=== PATIENT | female | born 1950 | race Caucasian/White ===

== ENCOUNTER 2016-08-14 10:18 | Inpatient (IN) | payer OTHER ==
[~2016-08-14] VITALS: Ht 160 cm; Wt 79.5 kg
[~2016-08-14 10:18] MED LIST: ALPR1TAB2 PO; LEVA0.31 IN; MEMA10TA PO; PRE1T PO; ZOLP10TA PO
[2016-08-14] MEDS ORDERED: ALBUTEROL SULF 2.5 MG/0.5ML(0.5%) NEB SOLN NEB ONE (10:30)
[2016-08-14] MEDS ORDERED: IPRATROPIUM BROM 0.5 MG/2.5ML INH SOL NEB ONE (10:30)
[2016-08-14] MEDS ORDERED: BUDE0.253 IN (10:41)
[2016-08-14] MEDS ORDERED: ALBU1TAB2 PO (10:41)
[2016-08-14] MEDS ORDERED: CITA-73 PO (10:44)
[2016-08-14] MEDS ORDERED: CARI-277 PO (10:44)
[2016-08-14] MEDS ORDERED: MONT10TA34 PO (10:44)
[2016-08-14] MEDS ORDERED: OMEP20CA5 PO (10:44)
[2016-08-14] MEDS ORDERED: ALBUAER3 IN (10:44)
[2016-08-14] MEDS ORDERED: FURO40TA PO (10:44)
[2016-08-14 10:52] LABS: Basophils # (auto) 0.1 uL; Basophils % (auto) 1.7 % (0.0-2.0); DEFINITIVE VIEW TRANSMISSION; Eosinophils # (auto) 0.6 uL; Hematocrit 43.3 % (36.0-46.0); Hemoglobin 13.8 g/dL (12.2-16.2); Lymphocytes # (auto) 1.6 uL; Lymphocytes % (auto) 28.1 % (10.0-50.0); Mean Corpuscular Hgb Conc. 31.9 g/dL (32.0-36.0); Mean Corpuscular Volume 90.9 fL (80.0-100.0); Mean Platelet Volume 7.9 fL (7.4-10.4); Monocytes # (auto) 0.5 uL; Monocytes % (auto) 8.7 % (0.0-12.0); Neutrophils # (auto) 2.9 uL; Neutrophils % (auto) 50.5 % (37.0-80.0); Platelet Count (auto) 345 10^3/uL (140-450); Red Cell Distribution Width 19.1 % (11.6-16.0); White Blood Cell 5.8 10^3/uL (4.4-10.8)
[2016-08-14 11:20] LABS: BUN/Creatinine Ratio 12.3; Bilirubin, Total 0.3 mg/dL (0.2-1.0); Calcium 8.8 mg/dL (8.5-10.1); Potassium 3.7 mmol/L (3.5-5.1); Total Protein 7.5 g/dL (6.4-8.2)
[2016-08-14] MEDS ORDERED: methylPREDNISolone SOD SUCC 125 MG/2 ML VL IV ONE (11:45)
[2016-08-14 13:36] LABS: Anisocytosis Slight; Platelet Estimate Adequate
[2016-08-14] MEDS ORDERED: cefTRIAXone 1GM/50ML D5W 50 ML IV ONE (15:45)
[2016-08-14] MEDS ORDERED: ONDANSETRON HCL 4 MG/2 ML VIAL IV PRN (15:45)
[2016-08-14] MEDS ORDERED: HCTZ 25 MG TAB PO PRN (15:45)
[2016-08-14] MEDS ORDERED: BUDESONIDE (INHALATION) 0.5 MG/2 ML NEB NEB ONE (15:45)
[2016-08-14] MEDS ORDERED: ZOLPIDEM TARTRATE 5 MG TAB PO PRN (15:45)
[2016-08-14] MEDS ORDERED: DOCUSATE SOD 100 MG CAP PO PRN (15:45)
[2016-08-14] MEDS ORDERED: MORPHINE SULF INJ 2 MG/ML SYRINGE 1ML IV PRN ×2 (15:45)
[2016-08-14] MEDS ORDERED: NITROGLYCERIN 0.4 MG SL TAB SL PRN (15:45)
[2016-08-14] MEDS ORDERED: HYDROcodone-ACET 5/325MG TAB PO PRN (15:45)
[2016-08-14] MEDS: BUDESONIDE (INHALATION) 0.5 MG/2 ML NEB NEB SCH (18:15)
[2016-08-14] MEDS: ALBUTEROL SULF 2.5 MG/0.5ML(0.5%) NEB SOLN NEB SCH (18:16)
[2016-08-14] MEDS: IPRATROPIUM BROM 0.5 MG/2.5ML INH SOL NEB SCH (18:16)
[2016-08-14 20:00] VITALS: BP 110/56
[2016-08-14] MEDS: ACETAMINOPHEN 325 MG TAB PO PRN (20:33)
[2016-08-14] MEDS: PANTOPRAZOLE 40 MG TAB PO SCH (21:28)
[2016-08-14] MEDS: SODIUM CHLOR 0.9% PF (SALINE LOCK) 10ML VIAL IV SCH (21:30)
[2016-08-14 22:00] VITALS: BP 110/56
[2016-08-14 22:53] LABS: Urine Bilirubin Negative (Negative); Urine Blood Negative /uL (Negative); Urine Color Yellow (Yellow); Urine Glucose Normal (Normal); Urine Ketone Negative (Negative); Urine Nitrite Negative (Negative); Urine RBC 1 /hpf (0 - 4); Urine Squamous Epithelial Cell FEW /hpf (<5); Urine Urobilinogen Normal (Negative); Urine pH 6.5 (5.0-8.0)
[2016-08-15] VITALS (7 sets, daily range): BP systolic 116–132; BP diastolic 67–75
[2016-08-15] MEDS: ALBUTEROL SULF 2.5 MG/0.5ML(0.5%) NEB SOLN NEB SCH ×3 (01:22→12:00)
[2016-08-15] MEDS: IPRATROPIUM BROM 0.5 MG/2.5ML INH SOL NEB SCH ×3 (01:22→12:00)
[2016-08-15] MEDS: ACETAMINOPHEN 325 MG TAB PO PRN (05:10)
[2016-08-15] MEDS: SODIUM CHLOR 0.9% PF (SALINE LOCK) 10ML VIAL IV SCH (06:13)
[2016-08-15 06:44] LABS: Basophils # (auto) 0 uL; Basophils % (auto) 0.1 % (0.0-2.0); DEFINITIVE VIEW TRANSMISSION; Eosinophils # (auto) 0 uL; Hematocrit 40.4 % (36.0-46.0); Hemoglobin 12.8 g/dL (12.2-16.2); Lymphocytes # (auto) 1.1 uL; Lymphocytes % (auto) 31.7 % (10.0-50.0); Mean Corpuscular Hemoglobin 28.8 pg (28.0-32.0); Mean Corpuscular Hgb Conc. 31.8 g/dL (32.0-36.0); Mean Corpuscular Volume 90.8 fL (80.0-100.0); Mean Platelet Volume 7.7 fL (7.4-10.4); Monocytes # (auto) 0.4 uL; Monocytes % (auto) 10.5 % (0.0-12.0); Neutrophils % (auto) 57.7 % (37.0-80.0); Platelet Count (auto) 333 10^3/uL (140-450); Red Cell Distribution Width 19.3 % (11.6-16.0); White Blood Cell 3.5 10^3/uL (4.4-10.8)
[2016-08-15 07:17] LABS: Albumin 3.5 g/dL (3.4-5.0); Bilirubin, Total 0.2 mg/dL (0.2-1.0); Calcium 8.7 mg/dL (8.5-10.1); Potassium 3.8 mmol/L (3.5-5.1); Total Protein 6.9 g/dL (6.4-8.2)
[2016-08-15] MEDS ORDERED: cefTRIAXone 1GM/50ML D5W 50 ML IV SCH (09:00)
[2016-08-15] MEDS: PANTOPRAZOLE 40 MG TAB PO SCH (09:48)
[2016-08-15] MEDS ORDERED: CITALOPRAM HYDROBR 20 MG TAB PO SCH (10:00)
[2016-08-15] MEDS: BUDESONIDE (INHALATION) 0.5 MG/2 ML NEB NEB SCH (10:00)
[2016-08-15] MEDS ORDERED: PROMETHAZINE W/CODEINE 5 ML ORAL SYRUP PO PRN (13:15)
[2016-08-15] MEDS ORDERED: ALBUTEROL SULF 2.5 MG/0.5ML(0.5%) NEB SOLN NEB SCH (14:00)
[2016-08-15] MEDS ORDERED: IPRATROPIUM BROM 0.5 MG/2.5ML INH SOL NEB SCH (14:00)
[2016-08-15] MEDS ORDERED: methylPREDNISolone SOD SUCC 125 MG/2 ML VL IV ONE (15:30)
[2016-08-15] MEDS ORDERED: BUDESONIDE (INHALATION) 0.5 MG/2 ML NEB NEB ONE (15:30)
[2016-08-15] MEDS ORDERED: ACETYLCYSTEINE 20%(200MG/ML) SOL 4ML NEB ONE ×2 (16:00→22:00)
== END 2016-08-15 19:35 | disposition home health service (06) | DRG 189 ==
LOC: ER 10:22 → TELE 10:23 → TELE-EAST 19:04
PROVIDERS: ADMIT Internal Medicine; ATTEND Internal Medicine
DX: J96.90 Respiratory failure, unspecified, unspecified whether with hypoxia or hypercapnia (principal); J44.1 Chronic obstructive pulmonary disease with (acute) exacerbation; J45.901 Unspecified asthma with (acute) exacerbation; J44.0 Chronic obstructive pulmonary disease with (acute) lower respiratory infection; I70.0 Atherosclerosis of aorta; K21.9 Gastro-esophageal reflux disease without esophagitis; J20.9 Acute bronchitis, unspecified; N18.2 Chronic kidney disease, stage 2 (mild); I12.9 Hypertensive chronic kidney disease with stage 1 through stage 4 chronic kidney disease, or unspecified chronic kidney disease; Z80.9 Family history of malignant neoplasm, unspecified
CPT/HCPCS: 36415; 36600; 71010; 80053; 81001; 82805; 84484; 85025; 87070; 87086; 87205; 93005; 93306; 94640; 96365; 96375; J0696

== ENCOUNTER 2017-03-17 09:28 | Emergency (ER) | payer OTHER ==
[~2017-03-17] VITALS: Ht 160 cm; Wt 79.4 kg
[~2017-03-17 09:28] MED LIST changes: +ALBU1TAB2 PO; +ALBUAER3 IN; -ALPR1TAB2 PO; +BUDE0.253 IN; +CITA-73 PO; +FURO40TA PO; -LEVA0.31 IN; -MEMA10TA PO; +MONT10TA34 PO; +OMEP20CA74 PO; -PRE1T PO; -ZOLP10TA PO
[2017-03-17] MEDS ORDERED: ALPR0.5T PO (10:32)
[2017-03-17] MEDS ORDERED: CARI-277 PO (10:32)
[2017-03-17] MEDS ORDERED: BECL0.07 INH (10:32)
[2017-03-17] MEDS ORDERED: IPRASOL39 NEB (10:32)
[2017-03-17] MEDS ORDERED: UMEC1AER IN (10:33)
[2017-03-17 10:51] LABS: Albumin 3.6 g/dL (3.4-5.0); Alkaline Phosphatase 67 U/L (45-117); Anion Gap 6 (5-15); Aspartate Aminotransferase 13 U/L (15-37); BUN/Creatinine Ratio 18.6; Bilirubin, Total 0.5 mg/dL (0.2-1.0); Blood Urea Nitrogen 13 mg/dL (7-18); Calcium 8.8 mg/dL (8.5-10.1); Carbon Dioxide 28 mmol/L (21-32); Chloride 107 mmol/L (98-107); GFR African American 108 mL/min; GFR Non-African American 89 mL/min; Glucose 96 mg/dL (74-106); Magnesium 2.3 mg/dL (1.6-2.6); Potassium 4.3 mmol/L (3.5-5.1); Sodium 141 mmol/L (136-145); Total Protein 6.7 g/dL (6.4-8.2)
[2017-03-17 11:16] LABS: Basophils # (auto) 0.1 uL; Basophils % (auto) 1.9 % (0.0-2.0); CONDITION Y; DEFINITIVE SEE PRINTOUT; Eosinophils # (auto) 0.8 uL; Eosinophils % (auto) 12.5 % (0.0-7.0); Hematocrit 41.7 % (36.0-46.0); Hemoglobin 14.1 g/dL (12.2-16.2); Lymphocytes # (auto) 2.2 uL; Lymphocytes % (auto) 32.6 % (10.0-50.0); Mean Corpuscular Hemoglobin 32.7 pg (28.0-32.0); Mean Corpuscular Hgb Conc. 33.8 g/dL (32.0-36.0); Mean Corpuscular Volume 96.7 fL (80.0-100.0); Mean Platelet Volume 8.4 fL (6.9-10.8); Monocytes # (auto) 0.5 uL; Monocytes % (auto) 7.8 % (0.0-12.0); Neutrophils % (auto) 45.2 % (37.0-80.0); Platelet Count (auto) 286 10^3/uL (140-450); White Blood Cell 6.6 10^3/uL (4.4-10.8)
[2017-03-17] MEDS ORDERED: SODIUM CHLORIDE 0.9% 1,000 ML IV ONE (12:12)
[2017-03-17] MEDS ORDERED: ALBUTEROL SULF 2.5 MG/0.5ML(0.5%) NEB SOLN NEB ONE (12:15)
[2017-03-17] MEDS ORDERED: IPRATROPIUM BROM 0.5 MG/2.5ML INH SOL NEB ONE (12:15)
[2017-03-17] MEDS ORDERED: methylPREDNISolone SOD SUCC 125 MG/2 ML VL IV ONE (12:15)
[2017-03-17 14:22] LABS: Urine Bilirubin Negative (Negative); Urine Blood Negative /uL (Negative); Urine Color Yellow (Yellow); Urine Glucose Normal (Normal); Urine Ketone Negative (Negative); Urine Nitrite Negative (Negative); Urine RBC <1 /hpf (0 - 4); Urine Urobilinogen Normal (Negative); Urine pH 5.5 (5.0-8.0)
[2017-03-17 14:36] VITALS: BP 121/55
== END 2017-03-17 15:38 | disposition home or self-care (01) ==
LOC: ER 09:28
DX: J44.1 Chronic obstructive pulmonary disease with (acute) exacerbation (principal); F41.9 Anxiety disorder, unspecified; I50.9 Heart failure, unspecified; K21.9 Gastro-esophageal reflux disease without esophagitis
CPT/HCPCS: 36415; 71020; 80053; 81001; 83735; 84443; 84484; 85025; 93005; 94640; 94761; 96361; 96374; 99285; J2930; J7030

== ENCOUNTER 2017-05-08 11:25 | Inpatient (IN) | payer OTHER ==
[~2017-05-08] VITALS: Ht 167.6 cm; Wt 86.5 kg
[~2017-05-08 11:25] MED LIST changes: -ALBU1TAB2 PO; +ALPR0.5T PO; +BECL0.07 INH; +CARI-277 PO; +IPRASOL39 NEB; -MONT10TA34 PO; -OMEP20CA74 PO; +UMEC1AER IN
[2017-05-08] MEDS ORDERED: SODIUM CHLORIDE 0.9% 500 ML IV ONE (11:36)
[2017-05-08 12:08] LABS: Basophils # (auto) 0 uL; Basophils % (auto) 0.9 % (0.0-2.0); Eosinophils # (auto) 0 uL; Eosinophils % (auto) 0.2 % (0.0-7.0); Hemoglobin 13.5 g/dL (12.2-16.2); Lymphocytes # (auto) 0.9 uL; Lymphocytes % (auto) 20.1 % (10.0-50.0); Mean Corpuscular Hemoglobin 33.4 pg (28.0-32.0); Mean Corpuscular Hgb Conc. 32.9 g/dL (32.0-36.0); Mean Corpuscular Volume 101.6 fL (80.0-100.0); Mean Platelet Volume 7.2 fL (6.9-10.8); Monocytes # (auto) 0.2 uL; Monocytes % (auto) 5.5 % (0.0-12.0); Neutrophils # (auto) 3.2 uL; Neutrophils % (auto) 73.3 % (37.0-80.0); Nucleated Red Blood Cells % 0.3 %; Platelet Count (auto) 118 10^3/uL (140-450); Red Cell Distribution Width 16.3 % (11.8-14.3); White Blood Cell 4.4 10^3/uL (4.4-10.8)
[2017-05-08 12:28] LABS: Albumin 2.8 g/dL (3.4-5.0); Anion Gap 8 (5-15); Aspartate Aminotransferase 34 U/L (15-37); BUN/Creatinine Ratio 8.5; Blood Urea Nitrogen 7 mg/dL (7-18); Calcium 7.8 mg/dL (8.5-10.1); Carbon Dioxide 26 mmol/L (21-32); Chloride 101 mmol/L (98-107); GFR African American 90 mL/min; GFR Non-African American 74 mL/min; Glucose 93 mg/dL (74-106); Magnesium 2.4 mg/dL (1.6-2.6); Potassium 4.3 mmol/L (3.5-5.1); Sodium 135 mmol/L (136-145)
[2017-05-08 12:33] LABS: Alkaline Phosphatase 61 U/L (45-117); Bilirubin, Total 0.6 mg/dL (0.2-1.0); Total Protein 5.9 g/dL (6.4-8.2)
[2017-05-08] MEDS ORDERED: NITROGLYCERIN 0.4 MG SL TAB SL PRN (14:30)
[2017-05-08] MEDS ORDERED: ALBUTEROL SULF 2.5 MG/0.5ML(0.5%) NEB SOLN NEB PRN (14:30)
[2017-05-08] MEDS ORDERED: ALPRAZolam 0.25 MG TAB PO PRN (14:30)
[2017-05-08] MEDS ORDERED: MORPHINE SULFATE 10 MG/ML INJ 1ML SDV IV PRN (14:30)
[2017-05-08] MEDS ORDERED: PANTOPRAZOLE 40 MG TAB PO ONE (14:45)
[2017-05-08] MEDS ORDERED: CITALOPRAM HYDROBR 20 MG TAB PO ONE (14:45)
[2017-05-08] MEDS ORDERED: AMIODARONE HCL 200 MG TAB PO ONE (14:45)
[2017-05-08 18:44] LABS: B-Type Natriuretic Peptide 14.2 pg/mL (0-100); Temperature: 21.6 C (20.0-25.0)
[2017-05-08] MEDS: IPRATROPIUM BROM 0.5 MG/2.5ML INH SOL NEB SCH (20:04)
[2017-05-08] MEDS: APIXABAN 5 MG TAB PO SCH (21:09)
[2017-05-08] MEDS: ATORVASTATIN 20 MG TAB PO SCH (21:09)
[2017-05-08 21:25] VITALS: BP 131/67
[2017-05-08] MEDS ORDERED: DOCUSATE CALCIUM 240 MG CAP PO ONE (22:30)
[2017-05-08] MEDS ORDERED: LACTULOSE 20Gm/30ML SOLN PO ONE (22:45)
[2017-05-09] VITALS (7 sets, daily range): BP systolic 112–135; BP diastolic 51–68
[2017-05-09] MEDS ORDERED: INFLUENZA QUAD 2017-2018 0.5 ML SYRG IM ONE (02:00)
[2017-05-09] MEDS: IPRATROPIUM BROM 0.5 MG/2.5ML INH SOL NEB SCH ×3 (06:35→21:53)
[2017-05-09 06:36] LABS: Basophils # (auto) 0 uL; Basophils % (auto) 1.1 % (0.0-2.0); Eosinophils # (auto) 0 uL; Eosinophils % (auto) 0.3 % (0.0-7.0); Hematocrit 34.9 % (36.0-46.0); Hemoglobin 12.1 g/dL (12.2-16.2); Lymphocytes # (auto) 0.7 uL; Lymphocytes % (auto) 25.9 % (10.0-50.0); Mean Corpuscular Hemoglobin 33.6 pg (28.0-32.0); Mean Corpuscular Hgb Conc. 34.6 g/dL (32.0-36.0); Mean Corpuscular Volume 97.2 fL (80.0-100.0); Mean Platelet Volume 7.3 fL (6.9-10.8); Monocytes # (auto) 0.2 uL; Monocytes % (auto) 6.1 % (0.0-12.0); Neutrophils # (auto) 1.8 uL; Neutrophils % (auto) 66.6 % (37.0-80.0); Nucleated Red Blood Cells % 0.2 %; Platelet Count (auto) 99 10^3/uL (140-450); Red Cell Distribution Width 15.9 % (11.8-14.3); White Blood Cell 2.7 10^3/uL (4.4-10.8)
[2017-05-09 06:50] LABS: INR 1.02 (0.9-1.15); Partial Thromboplastin Time 29.7 sec (22.64-33.71); Prothrombin Time 11.1 sec (9.37-12.3)
[2017-05-09 06:53] LABS: Urine Bilirubin Negative (Negative); Urine Blood 1+ /uL (Negative); Urine Color Yellow (Yellow); Urine Glucose Normal (Normal); Urine Ketone 1+ (Negative); Urine Mucus FEW (None Seen); Urine Nitrite Negative (Negative); Urine RBC 13 /hpf (0 - 4); Urine Squamous Epithelial Cell FEW /hpf (<5)
[2017-05-09] MEDS: PANTOPRAZOLE 40 MG TAB PO SCH (10:39)
[2017-05-09] MEDS: CITALOPRAM HYDROBR 20 MG TAB PO SCH (10:39)
[2017-05-09] MEDS: APIXABAN 5 MG TAB PO SCH ×2 (10:40→21:48)
[2017-05-09] MEDS: AMIODARONE HCL 200 MG TAB PO SCH (10:40)
[2017-05-09] MEDS ORDERED: DOCUSATE SOD 100 MG CAP PO PRN (11:00)
[2017-05-09] MEDS ORDERED: ZOLPIDEM TARTRATE 5 MG TAB PO PRN (17:45)
[2017-05-09] MEDS: ATORVASTATIN 20 MG TAB PO SCH (21:48)
[2017-05-09] MEDS: BUDESONIDE (INHALATION) 0.5 MG/2 ML NEB NEB SCH (21:53)
[2017-05-10 05:00] VITALS: BP 113/61
[2017-05-10] MEDS: BUDESONIDE (INHALATION) 0.5 MG/2 ML NEB NEB SCH (06:47)
[2017-05-10] MEDS: IPRATROPIUM BROM 0.5 MG/2.5ML INH SOL NEB SCH ×2 (06:47→14:17)
[2017-05-10 08:25] VITALS: BP 112/57
[2017-05-10] MEDS ORDERED: DOBUTamine 1000MCG/ML 100 ML IV ONE (08:41)
[2017-05-10] MEDS ORDERED: ATROPINE SULF 0.5 MG/5ML SYR ONE (10:08)
[2017-05-10] MEDS ORDERED: DOBUTamine 1000MCG/ML 250 ML IV ONE (10:08)
[2017-05-10] MEDS ORDERED: IPRATROPIUM BROM 0.5 MG/2.5ML INH SOL ONE (11:27)
[2017-05-10] MEDS ORDERED: ALBUTEROL SULF 2.5 MG/0.5ML(0.5%) NEB SOLN ONE (11:27)
[2017-05-10] MEDS ORDERED: SODIUM CHLORIDE 0.9% 250 ML IV ONE (12:00)
[2017-05-10] MEDS: APIXABAN 5 MG TAB PO SCH (14:09)
[2017-05-10] MEDS: PANTOPRAZOLE 40 MG TAB PO SCH (14:09)
[2017-05-10] MEDS: AMIODARONE HCL 200 MG TAB PO SCH (14:09)
[2017-05-10] MEDS: CITALOPRAM HYDROBR 20 MG TAB PO SCH (14:10)
== END 2017-05-10 16:43 | disposition home or self-care (01) | DRG 202 ==
LOC: EDBD 11:25 → ER 11:25 → TELE 11:26 → TELE-EAST 23:47
PROVIDERS: ADMIT Internal Medicine; ATTEND Internal Medicine
DX: J45.901 Unspecified asthma with (acute) exacerbation (principal); D61.818 Other pancytopenia; E44.0 Moderate protein-calorie malnutrition; D68.69 Other thrombophilia; I48.0 Paroxysmal atrial fibrillation; J44.9 Chronic obstructive pulmonary disease, unspecified; F32.9 Major depressive disorder, single episode, unspecified; K21.9 Gastro-esophageal reflux disease without esophagitis; M19.90 Unspecified osteoarthritis, unspecified site; R07.89 Other chest pain; Z23 Encounter for immunization; Z68.30 Body mass index [BMI] 30.0-30.9, adult; Z88.2 Allergy status to sulfonamides; Z79.01 Long term (current) use of anticoagulants
CPT/HCPCS: 36415; 70450; 71010; 78452; 80053; 81001; 83735; 83880; 84443; 84484; 85025; 85379; 85610; 85730; 87081; 93005; 93017; 93306; 94640; 94761; 96360; 96361; J0461

== ENCOUNTER 2017-09-03 10:42 | Inpatient (IN) | payer MEDICARE, OTHER ==
[~2017-09-03] VITALS: Ht 160 cm; Wt 58.6 kg
[~2017-09-03 10:42] MED LIST changes: +ALB5IS NEB; +CEPH-37 PO; +IPR002IS NEB; +PRE5T PO
[2017-09-03] MEDS ORDERED: methylPREDNISolone SOD SUCC 125 MG/2 ML VL IV ONE (12:15)
[2017-09-03] MEDS ORDERED: IPRATROPIUM BROM 0.5 MG/2.5ML INH SOL HHN ONE (12:15)
[2017-09-03] MEDS ORDERED: ALBUTEROL SULF 2.5 MG/0.5ML(0.5%) NEB SOLN HHN ONE (12:15)
[2017-09-03 12:28] LABS: Basophils # (auto) 0.1 uL; Basophils % (auto) 1.4 % (0.0-2.0); Eosinophils # (auto) 0.6 uL; Eosinophils % (auto) 7.9 % (0.0-7.0); Hematocrit 44.3 % (36.0-46.0); Lymphocytes # (auto) 0.8 uL; Lymphocytes % (auto) 10.4 % (10.0-50.0); Mean Corpuscular Hgb Conc. 33.9 g/dL (32.0-36.0); Mean Corpuscular Volume 97.4 fL (80.0-100.0); Monocytes # (auto) 0.2 uL; Monocytes % (auto) 2.8 % (0.0-12.0); Neutrophils # (auto) 5.6 uL; Neutrophils % (auto) 77.5 % (37.0-80.0); Platelet Count (auto) 241 10^3/uL (140-450); Red Blood Cells 4.55 10^6/uL (4.0-5.20); Red Cell Distribution Width 15.8 % (11.8-14.3); White Blood Cell 7.2 10^3/uL (4.4-10.8)
[2017-09-03 12:41] LABS: Albumin 4.1 g/dL (3.4-5.0); Bilirubin, Total 0.5 mg/dL (0.2-1.0); Potassium 3.7 mmol/L (3.5-5.1); Total Protein 7.3 g/dL (6.4-8.2)
[2017-09-03 13:09] LABS: Magnesium 2.5 mg/dL (1.6-2.6)
[2017-09-03] MEDS ORDERED: ACETAMINOPHEN 325 MG TAB PO PRN (15:45)
[2017-09-03] MEDS ORDERED: NITROGLYCERIN 0.4 MG SL TAB SL PRN (15:45)
[2017-09-03] MEDS ORDERED: ONDANSETRON HCL 4 MG/2 ML VIAL IV PRN (15:45)
[2017-09-03] MEDS ORDERED: MORPHINE SULFATE 4 MG/ML SYR/VIAL IV PRN ×2 (15:45)
[2017-09-03] MEDS ORDERED: cefTRIAXone 1GM/10ml IVPUSH 10 ML IV ONE (16:00)
[2017-09-03 17:14] LABS: Urine Bacteria FEW /hpf (None Seen); Urine Blood Negative /uL (Negative); Urine Mucus FEW (None Seen); Urine Specific Gravity 1.019 (1.001-1.035); Urine WBC 6 /hpf (0 - 5)
[2017-09-03] MEDS: methylPREDNISolone SOD SUCC 40 MG/ML VL IV SCH (17:48)
[2017-09-03] MEDS: ALBUTEROL SULF 2.5 MG/0.5ML(0.5%) NEB SOLN NEB SCH ×2 (19:22→21:59)
[2017-09-03] MEDS: IPRATROPIUM BROM 0.5 MG/2.5ML INH SOL NEB SCH ×2 (19:22→21:59)
[2017-09-03 19:59] VITALS: BP 148/100
[2017-09-03] MEDS: SODIUM CHLOR 0.9% PF (SALINE LOCK) 10ML VIAL IV SCH (22:12)
[2017-09-03] MEDS: FAMOTIDINE 20 MG TAB PO SCH (22:22)
[2017-09-03] MEDS: TEMAZEPAM 15 MG CAP PO PRN (23:23)
[2017-09-04] MEDS: methylPREDNISolone SOD SUCC 40 MG/ML VL IV SCH ×5 (00:08→23:12)
[2017-09-04 00:38] LABS: Alanine Aminotransferase 22 U/L (13-56); Albumin 3.7 g/dL (3.4-5.0); Anion Gap 11 (5-15); Aspartate Aminotransferase 11 U/L (15-37); BUN/Creatinine Ratio 19.6; Blood Urea Nitrogen 20 mg/dL (7-18); Calcium 8.7 mg/dL (8.5-10.1); Carbon Dioxide 24 mmol/L (21-32); Chloride 106 mmol/L (98-107); GFR African American 70 mL/min; GFR Non-African American 58 mL/min; Glucose 160 mg/dL (74-106); Potassium 3.5 mmol/L (3.5-5.1); Sodium 141 mmol/L (136-145)
[2017-09-04 00:43] LABS: Alkaline Phosphatase 59 U/L (45-117); Bilirubin, Total 0.3 mg/dL (0.2-1.0); Total Protein 6.6 g/dL (6.4-8.2)
[2017-09-04] MEDS: HYDROcodone-ACET 5/325MG TAB PO PRN ×4 (01:21→23:09)
[2017-09-04 01:24] VITALS: BP 135/58
[2017-09-04] MEDS: ALBUTEROL SULF 2.5 MG/0.5ML(0.5%) NEB SOLN NEB SCH ×6 (03:11→22:01)
[2017-09-04] MEDS: IPRATROPIUM BROM 0.5 MG/2.5ML INH SOL NEB SCH ×6 (03:11→22:00)
[2017-09-04 05:15] LABS: Basophils # (auto) 0 uL; Basophils % (auto) 0.2 % (0.0-2.0); Eosinophils # (auto) 0 uL; Hematocrit 41.1 % (36.0-46.0); Hemoglobin 13.9 g/dL (12.2-16.2); Lymphocytes # (auto) 0.5 uL; Lymphocytes % (auto) 12.2 % (10.0-50.0); Mean Corpuscular Hemoglobin 33.1 pg (28.0-32.0); Mean Corpuscular Hgb Conc. 33.7 g/dL (32.0-36.0); Mean Corpuscular Volume 98.1 fL (80.0-100.0); Monocytes # (auto) 0 uL; Neutrophils # (auto) 3.8 uL; Neutrophils % (auto) 86.6 % (37.0-80.0); Platelet Count (auto) 214 10^3/uL (140-450); Red Blood Cells 4.19 10^6/uL (4.0-5.20); Red Cell Distribution Width 15.9 % (11.8-14.3); White Blood Cell 4.4 10^3/uL (4.4-10.8)
[2017-09-04] MEDS: SODIUM CHLOR 0.9% PF (SALINE LOCK) 10ML VIAL IV SCH ×3 (05:29→21:37)
[2017-09-04 08:00] VITALS: BP 126/65
[2017-09-04] MEDS: cefTRIAXone 1GM/10ml IVPUSH 10 ML IV SCH (09:48)
[2017-09-04] MEDS: MULTIPLE VITAMIN TAB PO SCH (09:48)
[2017-09-04] MEDS: POTASSIUM CHL 10 Meq TABLET PO SCH (09:51)
[2017-09-04] MEDS: FUROSEMIDE 40 MG TAB PO SCH (09:51)
[2017-09-04] MEDS: FAMOTIDINE 20 MG TAB PO SCH ×2 (09:52→21:37)
[2017-09-04 12:00] VITALS: BP 122/66
[2017-09-04] MEDS ORDERED: ASCO500T11 PO (15:43)
[2017-09-04] MEDS ORDERED: CODCAP28 PO (15:43)
[2017-09-04] MEDS ORDERED: AMIO200T33 PO (15:43)
[2017-09-04] MEDS ORDERED: FERR1TAB36 PO (15:43)
[2017-09-04] MEDS ORDERED: CYA100I PO (15:43)
[2017-09-04] MEDS ORDERED: APIX5TAB PO (15:43)
[2017-09-04] MEDS ORDERED: CHOL20007 PO (15:43)
[2017-09-04 16:00] VITALS: BP 140/68
[2017-09-04] MEDS ORDERED: CHOLECALCIFEROL (VITD3) 1,000 UNIT TAB PO ONE (17:00)
[2017-09-04 20:00] VITALS: BP 131/73
[2017-09-04] MEDS: TEMAZEPAM 15 MG CAP PO PRN (21:37)
[2017-09-04] MEDS ORDERED: BUDESONIDE (INHALATION) 0.5 MG/2 ML NEB NEB SCH (22:00)
[2017-09-05] MEDS: IPRATROPIUM BROM 0.5 MG/2.5ML INH SOL NEB SCH ×6 (01:59→23:18)
[2017-09-05] MEDS: ALBUTEROL SULF 2.5 MG/0.5ML(0.5%) NEB SOLN NEB SCH ×6 (02:00→23:18)
[2017-09-05] MEDS: HYDROcodone-ACET 5/325MG TAB PO PRN (02:46)
[2017-09-05 05:26] VITALS: BP 122/45
[2017-09-05] MEDS: methylPREDNISolone SOD SUCC 40 MG/ML VL IV SCH ×4 (06:26→23:32)
[2017-09-05] MEDS: SODIUM CHLOR 0.9% PF (SALINE LOCK) 10ML VIAL IV SCH ×3 (06:27→21:17)
[2017-09-05 08:47] VITALS: BP 144/67
[2017-09-05] MEDS: cefTRIAXone 1GM/10ml IVPUSH 10 ML IV SCH (09:10)
[2017-09-05] MEDS: DOCUSATE SOD 100 MG CAP PO PRN (09:10)
[2017-09-05] MEDS: CHOLECALCIFEROL (VITD3) 1,000 UNIT TAB PO SCH (11:00)
[2017-09-05] MEDS: FAMOTIDINE 20 MG TAB PO SCH ×2 (11:00→21:16)
[2017-09-05] MEDS: FUROSEMIDE 40 MG TAB PO SCH (11:01)
[2017-09-05] MEDS: POTASSIUM CHL 10 Meq TABLET PO SCH (11:01)
[2017-09-05] MEDS: MULTIPLE VITAMIN TAB PO SCH (11:01)
[2017-09-05 12:07] VITALS: BP 130/67
[2017-09-05] MEDS ORDERED: PANTOPRAZOLE 40 MG/10 ML VIAL IV ONE (15:15)
[2017-09-05] MEDS ORDERED: ONDANSETRON HCL 4 MG/2 ML VIAL IV PRN (15:15)
[2017-09-05] MEDS ORDERED: POLYETHYLENE GLYCOL 17 GM PWDR PO PRN (15:30)
[2017-09-05] MEDS ORDERED: POLYETHYLENE GLYCOL 17 GM PWDR PO ONE (15:30)
[2017-09-05 17:07] VITALS: BP 128/56
[2017-09-05] MEDS: METOCLOPRAMIDE HCL 5MG/ml INJ 2ml VIAL IV SCH ×2 (17:36→23:32)
[2017-09-05] MEDS: TEMAZEPAM 15 MG CAP PO PRN (21:16)
[2017-09-05] MEDS: LACTULOSE 20Gm/30ML SOLN PO PRN (21:17)
[2017-09-06] MEDS: IPRATROPIUM BROM 0.5 MG/2.5ML INH SOL NEB SCH ×6 (02:00→22:18)
[2017-09-06] MEDS: ALBUTEROL SULF 2.5 MG/0.5ML(0.5%) NEB SOLN NEB SCH ×6 (02:00→22:18)
[2017-09-06] MEDS: METOCLOPRAMIDE HCL 5MG/ml INJ 2ml VIAL IV SCH ×3 (05:49→17:43)
[2017-09-06] MEDS: methylPREDNISolone SOD SUCC 40 MG/ML VL IV SCH ×3 (05:49→17:44)
[2017-09-06] MEDS: SODIUM CHLOR 0.9% PF (SALINE LOCK) 10ML VIAL IV SCH ×3 (05:50→22:00)
[2017-09-06 06:00] VITALS: BP 136/61
[2017-09-06 07:04] LABS: Basophils # (auto) 0 uL; Basophils % (auto) 0.1 % (0.0-2.0); Eosinophils # (auto) 0 uL; Hematocrit 40.2 % (36.0-46.0); Hemoglobin 13.6 g/dL (12.2-16.2); Lymphocytes # (auto) 0.4 uL; Lymphocytes % (auto) 4.1 % (10.0-50.0); Mean Corpuscular Hemoglobin 33.3 pg (28.0-32.0); Mean Corpuscular Hgb Conc. 33.9 g/dL (32.0-36.0); Mean Corpuscular Volume 98.4 fL (80.0-100.0); Monocytes # (auto) 0.3 uL; Monocytes % (auto) 2.6 % (0.0-12.0); Neutrophils # (auto) 9.6 uL; Neutrophils % (auto) 93.2 % (37.0-80.0); Platelet Count (auto) 215 10^3/uL (140-450); Red Blood Cells 4.08 10^6/uL (4.0-5.20); Red Cell Distribution Width 16.3 % (11.8-14.3); White Blood Cell 10.3 10^3/uL (4.4-10.8)
[2017-09-06 07:24] LABS: Albumin 3.6 g/dL (3.4-5.0); Calcium 8.9 mg/dL (8.5-10.1); Potassium 3.5 mmol/L (3.5-5.1)
[2017-09-06 07:28] LABS: BUN/Creatinine Ratio 29.7
[2017-09-06 07:29] LABS: Bilirubin, Total 0.3 mg/dL (0.2-1.0)
[2017-09-06 09:00] VITALS: BP 122/66
[2017-09-06] MEDS: PANTOPRAZOLE 40 MG/10 ML VIAL IV SCH (09:47)
[2017-09-06] MEDS: POTASSIUM CHL 10 Meq TABLET PO SCH (09:48)
[2017-09-06] MEDS: FAMOTIDINE 20 MG TAB PO SCH ×2 (09:48→22:00)
[2017-09-06] MEDS: MULTIPLE VITAMIN TAB PO SCH (09:48)
[2017-09-06] MEDS: CHOLECALCIFEROL (VITD3) 1,000 UNIT TAB PO SCH (09:48)
[2017-09-06] MEDS: FUROSEMIDE 40 MG TAB PO SCH (09:49)
[2017-09-06] MEDS: cefTRIAXone 1GM/10ml IVPUSH 10 ML IV SCH (09:56)
[2017-09-06] MEDS: DOCUSATE SOD 100 MG CAP PO PRN (09:57)
[2017-09-06 13:00] VITALS: BP 119/54
[2017-09-06 20:18] VITALS: BP 119/54
[2017-09-06 22:00] VITALS: BP 138/59
[2017-09-07] MEDS: METOCLOPRAMIDE HCL 5MG/ml INJ 2ml VIAL IV SCH ×3 (00:09→12:24)
[2017-09-07] MEDS: methylPREDNISolone SOD SUCC 40 MG/ML VL IV SCH ×3 (00:09→12:25)
[2017-09-07] MEDS: TEMAZEPAM 15 MG CAP PO PRN (00:10)
[2017-09-07] MEDS: ALBUTEROL SULF 2.5 MG/0.5ML(0.5%) NEB SOLN NEB SCH ×4 (02:31→14:25)
[2017-09-07] MEDS: IPRATROPIUM BROM 0.5 MG/2.5ML INH SOL NEB SCH ×4 (02:31→14:25)
[2017-09-07 05:00] VITALS: BP 117/57
[2017-09-07] MEDS: SODIUM CHLOR 0.9% PF (SALINE LOCK) 10ML VIAL IV SCH ×2 (05:40→13:56)
[2017-09-07 08:00] VITALS: BP 134/73
[2017-09-07] MEDS: cefTRIAXone 1GM/10ml IVPUSH 10 ML IV SCH (09:00)
[2017-09-07] MEDS: POTASSIUM CHL 10 Meq TABLET PO SCH (10:00)
[2017-09-07] MEDS: FUROSEMIDE 40 MG TAB PO SCH (10:00)
[2017-09-07] MEDS: CHOLECALCIFEROL (VITD3) 1,000 UNIT TAB PO SCH (10:00)
[2017-09-07] MEDS: FAMOTIDINE 20 MG TAB PO SCH (10:00)
[2017-09-07] MEDS: MULTIPLE VITAMIN TAB PO SCH (10:00)
[2017-09-07] MEDS: PANTOPRAZOLE 40 MG/10 ML VIAL IV SCH (10:00)
[2017-09-07] MEDS ORDERED: DOBUTamine 1000MCG/ML 250 ML IV ONE (10:19)
[2017-09-07 12:00] VITALS: BP 138/72
[2017-09-07] MEDS: LACTULOSE 20Gm/30ML SOLN PO PRN (12:30)
[2017-09-07] MEDS ORDERED: MAGNESIUM OXIDE 400 MG TAB PO SCH (22:00)
== END 2017-09-07 17:20 | disposition home or self-care (01) | DRG 191 ==
LOC: ER 10:42 → OVERFLOW 10:43 → DOU IN ICU 23:52 → TELE-CENTR 09-04 20:30
PROVIDERS: ADMIT Internal Medicine; ATTEND Internal Medicine
DX: J44.0 Chronic obstructive pulmonary disease with (acute) lower respiratory infection (principal); I47.2 Ventricular tachycardia; I27.20 Pulmonary hypertension, unspecified; I13.0 Hypertensive heart and chronic kidney disease with heart failure and stage 1 through stage 4 chronic kidney disease, or unspecified chronic kidney disease; I48.0 Paroxysmal atrial fibrillation; J45.901 Unspecified asthma with (acute) exacerbation; J44.1 Chronic obstructive pulmonary disease with (acute) exacerbation; N18.2 Chronic kidney disease, stage 2 (mild); R06.03 Acute respiratory distress; J20.9 Acute bronchitis, unspecified; K21.9 Gastro-esophageal reflux disease without esophagitis; K31.84 Gastroparesis; K59.00 Constipation, unspecified; F32.9 Major depressive disorder, single episode, unspecified; Z88.2 Allergy status to sulfonamides; Z80.8 Family history of malignant neoplasm of other organs or systems
CPT/HCPCS: 36415; 36600; 71046; 80053; 81001; 82805; 83605; 83735; 83880; 84484; 85025; 87040; 87070; 87081; 87205; 87804; 93005; 93306; 94640; 94644; 94761; 96374; C9113; J2405

== ENCOUNTER 2018-04-24 09:19 | Emergency (ER) | payer OTHER ==
[~2018-04-24] VITALS: Ht 160 cm; Wt 68.0 kg
[~2018-04-24 09:19] MED LIST changes: +ASCO500T11 PO; -BECL0.07 INH; -CEPH-37 PO; +CHOL20007 PO; -CITA-73 PO; +CODCAP28 PO; +CYA100I PO; +FERR1TAB36 PO; -FURO40TA PO; -IPRASOL39 NEB; -PRE5T PO; -UMEC1AER IN
[2018-04-24 09:46] VITALS: BP 111/55
[2018-04-24] MEDS ORDERED: methylPREDNISolone SOD SUCC 125 MG/2 ML VL IM ONE (10:00)
[2018-04-24] MEDS ORDERED: cefTRIAXone SOD 1,000 MG VL IM ONE (10:00)
[2018-04-24] MEDS ORDERED: diphenhdrAMINE HCL 25 MG CAP PO ONE (10:00)
[2018-04-24] MEDS ORDERED: LIDOCAINE 1%HCL (LOCAL ANESTH) 10 ML MDV ONE (10:06)
[2018-04-24] MEDS ORDERED: HYDROCORTISONE 2.5% TOPICAL CREAM 30GM TUBE TOP ONE (10:30)
== END 2018-04-24 11:13 | disposition home or self-care (01) ==
LOC: ER 09:19
DX: R21 Rash and other nonspecific skin eruption (principal); J44.9 Chronic obstructive pulmonary disease, unspecified; K21.9 Gastro-esophageal reflux disease without esophagitis; Z88.2 Allergy status to sulfonamides
CPT/HCPCS: 93005; 96372; 99284; J0696; J2001; J2930

== ENCOUNTER 2018-05-25 11:41 | Emergency (ER) | payer OTHER ==
[~2018-05-25] VITALS: Ht 160 cm; Wt 77.1 kg
[2018-05-25 13:15] LABS: Hematocrit 39.6 % (36.0-46.0); Mean Corpuscular Hemoglobin 32.5 pg (28.0-32.0); Mean Corpuscular Hgb Conc. 32.7 g/dL (32.0-36.0); Mean Corpuscular Volume 99.2 fL (80.0-100.0); Platelet Count (auto) 192 10^3/uL (140-450); Red Cell Distribution Width 13.7 % (11.8-14.3); White Blood Cell 4.7 10^3/uL (4.4-10.8)
[2018-05-25 13:48] LABS: Band Neutrophils % (manual) 0; Basophils % (manual) 0 (0.0-2.0); Blast Cells 0; Metamyelocytes % 0; Myelocytes % 0; Promyelocytes % 0; Reactive Lymphocytes 0
[2018-05-25 13:50] LABS: INR 0.95 (0.9-1.15); Partial Thromboplastin Time 27.5 sec (23.78-33.04); Prothrombin Time 10.2 sec (9.27-12.13)
[2018-05-25 13:52] LABS: Albumin 3.4 g/dL (3.4-5.0); Anion Gap 5 (5-15); Blood Urea Nitrogen 12 mg/dL (7-18); Calcium 8.8 mg/dL (8.5-10.1); Carbon Dioxide 30 mmol/L (21-32); Chloride 104 mmol/L (98-107); Glucose 82 mg/dL (74-106); Magnesium 2.4 mg/dL (1.6-2.6); Potassium 4.2 mmol/L (3.5-5.1); Sodium 139 mmol/L (136-145)
[2018-05-25 13:58] LABS: Alanine Aminotransferase 20 U/L (13-56); Alkaline Phosphatase 65 U/L (45-117); Aspartate Aminotransferase 20 U/L (15-37); Bilirubin, Total 0.9 mg/dL (0.2-1.0); GFR African American 92 mL/min; GFR Non-African American 76 mL/min; Total Protein 6.2 g/dL (6.4-8.2)
[2018-05-25 14:30] VITALS: BP 114/72
[2018-05-25 14:59] LABS: Eosinophils % (manual) 18 (0-7); Lymphocytes % (manual) 23 (10.0-50.0); Monocytes % (manual) 7 (0-12)
== END 2018-05-25 15:09 | disposition home or self-care (01) ==
LOC: ER 11:41
DX: J44.9 Chronic obstructive pulmonary disease, unspecified (principal)
CPT/HCPCS: 36415; 71045; 80053; 83735; 83880; 84484; 85007; 85027; 85610; 85730; 93005

== ENCOUNTER 2018-08-14 11:31 | Inpatient (IN) | payer BC, OTHER ==
[~2018-08-14] VITALS: Ht 160 cm; Wt 66.0 kg
[~2018-08-14 11:31] MED LIST changes: +LEVO500T21 PO; +PRE5T GT
[2018-08-14] MEDS ORDERED: SODIUM CHLORIDE 0.9% 1,000 ML IV ONE (12:07)
[2018-08-14] MEDS ORDERED: ALBUTEROL SULF 2.5 MG/0.5ML(0.5%) NEB SOLN NEB ONE ×2 (12:15→17:15)
[2018-08-14] MEDS ORDERED: methylPREDNISolone SOD SUCC 125 MG/2 ML VL IV ONE (12:15)
[2018-08-14] MEDS ORDERED: IPRATROPIUM BROM 0.5 MG/2.5ML INH SOL NEB ONE ×2 (12:15→17:15)
[2018-08-14 12:56] LABS: Hemoglobin 14.1 g/dL (12.2-16.2); Mean Corpuscular Hgb Conc. 34.3 g/dL (32.0-36.0); Mean Corpuscular Volume 98.9 fL (80.0-100.0); Platelet Count (auto) 226 10^3/uL (140-450); Red Blood Cells 4.15 10^6/uL (4.0-5.20); Red Cell Distribution Width 12.9 % (11.8-14.3); White Blood Cell 6.1 10^3/uL (4.4-10.8)
[2018-08-14 13:01] LABS: Band Neutrophils % (manual) 0; Basophils % (manual) 0 (0.0-2.0); Blast Cells 0; Metamyelocytes % 0; Myelocytes % 0; Promyelocytes % 0; Reactive Lymphocytes 0
[2018-08-14 13:21] LABS: Albumin 3.7 g/dL (3.4-5.0); Anion Gap 8 (5-15); Blood Urea Nitrogen 7 mg/dL (7-18); Calcium 8.8 mg/dL (8.5-10.1); Carbon Dioxide 27 mmol/L (21-32); Chloride 98 mmol/L (98-107); Glucose 76 mg/dL (74-106); Magnesium 1.9 mg/dL (1.6-2.6); Potassium 3.7 mmol/L (3.5-5.1); Sodium 133 mmol/L (136-145)
[2018-08-14 13:27] LABS: Alanine Aminotransferase 18 U/L (13-56); Alkaline Phosphatase 64 U/L (45-117); Aspartate Aminotransferase 17 U/L (15-37); BUN/Creatinine Ratio 12.1; Bilirubin, Total 0.6 mg/dL (0.2-1.0); GFR African American 133 mL/min; GFR Non-African American 110 mL/min; Total Protein 6.5 g/dL (6.4-8.2)
[2018-08-14 13:47] LABS: Eosinophils % (manual) 27 (0-7); Lymphocytes % (manual) 24 (10.0-50.0); Monocytes % (manual) 2 (0-12)
[2018-08-14 16:51] LABS: Urine Bacteria NONE SEEN /hpf (None Seen); Urine Blood Negative /uL (Negative); Urine Hyaline Cast FEW /lpf (0 - 2); Urine Mucus FEW (None Seen); Urine Specific Gravity 1.011 (1.001-1.035); Urine WBC 1 /hpf (0 - 5)
[2018-08-14] MEDS ORDERED: AZITHROMYCIN 500MG/ 250ML 250 ML IV ONE (17:15)
[2018-08-14] MEDS ORDERED: MORPHINE SULFATE 4 MG/ML SYR/VIAL IV PRN (19:45)
[2018-08-14] MEDS ORDERED: MORPHINE SULF INJ 2 MG/ML SYRINGE 1ML IV PRN (19:45)
[2018-08-14] MEDS ORDERED: ACETAMINOPHEN 500 MG TAB PO PRN (19:45)
[2018-08-14] MEDS ORDERED: NITROGLYCERIN 0.4 MG SL TAB SL PRN (19:45)
[2018-08-14] MEDS ORDERED: ONDANSETRON HCL 4 MG/2 ML VIAL IV PRN (19:45)
[2018-08-14 19:51] VITALS: BP 110/76
--- NOTE | 2018-08-14 20:35 | NUR ---
Telemetry admit from ER DIMITRIOS WILLIAMSON admitted to Telemetry unit after hand off tool received. Patient oriented to primary RN, unit, room, bed, and unit policies regarding patient care and visiting hours. Patient now on continuous telemetry monitoring, tele box #[id number] and telemetry reading on arrival to unit is Sinus rhythm at 92. Patient placed on bedside oxygen, weighed by bedscale and encouraged to call if they need something. All questions and concerns addressed, patient verbalized understanding.
[2018-08-14] MEDS: cefTRIAXone 1GM/50ML D5W 50 ML IV SCH (21:07)
[2018-08-14] MEDS ORDERED: TRAZ100T2 PO (21:15)
[2018-08-14] MEDS ORDERED: FAM20T PO (21:15)
[2018-08-14] MEDS ORDERED: DONE5TAB31 PO (21:15)
[2018-08-14] MEDS ORDERED: PANT40TA2 PO (21:15)
[2018-08-14] MEDS ORDERED: FLUT1INH4 IN (21:15)
[2018-08-14] MEDS ORDERED: ALBUAER3 IN (21:15)
[2018-08-14 21:21] VITALS: BP 115/61
[2018-08-14] MEDS: IPRATROPIUM BROM 0.5 MG/2.5ML INH SOL NEB SCH (21:23)
[2018-08-14] MEDS: ALBUTEROL SULF 2.5 MG/0.5ML(0.5%) NEB SOLN NEB SCH (21:23)
[2018-08-14] MEDS: BUDESONIDE (INHALATION) 0.5 MG/2 ML NEB NEB SCH (21:23)
[2018-08-14 21:38] VITALS: BP 115/61
[2018-08-14] MEDS ORDERED: traZODone HCL 50 MG TAB PO SCH (22:00)
[2018-08-14] MEDS: methylPREDNISolone SOD SUCC 40 MG/ML VL IV SCH (22:09)
[2018-08-14] MEDS: MONTELUKAST SODIUM 10 MG TAB PO SCH (22:10)
[2018-08-15] MEDS: HYDROcodone-ACET 5/325MG TAB PO PRN (03:02)
[2018-08-15 04:32] VITALS: BP 126/74
[2018-08-15 05:40] LABS: Basophils # (auto) 0 uL; Basophils % (auto) 0.2 % (0.0-2.0); Eosinophils # (auto) 0 uL; Hematocrit 43.3 % (36.0-46.0); Hemoglobin 14.6 g/dL (12.2-16.2); Lymphocytes # (auto) 0.3 uL; Lymphocytes % (auto) 12.9 % (10.0-50.0); Mean Corpuscular Hemoglobin 33.6 pg (28.0-32.0); Mean Corpuscular Hgb Conc. 33.8 g/dL (32.0-36.0); Mean Corpuscular Volume 99.6 fL (80.0-100.0); Monocytes # (auto) 0 uL; Monocytes % (auto) 0.9 % (0.0-12.0); Neutrophils # (auto) 2.3 uL; Nucleated Red Blood Cells % 0.1 %; Platelet Count (auto) 234 10^3/uL (140-450); Red Blood Cells 4.35 10^6/uL (4.0-5.20); Red Cell Distribution Width 13.1 % (11.8-14.3); White Blood Cell 2.7 10^3/uL (4.4-10.8)
[2018-08-15 06:07] LABS: BUN/Creatinine Ratio 10.3; Calcium 9.1 mg/dL (8.5-10.1); Potassium 3.5 mmol/L (3.5-5.1)
[2018-08-15] MEDS: ALBUTEROL SULF 2.5 MG/0.5ML(0.5%) NEB SOLN NEB SCH ×4 (07:11→19:43)
[2018-08-15] MEDS: IPRATROPIUM BROM 0.5 MG/2.5ML INH SOL NEB SCH ×4 (07:11→19:43)
[2018-08-15 09:00] VITALS: BP 119/73
[2018-08-15] MEDS ORDERED: PANTOPRAZOLE 40 MG/10 ML VIAL IV SCH (10:00)
[2018-08-15] MEDS: BUDESONIDE (INHALATION) 0.5 MG/2 ML NEB NEB SCH ×2 (10:00→19:43)
[2018-08-15] MEDS: cefTRIAXone 1GM/50ML D5W 50 ML IV SCH (10:24)
[2018-08-15] MEDS: methylPREDNISolone SOD SUCC 40 MG/ML VL IV SCH ×2 (10:27→22:05)
[2018-08-15] MEDS: AZITHROMYCIN 500MG/ 250ML 250 ML IV SCH (11:21)
--- NOTE | 2018-08-15 11:44 | NUR ---
PT EKG SHOW HR OF 124. PT RESTING IN BED AND REPORTS SHE HAS BEEN COUGHING, BUT NO OTHER DISTRESS REPORTED. STAT EKG DONE. PT RUNNING SINUS TACH AT 108. RESPIRATORY CULTURE NEEDED, SAMPLE CUP AT BEDSIDE AND PT INSTRUCTED TO GIVE SAMPLE. CALLED DR. GUY TO REPORT HR 124. LEFT MESSAGE REPORTING PT HR 124 AND EKG DONE. AWAITING CALL BACK, WILL CONTINUE TO MONITOR.
[2018-08-15 13:00] VITALS: BP 120/65
--- NOTE | 2018-08-15 13:02 | NUR ---
CALLED JESSIE TO SPEAK WITH DR. LEONG. DR LEONG SEEING PATIENT TODAY. PBX REPORTS SHE WILL PAGE HIM, AWAITING CALL BACK TO REPORT PT HIGH HR 124 AND PT NEEDS VTE PROPHYLAXIS. Addendum: 08/15/18 at 1324 by JEN LAND RN WRONG PATIENT Addendum: 08/15/18 at 1327 by JEN LAND RN WRONG PATIENT.
--- NOTE | 2018-08-15 14:14 | NUR ---
DR GUY SAW PATIENT AND DISCUSSED POC. PT QUESTIONS AND CONCERNS ADDRESSED. MD AWARE PT HR WENT UP TO THE 130'S REPORTED BY DARRON. AWARE, NO NEW ORDERS, POSSIBLE DISCHARGE TOMORROW.
[2018-08-15 18:13] VITALS: BP 138/80
[2018-08-15] MEDS: ACETYLCYSTEINE 10 %(100MG/ML) SOL 4ML NEB SCH (19:43)
[2018-08-15 21:53] VITALS: BP 135/64
[2018-08-15] MEDS: MONTELUKAST SODIUM 10 MG TAB PO SCH (22:06)
[2018-08-15] MEDS: TEMAZEPAM 15 MG CAP PO PRN (22:06)
[2018-08-15] MEDS: FAMOTIDINE 20 MG TAB PO SCH (22:08)
[2018-08-16] MEDS: ALBUTEROL SULF 2.5 MG/0.5ML(0.5%) NEB SOLN NEB SCH ×4 (00:54→19:23)
[2018-08-16] MEDS: ACETYLCYSTEINE 10 %(100MG/ML) SOL 4ML NEB SCH ×4 (00:54→19:24)
[2018-08-16] MEDS: IPRATROPIUM BROM 0.5 MG/2.5ML INH SOL NEB SCH ×4 (00:54→19:23)
[2018-08-16 04:51] VITALS: BP 132/73
[2018-08-16] MEDS: methylPREDNISolone SOD SUCC 40 MG/ML VL IV SCH ×5 (05:00→23:38)
[2018-08-16] MEDS: BUDESONIDE (INHALATION) 0.5 MG/2 ML NEB NEB SCH ×2 (06:35→19:25)
[2018-08-16 09:00] VITALS: BP 126/69
[2018-08-16] MEDS: cefTRIAXone 1GM/50ML D5W 50 ML IV SCH (09:22)
[2018-08-16] MEDS: PANTOPRAZOLE 40 MG TAB PO SCH (09:22)
[2018-08-16] MEDS: AZITHROMYCIN 500MG/ 250ML 250 ML IV SCH (10:22)
--- NOTE | 2018-08-16 11:32 | NUR ---
rt paged for patient, requesting breathing treatment
[2018-08-16 13:00] VITALS: BP 115/72
[2018-08-16] MEDS: FAMOTIDINE 20 MG TAB PO SCH (17:52)
[2018-08-16 18:09] VITALS: BP 115/71
--- NOTE | 2018-08-16 19:23 | NUR ---
Respiratory note: PT HAD ALBUTEROL INHALER AT BEDSIDE. PT STATED SHE USED IT 30 MINS BEFORE ARRIVAL FOR MED NEB TX. ALBUTEROL HELD AT THIS TIME. WILL CONTINUE TO MONITOR.
--- NOTE | 2018-08-16 19:30 | NUR ---
Opening shift note Patient in bed alert and oriented x 3 with periods of forgetfulness. Patient's respiration even and unlabored, denies pain and discomfort at this time. Plan of care discussed, patient verbalized understanding. Spouse at bedside, all questions answered. All needs attended, will continue to monitor.
[2018-08-16] MEDS: MONTELUKAST SODIUM 10 MG TAB PO SCH (21:32)
[2018-08-16] MEDS: TEMAZEPAM 15 MG CAP PO PRN (21:32)
[2018-08-17] MEDS: ALBUTEROL SULF 2.5 MG/0.5ML(0.5%) NEB SOLN NEB SCH ×3 (00:21→13:18)
[2018-08-17] MEDS: IPRATROPIUM BROM 0.5 MG/2.5ML INH SOL NEB SCH ×3 (00:21→13:18)
[2018-08-17] MEDS: ACETYLCYSTEINE 10 %(100MG/ML) SOL 4ML NEB SCH ×3 (00:22→13:18)
[2018-08-17] MEDS: methylPREDNISolone SOD SUCC 40 MG/ML VL IV SCH ×2 (05:17→12:07)
[2018-08-17 05:55] LABS: Basophils # (auto) 0 uL; Eosinophils # (auto) 0 uL; Hematocrit 41.6 % (36.0-46.0); Hemoglobin 14.2 g/dL (12.2-16.2); Lymphocytes # (auto) 0.5 uL; Lymphocytes % (auto) 6.4 % (10.0-50.0); Mean Corpuscular Hgb Conc. 34.2 g/dL (32.0-36.0); Mean Corpuscular Volume 99.6 fL (80.0-100.0); Monocytes # (auto) 0.1 uL; Monocytes % (auto) 1.8 % (0.0-12.0); Neutrophils % (auto) 91.8 % (37.0-80.0); Platelet Count (auto) 242 10^3/uL (140-450); Red Blood Cells 4.17 10^6/uL (4.0-5.20); Red Cell Distribution Width 13.2 % (11.8-14.3); White Blood Cell 7.6 10^3/uL (4.4-10.8)
[2018-08-17 09:00] VITALS: BP 138/90
[2018-08-17] MEDS: cefTRIAXone 1GM/50ML D5W 50 ML IV SCH (10:10)
[2018-08-17] MEDS: PANTOPRAZOLE 40 MG TAB PO SCH (10:10)
[2018-08-17] MEDS: AZITHROMYCIN 500MG/ 250ML 250 ML IV SCH (10:10)
[2018-08-17] MEDS: BUDESONIDE (INHALATION) 0.5 MG/2 ML NEB NEB SCH (10:39)
[2018-08-17] MEDS: HYDROcodone-ACET 5/325MG TAB PO PRN ×2 (11:05→17:01)
[2018-08-17 13:00] VITALS: BP 134/79
[2018-08-17 16:21] VITALS: BP 137/79
--- NOTE | 2018-08-17 18:00 | NUR ---
Pt showing no change from initial assessment. Pt denies rectal bleeding since admission to room. No c/o pain or discomfort. V.S.S., resp even, unlabored. IV patent, site clear to right AC.
== END 2018-08-17 17:30 | disposition home or self-care (01) | DRG 190 ==
LOC: ER 11:31 → MERGE 19:49 → TELE 19:49 → TELE-WESTW 20:35
PROVIDERS: ADMIT Nurse Practitioner Acute Care; ATTEND Hospitalist
DX: J44.0 Chronic obstructive pulmonary disease with (acute) lower respiratory infection (principal); J80 Acute respiratory distress syndrome; J45.901 Unspecified asthma with (acute) exacerbation; E87.1 Hypo-osmolality and hyponatremia; J20.9 Acute bronchitis, unspecified; J44.1 Chronic obstructive pulmonary disease with (acute) exacerbation; K21.9 Gastro-esophageal reflux disease without esophagitis; Z80.0 Family history of malignant neoplasm of digestive organs; Z83.3 Family history of diabetes mellitus; Z81.1 Family history of alcohol abuse and dependence
CPT/HCPCS: 36415; 71045; 71046; 80048; 80053; 81001; 83735; 84443; 84484; 85007; 85025; 85027; 87070; 87205; 93005; 94640; 94644; 94761; 96361; 96365; 96375; C9113; G0378; J0696; J2405

== ENCOUNTER 2018-10-04 14:21 | Emergency (ER) | payer BC ==
[~2018-10-04] VITALS: Ht 160 cm; Wt 63.5 kg
[~2018-10-04 14:21] MED LIST changes: +DONE5TAB31 PO; +FAM20T PO; +FLUT1INH4 IN; -LEVO500T21 PO; +PANT40TA2 PO; -PRE5T GT; +TRAZ100T2 PO
[2018-10-04 14:30] VITALS: BP 136/67
[2018-10-04] MEDS ORDERED: ALBUTEROL SULF 2.5 MG/0.5ML(0.5%) NEB SOLN NEB ONE (15:15)
[2018-10-04] MEDS ORDERED: IPRATROPIUM BROM 0.5 MG/2.5ML INH SOL NEB ONE (15:15)
[2018-10-04] MEDS ORDERED: methylPREDNISolone SOD SUCC 125 MG/2 ML VL IM ONE (15:15)
[2018-10-04 15:20] LABS: Albumin 4.4 g/dL (3.4-5.0); Anion Gap 7 (5-15); Basophils # (auto) 0.1 uL; Basophils % (auto) 1.2 % (0.0-2.0); Blood Urea Nitrogen 11 mg/dL (7-18); Calcium 9.9 mg/dL (8.5-10.1); Carbon Dioxide 27 mmol/L (21-32); Chloride 103 mmol/L (98-107); Eosinophils # (auto) 0.2 uL; Eosinophils % (auto) 2.6 % (0.0-7.0); Glucose 106 mg/dL (74-106); Hematocrit 45.6 % (36.0-46.0); Hemoglobin 15.4 g/dL (12.2-16.2); Lymphocytes # (auto) 0.7 uL; Lymphocytes % (auto) 11.4 % (10.0-50.0); Magnesium 2.5 mg/dL (1.6-2.6); Mean Corpuscular Hemoglobin 33.9 pg (28.0-32.0); Mean Corpuscular Hgb Conc. 33.8 g/dL (32.0-36.0); Mean Corpuscular Volume 100.3 fL (80.0-100.0); Monocytes # (auto) 0.1 uL; Monocytes % (auto) 2.2 % (0.0-12.0); Neutrophils % (auto) 82.6 % (37.0-80.0); Nucleated Red Blood Cells % 0.1 %; Platelet Count (auto) 259 10^3/uL (140-450); Red Blood Cells 4.54 10^6/uL (4.0-5.20); Red Cell Distribution Width 14.1 % (11.8-14.3); Sodium 137 mmol/L (136-145)
[2018-10-04 15:26] LABS: Alanine Aminotransferase 19 U/L (13-56); Alkaline Phosphatase 72 U/L (45-117); Aspartate Aminotransferase 15 U/L (15-37); BUN/Creatinine Ratio 14.7; Bilirubin, Total 0.8 mg/dL (0.2-1.0); GFR African American 99 mL/min; GFR Non-African American 82 mL/min; Total Protein 7.5 g/dL (6.4-8.2)
[2018-10-04] MEDS ORDERED: cefTRIAXone SOD 1,000 MG VL IM ONE (15:30)
== END 2018-10-04 16:42 | disposition home or self-care (01) ==
LOC: ER 14:32
DX: J20.9 Acute bronchitis, unspecified (principal); J44.0 Chronic obstructive pulmonary disease with (acute) lower respiratory infection
CPT/HCPCS: 36415; 71046; 80053; 83735; 83880; 84484; 85025; 93005; 94644; 96372; 99285; J0696; J2930

== ENCOUNTER 2019-01-14 03:52 | Emergency (ER) | payer BC ==
[~2019-01-14] VITALS: Ht 160 cm; Wt 63.5 kg
[2019-01-14] MEDS ORDERED: ALBUTEROL SULF 2.5 MG/0.5ML(0.5%) NEB SOLN NEB ONE (04:00)
[2019-01-14] MEDS ORDERED: IPRATROPIUM BROM 0.5 MG/2.5ML INH SOL NEB ONE (04:00)
[2019-01-14 04:24] LABS: Basophils # (auto) 0.1 uL; Basophils % (auto) 0.9 % (0.0-2.0); Eosinophils # (auto) 0.1 uL; Eosinophils % (auto) 1.8 % (0.0-7.0); Hemoglobin 14.8 g/dL (12.2-16.2); Lymphocytes # (auto) 1.8 uL; Lymphocytes % (auto) 28.4 % (10.0-50.0); Mean Corpuscular Hemoglobin 35.1 pg (28.0-32.0); Mean Corpuscular Hgb Conc. 34.5 g/dL (32.0-36.0); Mean Corpuscular Volume 101.9 fL (80.0-100.0); Monocytes # (auto) 0.5 uL; Monocytes % (auto) 8.1 % (0.0-12.0); Neutrophils # (auto) 3.8 uL; Neutrophils % (auto) 60.8 % (37.0-80.0); Platelet Count (auto) 246 10^3/uL (140-450); Red Blood Cells 4.22 10^6/uL (4.0-5.20); Red Cell Distribution Width 12.7 % (11.8-14.3); White Blood Cell 6.2 10^3/uL (4.4-10.8)
[2019-01-14 04:42] LABS: Albumin 3.8 g/dL (3.4-5.0); Anion Gap 6 (5-15); Blood Urea Nitrogen 17 mg/dL (7-18); Calcium 10.3 mg/dL (8.5-10.1); Carbon Dioxide 30 mmol/L (21-32); Chloride 104 mmol/L (98-107); Glucose 115 mg/dL (74-106); Magnesium 2.4 mg/dL (1.6-2.6); Potassium 4.2 mmol/L (3.5-5.1); Sodium 140 mmol/L (136-145)
[2019-01-14 04:47] LABS: INR < 0.93 (0.9-1.15); Partial Thromboplastin Time 24.3 sec (23.64-32.05)
[2019-01-14 04:48] LABS: Alanine Aminotransferase 19 U/L (13-56); Alkaline Phosphatase 57 U/L (45-117); Aspartate Aminotransferase 13 U/L (15-37); Bilirubin, Total 0.5 mg/dL (0.2-1.0); GFR African American 91 mL/min; GFR Non-African American 75 mL/min; Total Protein 6.9 g/dL (6.4-8.2)
[2019-01-14] MEDS ORDERED: FAMOTIDINE (10MG/ML) 2ML VL IV ONE (05:45)
[2019-01-14 06:29] VITALS: BP 127/57
== END 2019-01-14 07:36 | disposition home or self-care (01) ==
LOC: ER 03:56
DX: K21.0 Gastro-esophageal reflux disease with esophagitis (principal); F41.9 Anxiety disorder, unspecified; J44.9 Chronic obstructive pulmonary disease, unspecified; Z79.899 Other long term (current) drug therapy; Z88.2 Allergy status to sulfonamides
CPT/HCPCS: 36415; 71045; 80053; 83735; 83880; 84484; 85025; 85379; 85610; 85730; 93005; 94640; 96374; 99284; J3490; J7611; J7644

== ENCOUNTER 2019-04-06 10:06 | Emergency (ER) | payer BC ==
[~2019-04-06] VITALS: Ht 160 cm; Wt 63.5 kg
[2019-04-06 10:28] VITALS: BP 139/73
[2019-04-06] MEDS ORDERED: ALBUTEROL SULF 2.5 MG/0.5ML(0.5%) NEB SOLN ONE (12:20)
[2019-04-06] MEDS ORDERED: IPRATROPIUM BROM 0.5 MG/2.5ML INH SOL ONE (12:21)
[2019-04-06] MEDS ORDERED: diphenhdrAMINE HCL 50 MG/1 ML VL IM ONE (12:30)
[2019-04-06] MEDS ORDERED: DexAMETHasone SOD PHOS 10MG/1ML VIAL INJ IM ONE (12:30)
[2019-04-06] MEDS ORDERED: ALBUTEROL SULF 2.5 MG/0.5ML(0.5%) NEB SOLN NEB ONE (12:30)
[2019-04-06] MEDS ORDERED: IPRATROPIUM BROM 0.5 MG/2.5ML INH SOL NEB ONE (12:30)
== END 2019-04-06 13:10 | disposition home or self-care (01) ==
LOC: ER 10:06
DX: R20.2 Paresthesia of skin (principal); T63.461A Toxic effect of venom of wasps, accidental (unintentional), initial encounter; J44.9 Chronic obstructive pulmonary disease, unspecified; Z88.8 Allergy status to other drugs, medicaments and biological substances; Z79.899 Other long term (current) drug therapy; Y92.89 Other specified places as the place of occurrence of the external cause
CPT/HCPCS: 94640; 96372; 99283; J1100; J1200; J7611; J7644

== ENCOUNTER 2019-04-27 10:07 | Inpatient (IN) | payer BC ==
[~2019-04-27] VITALS: Ht 160 cm; Wt 67.8 kg
[2019-04-27 10:29] LABS: Basophils # (auto) 0.1 uL; Eosinophils # (auto) 0.3 uL; Lymphocytes # (auto) 0.5 uL; Mean Corpuscular Hemoglobin 34.9 pg (28.0-32.0); Mean Corpuscular Hgb Conc. 34.2 g/dL (32.0-36.0); Monocytes # (auto) 0.1 uL; Neutrophils # (auto) 3.9 uL; Red Cell Distribution Width 12.8 % (11.8-14.3)
[2019-04-27 10:30] LABS: Basophils % (auto) 1.3 % (0.0-2.0); Eosinophils % (auto) 6.5 % (0.0-7.0); Hematocrit 41.6 % (36.0-46.0); Hemoglobin 14.2 g/dL (12.2-16.2); Lymphocytes % (auto) 10.7 % (10.0-50.0); Monocytes % (auto) 2.4 % (0.0-12.0); Neutrophils % (auto) 79.1 % (37.0-80.0); Nucleated Red Blood Cells % 0.1 %; Platelet Count (auto) 205 10^3/uL (140-450); Red Blood Cells 4.08 10^6/uL (4.0-5.20); White Blood Cell 4.9 10^3/uL (4.4-10.8)
[2019-04-27] MEDS ORDERED: IPRATROPIUM BROM 0.5 MG/2.5ML INH SOL NEB ONE (10:45)
[2019-04-27] MEDS ORDERED: ALBUTEROL SULF 2.5 MG/0.5ML(0.5%) NEB SOLN NEB ONE (10:45)
[2019-04-27] MEDS ORDERED: methylPREDNISolone SOD SUCC 125 MG/2 ML VL IV ONE (10:45)
[2019-04-27 10:48] LABS: Alanine Aminotransferase 15 U/L (13-56); Albumin 3.7 g/dL (3.4-5.0); Anion Gap 7 (5-15); Aspartate Aminotransferase 13 U/L (15-37); BUN/Creatinine Ratio 11.4; Blood Urea Nitrogen 10 mg/dL (7-18); Calcium 8.9 mg/dL (8.5-10.1); Carbon Dioxide 28 mmol/L (21-32); Chloride 102 mmol/L (98-107); GFR African American 82 mL/min; GFR Non-African American 68 mL/min; Glucose 101 mg/dL (74-106); Potassium 3.6 mmol/L (3.5-5.1); Sodium 137 mmol/L (136-145)
[2019-04-27 10:55] LABS: Alkaline Phosphatase 61 U/L (45-117); Bilirubin, Total 0.6 mg/dL (0.2-1.0); Total Protein 6.8 g/dL (6.4-8.2)
[2019-04-27 12:32] LABS: Urine WBC None Seen /hpf (0 - 5)
[2019-04-27 12:37] LABS: Urine Bacteria FEW /hpf (None Seen); Urine Blood Negative /uL (Negative)
[2019-04-27] MEDS ORDERED: ACETAMINOPHEN 500 MG TAB PO PRN (13:15)
[2019-04-27] MEDS ORDERED: ONDANSETRON HCL 4 MG/2 ML VIAL IV PRN (13:15)
[2019-04-27] MEDS ORDERED: SODIUM CHLORIDE 0.9% 1,000 ML IV ONE (13:15)
[2019-04-27] MEDS ORDERED: NITROGLYCERIN 0.4 MG SL TAB SL PRN (13:15)
[2019-04-27] MEDS ORDERED: HYDROcodone-ACET 5/325MG TAB PO PRN (13:15)
[2019-04-27] MEDS ORDERED: MORPHINE SULF INJ 2 MG/ML SYRINGE 1ML IV PRN ×2 (13:15)
[2019-04-27] MEDS: IPRATROPIUM BROM 0.5 MG/2.5ML INH SOL NEB SCH ×2 (13:40→22:35)
[2019-04-27] MEDS: ALBUTEROL SULF 2.5 MG/0.5ML(0.5%) NEB SOLN NEB SCH ×2 (13:40→22:35)
[2019-04-27 14:00] VITALS: BP 126/74
--- NOTE | 2019-04-27 14:40 | NUR ---
MS admit from ER DIMITRIOS WILLIAMSON admitted to tele/MS after SBAR received. Patient oriented to Cirilo Green, primary RN, unit, room, bed, and unit policies regarding patient care and visiting hours. Patient weighed by bedscale and encouraged to call if they need something. All questions and concerns addressed, patient verbalized understanding. Note: currently on room air. no signs of SOB or distress.
[2019-04-27 14:59] VITALS: BP 126/74
[2019-04-27] MEDS ORDERED: MELA3TAB27 PO (15:11)
[2019-04-27] MEDS ORDERED: EPIN0.1I11 IJ (15:11)
[2019-04-27 15:46] VITALS: BP 129/72
[2019-04-27 17:00] VITALS: BP 129/64
--- NOTE | 2019-04-27 19:30 | NUR ---
Opening Shift Note Assumed care of patient, awake and alert x4. Visitors noted at the bedside. Patient denies pain at this time. No signs/symptoms of distress or shortness of breath noted at this time. Instructed on plan of care and to call for assistance as needed. Bed is locked in lowest position, side rails x 2 are up, call light is within reach, and bed alarm is on.
--- NOTE | 2019-04-27 19:54 | NUR ---
HOSPITALIST PAGED RE: SLEEPING AIDE AND HEART BURN MEDICATION Hospitalist paged regarding sleeping medication and heart burn medication. Patient states she takes trazodone 100mg at bedtime to help her sleep and famotidine 40mg at bedtime for heart burn. Patient also reports she takes omeprazole daily. Patient is requesting to resume home medications. Awaiting call back.
--- NOTE | 2019-04-27 19:58 | NUR ---
HOSPITALIST RETURNED CALL RE: HOME MEDICATIONS LETI Son returned call regarding home medications. Notified LETI Son, that patient states she takes trazodone 100mg PO at bedtime and famotidine 40 mg PO at bedtime to help her sleep and for heart burn and that patient is requesting to resume these medications. Received order from LETI Son to resume home medication Trazaone 100mg PO and Famotidine 40mg PO tonight. Order from LETI Son to discontinue scheduled 10:00 famotidine and start Protonix 40mg PO daily received. Orders read back and verified. Will carry out orders as received.
[2019-04-27] MEDS: methylPREDNISolone SOD SUCC 125 MG/2 ML VL IV SCH (20:53)
[2019-04-27] MEDS: traZODone HCL 50 MG TAB PO SCH (20:53)
[2019-04-27] MEDS ORDERED: FAMOTIDINE 20 MG TAB PO ONE (21:00)
[2019-04-27 21:59] VITALS: BP 140/76
[2019-04-28] MEDS: IPRATROPIUM BROM 0.5 MG/2.5ML INH SOL NEB SCH ×5 (04:40→22:36)
[2019-04-28] MEDS: ALBUTEROL SULF 2.5 MG/0.5ML(0.5%) NEB SOLN NEB SCH ×5 (04:40→22:36)
[2019-04-28 05:03] VITALS: BP 136/65
--- NOTE | 2019-04-28 05:04 | NUR ---
HOSPITALIST PAGED RE: PRN BREATHING TREATMENTS Hospitalist paged regarding as needed breathing treatments. Patient is here for COPD exacerbation and has no PRN breathing treatments ordered. Patient is wheezing upon expiration and SPO2: is 92% on 1L NC. Awaiting call back.
[2019-04-28] MEDS ORDERED: ALBUTEROL SULF 2.5 MG/0.5ML(0.5%) NEB SOLN NEB ONE (06:15)
--- NOTE | 2019-04-28 06:18 | NUR ---
HOSPITALIST RETURNED CALL RE: BREATHING TREATMENT Hospitalist returned call regarding breathing treatment. Orders received for albuterol 2.5mg x1. Order read back and verified. Will carry out order as received.
[2019-04-28 08:57] VITALS: BP 131/60
[2019-04-28] MEDS: methylPREDNISolone SOD SUCC 125 MG/2 ML VL IV SCH ×2 (09:15→21:38)
[2019-04-28] MEDS ORDERED: FAMOTIDINE 20 MG TAB PO SCH (10:00)
[2019-04-28] MEDS ORDERED: PANTOPRAZOLE 40 MG TAB PO SCH (10:00)
[2019-04-28 14:07] VITALS: BP 122/71
[2019-04-28 17:01] VITALS: BP 126/75
[2019-04-28] MEDS: traZODone HCL 50 MG TAB PO SCH (21:38)
[2019-04-28] MEDS: FAMOTIDINE 20 MG TAB PO SCH (21:38)
[2019-04-28 21:58] VITALS: BP 131/60
[2019-04-29 04:58] VITALS: BP 125/55
[2019-04-29 06:05] LABS: Basophils # (auto) 0 uL; Eosinophils # (auto) 0 uL; Hematocrit 41.7 % (36.0-46.0); Mean Corpuscular Hemoglobin 35.1 pg (28.0-32.0); Monocytes # (auto) 0.2 uL
[2019-04-29 06:09] LABS: Hemoglobin 14.3 g/dL (12.2-16.2); Lymphocytes # (auto) 0.6 uL; Lymphocytes % (auto) 6.2 % (10.0-50.0); Mean Corpuscular Hgb Conc. 34.3 g/dL (32.0-36.0); Mean Corpuscular Volume 102.4 fL (80.0-100.0); Monocytes % (auto) 1.9 % (0.0-12.0); Neutrophils # (auto) 8.5 uL; Neutrophils % (auto) 91.9 % (37.0-80.0); Platelet Count (auto) 210 10^3/uL (140-450); Red Blood Cells 4.08 10^6/uL (4.0-5.20); Red Cell Distribution Width 13.1 % (11.8-14.3); White Blood Cell 9.3 10^3/uL (4.4-10.8)
[2019-04-29] MEDS: ALBUTEROL SULF 2.5 MG/0.5ML(0.5%) NEB SOLN NEB SCH ×2 (06:24→10:53)
[2019-04-29] MEDS: IPRATROPIUM BROM 0.5 MG/2.5ML INH SOL NEB SCH ×2 (06:24→10:53)
[2019-04-29 06:42] LABS: BUN/Creatinine Ratio 18.9; Calcium 9.2 mg/dL (8.5-10.1); Magnesium 2.5 mg/dL (1.6-2.6); Potassium 4.1 mmol/L (3.5-5.1)
[2019-04-29 09:00] VITALS: BP 100/57
[2019-04-29] MEDS: methylPREDNISolone SOD SUCC 125 MG/2 ML VL IV SCH (09:11)
[2019-04-29] MEDS: FAMOTIDINE 20 MG TAB PO SCH (09:12)
--- NOTE | 2019-04-29 10:40 | NUR ---
AMBULATED PATIENT OUTSIDE ROOM , O2 SAT BETWEEN 92-96% ON ROOM AIR, NO SOB NOTED DURING AMBULATION.
--- NOTE | 2019-04-29 11:22 | NUR ---
discharge instructions given to patient with patient next to her. verbalized understanding, questions answered. IV access removed.
--- NOTE | 2019-04-29 11:27 | NUR ---
patient left accompanied by monogram and letter paster via wheelchair. with all belonging accounted for.
== END 2019-04-29 11:25 | disposition home or self-care (01) | DRG 189 ==
LOC: ER 10:07 → OVERFLOW 10:08 → WEST WING 14:44
PROVIDERS: ADMIT Nurse Practitioner Acute Care; ATTEND Internal Medicine
DX: J96.00 Acute respiratory failure, unspecified whether with hypoxia or hypercapnia (principal); J44.1 Chronic obstructive pulmonary disease with (acute) exacerbation; D64.9 Anemia, unspecified; F41.9 Anxiety disorder, unspecified; J84.10 Pulmonary fibrosis, unspecified; F32.9 Major depressive disorder, single episode, unspecified; K21.9 Gastro-esophageal reflux disease without esophagitis; Z79.51 Long term (current) use of inhaled steroids; Z80.0 Family history of malignant neoplasm of digestive organs; Z83.3 Family history of diabetes mellitus; Z88.2 Allergy status to sulfonamides
CPT/HCPCS: 36415; 71045; 80048; 80053; 81001; 83735; 83880; 84484; 85025; 94640; 96361; 96374; G0378; J2405

== ENCOUNTER 2019-09-01 16:28 | Emergency (ER) | payer BC ==
[~2019-09-01] VITALS: Ht 160 cm; Wt 63.5 kg
[~2019-09-01 16:28] MED LIST changes: -DONE5TAB31 PO; +EPIN0.1I11 IJ; -FAM20T PO; +FOLI1TAB6 PO; +LEVO500T21 PO; +MELA3TAB27 PO; +OMEP20TA PO; -PANT40TA2 PO; +PRED20TA2 PO; +SUCR1TAB PO; -TRAZ100T2 PO; +TRAZ100T3 PO
[2019-09-01 19:00] VITALS: BP 127/73
[2019-09-01] MEDS ORDERED: IPRATROPIUM BROM 0.5 MG/2.5ML INH SOL NEB ONE (19:45)
[2019-09-01] MEDS ORDERED: methylPREDNISolone SOD SUCC 125 MG/2 ML VL IM ONE (19:45)
[2019-09-01] MEDS ORDERED: ALBUTEROL SULF 2.5 MG/0.5ML(0.5%) NEB SOLN NEB ONE (19:45)
== END 2019-09-01 20:35 | disposition home or self-care (01) ==
LOC: ER 16:28
DX: J45.901 Unspecified asthma with (acute) exacerbation (principal); J44.9 Chronic obstructive pulmonary disease, unspecified
CPT/HCPCS: 71046; 94640; 96372; 99283; J2930; J7644

== ENCOUNTER 2019-10-14 11:21 | Emergency (ER) | payer BC ==
[~2019-10-14] VITALS: Ht 160 cm; Wt 56.7 kg
[2019-10-14 13:28] VITALS: BP 92/50
[2019-10-14] MEDS ORDERED: ACETAMINOPHEN/CODEINE#3 (300/30mg) TAB PO ONE (13:30)
== END 2019-10-14 14:30 | disposition home or self-care (01) ==
LOC: ER 11:21
DX: M54.41 Lumbago with sciatica, right side (principal); M79.604 Pain in right leg; J44.9 Chronic obstructive pulmonary disease, unspecified; Z88.2 Allergy status to sulfonamides; Z79.2 Long term (current) use of antibiotics; Z79.899 Other long term (current) drug therapy

== ENCOUNTER 2019-11-10 06:15 | Emergency (ER) | payer BC ==
[~2019-11-10] VITALS: Ht 160 cm; Wt 72.1 kg
[2019-11-10] MEDS ORDERED: ALBUTEROL SULF 2.5 MG/0.5ML(0.5%) NEB SOLN NEB STA (06:35)
[2019-11-10] MEDS ORDERED: IPRATROPIUM BROM 0.5 MG/2.5ML INH SOL NEB ONE (06:45)
[2019-11-10 07:27] LABS: Basophils # (auto) 0.1 10 ^3/uL (0-0.2); Basophils % (auto) 1.9 % (0.0-2.0); Eosinophils # (auto) 0.7 10 ^3/uL (0-0.8); Eosinophils % (auto) 12.2 % (0.0-7.0); Hematocrit 38.5 % (36.0-46.0); Hemoglobin 12.8 g/dL (12.2-16.2); Lymphocytes # (auto) 1.3 10 ^3/uL (0.4-5.4); Lymphocytes % (auto) 22.5 % (10.0-50.0); Mean Corpuscular Hemoglobin 33.4 pg (28.0-32.0); Mean Corpuscular Hgb Conc. 33.3 g/dL (32.0-36.0); Mean Corpuscular Volume 100.1 fL (80.0-100.0); Monocytes # (auto) 0.4 10 ^3/uL (0-1.3); Monocytes % (auto) 7.8 % (0.0-12.0); Neutrophils # (auto) 3.1 10 ^3/uL (1.6-8.6); Neutrophils % (auto) 55.6 % (37.0-80.0); Nucleated Red Blood Cells % 0.1 %; Platelet Count (auto) 294 10^3/uL (140-450); Red Blood Cells 3.84 10^6/uL (4.0-5.20); Red Cell Distribution Width 13.2 % (11.8-14.3); White Blood Cell 5.6 10^3/uL (4.4-10.8)
[2019-11-10] MEDS ORDERED: methylPREDNISolone SOD SUCC 125 MG/2 ML VL ONE (07:36)
[2019-11-10 07:43] LABS: Albumin 3.4 g/dL (3.4-5.0); Anion Gap 5 (5-15); Blood Urea Nitrogen 14 mg/dL (7-18); Carbon Dioxide 30 mmol/L (21-32); Chloride 102 mmol/L (98-107); Glucose 100 mg/dL (74-106); Potassium 3.5 mmol/L (3.5-5.1); Sodium 137 mmol/L (136-145)
[2019-11-10] MEDS ORDERED: methylPREDNISolone SOD SUCC 125 MG/2 ML VL IV ONE (07:45)
[2019-11-10 07:59] LABS: Alanine Aminotransferase 36 U/L (13-56); Alkaline Phosphatase 43 U/L (45-117); Aspartate Aminotransferase 23 U/L (15-37); BUN/Creatinine Ratio 19.2; Bilirubin, Total 0.5 mg/dL (0.2-1.0); GFR African American 102 mL/min; GFR Non-African American 84 mL/min; Total Protein 6.2 g/dL (6.4-8.2)
[2019-11-10] MEDS ORDERED: ALBUTEROL SULF 2.5 MG/0.5ML(0.5%) NEB SOLN NEB ONE (08:00)
[2019-11-10] MEDS ORDERED: LORazepam 2MG/ML-1ML VIAL ONE (10:16)
[2019-11-10] MEDS ORDERED: LORazepam 2MG/ML-1ML VIAL IV ONE (10:30)
[2019-11-10 11:10] VITALS: BP 126/60
== END 2019-11-10 11:46 | disposition home or self-care (01) ==
LOC: ER 06:15
DX: J45.901 Unspecified asthma with (acute) exacerbation (principal)
CPT/HCPCS: 36415; 71045; 80053; 83735; 83880; 84484; 85025; 93005; 94640; 96374; 96375; 99285; J2060; J2930; J7644

== ENCOUNTER 2019-12-01 11:07 | Inpatient (IN) | payer BC ==
[~2019-12-01] VITALS: Ht 167.6 cm; Wt 80.0 kg
[2019-12-01] MEDS ORDERED: methylPREDNISolone SOD SUCC 125 MG/2 ML VL IV ONE ×2 (11:30→13:45)
[2019-12-01] MEDS ORDERED: ALBUTEROL SULF 2.5 MG/0.5ML(0.5%) NEB SOLN HHN ONE (11:30)
[2019-12-01 12:12] LABS: Basophils # (auto) 0.1 10 ^3/uL (0-0.2); Basophils % (auto) 1.6 % (0.0-2.0); Eosinophils # (auto) 0.7 10 ^3/uL (0-0.8); Eosinophils % (auto) 9.5 % (0.0-7.0); Hematocrit 41.4 % (36.0-46.0); Hemoglobin 13.8 g/dL (12.2-16.2); Lymphocytes # (auto) 2.6 10 ^3/uL (0.4-5.4); Lymphocytes % (auto) 34.9 % (10.0-50.0); Mean Corpuscular Hemoglobin 33.5 pg (28.0-32.0); Mean Corpuscular Hgb Conc. 33.2 g/dL (32.0-36.0); Mean Corpuscular Volume 100.9 fL (80.0-100.0); Monocytes # (auto) 0.6 10 ^3/uL (0-1.3); Monocytes % (auto) 7.4 % (0.0-12.0); Neutrophils # (auto) 3.5 10 ^3/uL (1.6-8.6); Neutrophils % (auto) 46.6 % (37.0-80.0); Nucleated Red Blood Cells % 0.1 %; Platelet Count (auto) 240 10^3/uL (140-450); Red Blood Cells 4.11 10^6/uL (4.0-5.20); Red Cell Distribution Width 13.5 % (11.8-14.3); White Blood Cell 7.5 10^3/uL (4.4-10.8)
[2019-12-01 12:31] LABS: Albumin 3.9 g/dL (3.4-5.0); BUN/Creatinine Ratio 20.7; Calcium 8.8 mg/dL (8.5-10.1); Potassium 3.8 mmol/L (3.5-5.1)
[2019-12-01 12:34] LABS: Bilirubin, Total 0.5 mg/dL (0.2-1.0); Total Protein 6.9 g/dL (6.4-8.2)
[2019-12-01] MEDS ORDERED: HYDROcodone-ACET 5/325MG TAB PO PRN (13:15)
[2019-12-01] MEDS ORDERED: NITROGLYCERIN 0.4 MG SL TAB SL PRN (13:15)
[2019-12-01] MEDS ORDERED: ACETAMINOPHEN 500 MG TAB PO PRN (13:15)
[2019-12-01] MEDS ORDERED: ONDANSETRON HCL 4 MG/2 ML VIAL IV PRN (13:15)
[2019-12-01] MEDS ORDERED: MORPHINE SULF INJ 2 MG/ML SYRINGE 1ML IV PRN ×2 (13:15)
[2019-12-01] MEDS ORDERED: FAMOTIDINE 20 MG TAB PO ONE (13:45)
[2019-12-01] MEDS: SODIUM CHLORIDE 0.9% 1,000 ML IV SCH (13:56)
[2019-12-01] MEDS: ALBUTEROL SULF 2.5 MG/0.5ML(0.5%) NEB SOLN NEB SCH ×3 (14:17→23:30)
[2019-12-01] MEDS: IPRATROPIUM BROM 0.5 MG/2.5ML INH SOL NEB SCH ×3 (14:17→23:30)
[2019-12-01 15:07] VITALS: BP 125/69
[2019-12-01] MEDS: BUDESONIDE (INHALATION) 0.5 MG/2 ML NEB NEB SCH (18:57)
[2019-12-01] MEDS: MONTELUKAST SODIUM 10 MG TAB PO SCH (22:37)
[2019-12-01] MEDS: methylPREDNISolone SOD SUCC 125 MG/2 ML VL IV SCH (22:37)
[2019-12-02] MEDS: SODIUM CHLORIDE 0.9% 1,000 ML IV SCH ×2 (02:36→16:55)
[2019-12-02] MEDS ORDERED: IPRATROPIUM BROM 0.5 MG/2.5ML INH SOL NEB PRN (02:45)
[2019-12-02] MEDS ORDERED: ALBUTEROL SULF 2.5 MG/0.5ML(0.5%) NEB SOLN NEB PRN (02:45)
[2019-12-02] MEDS: IPRATROPIUM BROM 0.5 MG/2.5ML INH SOL NEB SCH ×5 (05:33→21:10)
[2019-12-02] MEDS: ALBUTEROL SULF 2.5 MG/0.5ML(0.5%) NEB SOLN NEB SCH ×5 (05:33→21:10)
[2019-12-02 06:01] LABS: Calcium 8.7 mg/dL (8.5-10.1); Potassium 3.3 mmol/L (3.5-5.1)
[2019-12-02 06:03] LABS: BUN/Creatinine Ratio 26.4
[2019-12-02] MEDS: BUDESONIDE (INHALATION) 0.5 MG/2 ML NEB NEB SCH ×2 (10:07→21:10)
[2019-12-02] MEDS: methylPREDNISolone SOD SUCC 125 MG/2 ML VL IV SCH ×2 (11:06→21:24)
[2019-12-02] MEDS: FAMOTIDINE 20 MG TAB PO SCH (11:06)
[2019-12-02] MEDS ORDERED: TIZA2TAB3 PO (15:14)
[2019-12-02] MEDS ORDERED: BUSP5TAB78 PO (15:14)
[2019-12-02] MEDS ORDERED: GABA300C10 PO (15:14)
[2019-12-02 17:30] VITALS: BP 147/66
[2019-12-02] MEDS: MONTELUKAST SODIUM 10 MG TAB PO SCH (21:24)
[2019-12-02 21:48] VITALS: BP 130/81
[2019-12-03] MEDS: SODIUM CHLORIDE 0.9% 1,000 ML IV SCH (03:27)
[2019-12-03 05:01] VITALS: BP 154/89
[2019-12-03 05:35] LABS: Basophils # (auto) 0 10 ^3/uL (0-0.2); Basophils % (auto) 0.1 % (0.0-2.0); Eosinophils # (auto) 0 10 ^3/uL (0-0.8); Hematocrit 37.9 % (36.0-46.0); Hemoglobin 12.8 g/dL (12.2-16.2); Lymphocytes # (auto) 0.4 10 ^3/uL (0.4-5.4); Mean Corpuscular Hemoglobin 33.9 pg (28.0-32.0); Mean Corpuscular Hgb Conc. 33.9 g/dL (32.0-36.0); Mean Corpuscular Volume 100.1 fL (80.0-100.0); Monocytes # (auto) 0.3 10 ^3/uL (0-1.3); Monocytes % (auto) 3.2 % (0.0-12.0); Neutrophils # (auto) 7.7 10 ^3/uL (1.6-8.6); Neutrophils % (auto) 91.7 % (37.0-80.0); Platelet Count (auto) 243 10^3/uL (140-450); Red Blood Cells 3.79 10^6/uL (4.0-5.20); Red Cell Distribution Width 13.5 % (11.8-14.3); White Blood Cell 8.4 10^3/uL (4.4-10.8)
[2019-12-03 05:56] LABS: Potassium 3.7 mmol/L (3.5-5.1)
[2019-12-03 06:10] LABS: BUN/Creatinine Ratio 28.9; Magnesium 2.8 mg/dL (1.6-2.6)
[2019-12-03] MEDS: IPRATROPIUM BROM 0.5 MG/2.5ML INH SOL NEB SCH ×3 (06:54→14:08)
[2019-12-03] MEDS: ALBUTEROL SULF 2.5 MG/0.5ML(0.5%) NEB SOLN NEB SCH ×3 (06:54→14:08)
[2019-12-03] MEDS: BUDESONIDE (INHALATION) 0.5 MG/2 ML NEB NEB SCH (06:56)
[2019-12-03 08:00] VITALS: BP 142/78
[2019-12-03 09:23] VITALS: BP 142/78
[2019-12-03] MEDS: FAMOTIDINE 20 MG TAB PO SCH (11:36)
[2019-12-03] MEDS: methylPREDNISolone SOD SUCC 125 MG/2 ML VL IV SCH (11:36)
[2019-12-03 12:53] VITALS: BP 144/65
[2019-12-03 17:19] VITALS: BP 132/80
[2019-12-03] MEDS ORDERED: methylPREDNISolone SOD SUCC 40 MG/ML VL IV SCH (22:00)
== END 2019-12-03 16:25 | disposition home or self-care (01) | DRG 202 ==
LOC: ER 11:07 → TELE 11:08 → TELE-WESTW 12-02 17:06
PROVIDERS: ADMIT Nurse Practitioner Acute Care; ATTEND Internal Medicine
DX: J45.42 Moderate persistent asthma with status asthmaticus (principal); J96.21 Acute and chronic respiratory failure with hypoxia; J44.1 Chronic obstructive pulmonary disease with (acute) exacerbation; F41.9 Anxiety disorder, unspecified; K21.9 Gastro-esophageal reflux disease without esophagitis; F32.9 Major depressive disorder, single episode, unspecified; Z79.899 Other long term (current) drug therapy; Z81.1 Family history of alcohol abuse and dependence; Z80.8 Family history of malignant neoplasm of other organs or systems; Z83.3 Family history of diabetes mellitus; Z88.2 Allergy status to sulfonamides; Z79.51 Long term (current) use of inhaled steroids; Z20.828 Contact with and (suspected) exposure to other viral communicable diseases
CPT/HCPCS: 36415; 71045; 71046; 80048; 80053; 83735; 85025; 93005; 94640; 96374; G0378

== ENCOUNTER 2020-06-20 08:50 | Emergency (ER) | payer BC ==
[~2020-06-20] VITALS: Ht 160 cm; Wt 54.4 kg
[~2020-06-20 08:50] MED LIST changes: +BUSP5TAB78 PO; +GABA300C10 PO; -LEVO500T21 PO; -PRED20TA2 PO; +TIZA2TAB3 PO
[2020-06-20 09:04] VITALS: BP 106/48
[2020-06-20] MEDS ORDERED: IPRATROPIUM BROM 0.5 MG/2.5ML INH SOL NEB ONE (09:15)
[2020-06-20] MEDS ORDERED: ALBUTEROL SULF 2.5 MG/0.5ML(0.5%) NEB SOLN NEB ONE (09:15)
[2020-06-20] MEDS ORDERED: methylPREDNISolone SOD SUCC 125 MG/2 ML VL IM ONE (09:30)
== END 2020-06-20 12:28 | disposition home or self-care (01) ==
LOC: ER 08:50
DX: J45.901 Unspecified asthma with (acute) exacerbation (principal); F32.9 Major depressive disorder, single episode, unspecified
CPT/HCPCS: 71046; 94640; 96372; 99283; J2930; J7644

== ENCOUNTER 2020-07-12 14:41 | Emergency (ER) | payer BC, OTHER ==
[~2020-07-12] VITALS: Ht 160 cm; Wt 54.4 kg
[2020-07-12] MEDS ORDERED: methylPREDNISolone SOD SUCC 125 MG/2 ML VL IV ONE (15:15)
[2020-07-12] MEDS ORDERED: methylPREDNISolone SOD SUCC 125 MG/2 ML VL IM ONE (15:30)
[2020-07-12 15:46] LABS: Eosinophils # (auto) 0.4 10 ^3/uL (0-0.8); Lymphocytes # (auto) 0.9 10 ^3/uL (0.4-5.4); Monocytes # (auto) 0.3 10 ^3/uL (0-1.3); Nucleated Red Blood Cells % 0.1 %; Platelet Count (auto) 193 10^3/uL (140-450); White Blood Cell 3.1 10^3/uL (4.4-10.8)
[2020-07-12 15:51] LABS: Basophils # (auto) 0.1 10 ^3/uL (0-0.2); Basophils % (auto) 2.2 % (0.0-2.0); Eosinophils % (auto) 13.4 % (0.0-7.0); Hematocrit 36.6 % (36.0-46.0); Hemoglobin 13.2 g/dL (12.2-16.2); Lymphocytes % (auto) 28.7 % (10.0-50.0); Mean Corpuscular Hemoglobin 34.9 pg (28.0-32.0); Mean Corpuscular Hgb Conc. 36.1 g/dL (32.0-36.0); Mean Corpuscular Volume 96.7 fL (80.0-100.0); Monocytes % (auto) 10.1 % (0.0-12.0); Neutrophils # (auto) 1.4 10 ^3/uL (1.6-8.6); Neutrophils % (auto) 45.6 % (37.0-80.0); Red Blood Cells 3.79 10^6/uL (4.0-5.20); Red Cell Distribution Width 13.8 % (11.8-14.3)
[2020-07-12 16:00] LABS: Albumin 3.5 g/dL (3.4-5.0); Anion Gap 7 (5-15); Blood Urea Nitrogen 5 mg/dL (7-18); Calcium 8.1 mg/dL (8.5-10.1); Carbon Dioxide 27 mmol/L (21-32); Chloride 91 mmol/L (98-107); Glucose 76 mg/dL (74-106); Potassium 3.3 mmol/L (3.5-5.1); Sodium 125 mmol/L (136-145)
[2020-07-12 16:07] LABS: Alanine Aminotransferase 24 U/L (13-56); Alkaline Phosphatase 57 U/L (45-117); Aspartate Aminotransferase 25 U/L (15-37); BUN/Creatinine Ratio 7.7; Bilirubin, Total 0.6 mg/dL (0.2-1.0); GFR African American 116 mL/min; GFR Non-African American 96 mL/min; Total Protein 6.5 g/dL (6.4-8.2)
[2020-07-12] MEDS ORDERED: POTASSIUM EFFERVESENT TAB 25 MEQ PO ONE (17:00)
[2020-07-12 20:15] VITALS: BP 143/74
== END 2020-07-12 20:20 | disposition home or self-care (01) ==
LOC: ER 14:42
DX: K80.20 Calculus of gallbladder without cholecystitis without obstruction (principal); E87.6 Hypokalemia; J45.909 Unspecified asthma, uncomplicated; Z88.6 Allergy status to analgesic agent
CPT/HCPCS: 36415; 71045; 74176; 80053; 84484; 85025; 96372; 99285; J2930

== ENCOUNTER 2020-07-18 19:25 | Inpatient (IN) | payer OTHER ==
[~2020-07-18] VITALS: Ht 160 cm; Wt 54.4 kg
[2020-07-18] MEDS ORDERED: methylPREDNISolone SOD SUCC 125 MG/2 ML VL IV ONE (20:00)
[2020-07-18] MEDS ORDERED: IPRATROPIUM BROM 0.5 MG/2.5ML INH SOL NEB ONE (20:00)
[2020-07-18] MEDS ORDERED: ALBUTEROL SULF 2.5 MG/0.5ML(0.5%) NEB SOLN NEB ONE (20:00)
[2020-07-18 20:10] LABS: Hemoglobin 13.7 g/dL (12.2-16.2)
[2020-07-18 20:12] LABS: Hematocrit 39.1 % (36.0-46.0); Mean Corpuscular Hemoglobin 34.5 pg (28.0-32.0); Mean Corpuscular Hgb Conc. 34.9 g/dL (32.0-36.0); Mean Corpuscular Volume 98.8 fL (80.0-100.0); Red Blood Cells 3.96 10^6/uL (4.0-5.20); Red Cell Distribution Width 13.8 % (11.8-14.3); White Blood Cell 5.6 10^3/uL (4.4-10.8)
[2020-07-18 20:29] LABS: Alanine Aminotransferase 26 U/L (13-56); Albumin 3.7 g/dL (3.4-5.0); Anion Gap 7 (5-15); Aspartate Aminotransferase 18 U/L (15-37); BUN/Creatinine Ratio 17.7; Blood Urea Nitrogen 11 mg/dL (7-18); Calcium 9.1 mg/dL (8.5-10.1); Carbon Dioxide 28 mmol/L (21-32); Chloride 95 mmol/L (98-107); GFR African American 123 mL/min; GFR Non-African American 101 mL/min; Glucose 105 mg/dL (74-106); Potassium 3.3 mmol/L (3.5-5.1); Sodium 130 mmol/L (136-145)
[2020-07-18] MEDS ORDERED: SODIUM CHLORIDE 0.9% 500 ML IV ONE (20:30)
[2020-07-18] MEDS ORDERED: cefTRIAXone 1GM/50ML D5W 50 ML IV ONE (20:30)
[2020-07-18 20:33] LABS: Band Neutrophils % (manual) 0; Basophils % (manual) 0 (0.0-2.0); Blast Cells 0; Metamyelocytes % 0; Myelocytes % 0; Promyelocytes % 0; Reactive Lymphocytes 0
[2020-07-18 20:40] LABS: Alkaline Phosphatase 53 U/L (45-117); Bilirubin, Total 0.5 mg/dL (0.2-1.0); Total Protein 6.3 g/dL (6.4-8.2)
[2020-07-18 20:53] LABS: INR 0.93 (0.9-1.15); Partial Thromboplastin Time 25.7 sec (23.0-31.2)
[2020-07-18 21:55] LABS: Eosinophils % (manual) 14 (0-7); Lymphocytes % (manual) 32 (10.0-50.0); Monocytes % (manual) 9 (0-12)
[2020-07-19] MEDS ORDERED: ONDANSETRON HCL 4 MG/2 ML VIAL IV PRN (01:00)
[2020-07-19] MEDS ORDERED: ACETAMINOPHEN 325 MG TAB PO PRN (01:00)
[2020-07-19] MEDS ORDERED: TEMAZEPAM 15 MG CAP PO PRN ×2 (01:00→14:30)
[2020-07-19] MEDS ORDERED: MORPHINE SULFATE INJECTION 2 MG/ML SYRG IV PRN (01:00)
[2020-07-19] MEDS ORDERED: NITROGLYCERIN 0.4 MG SL TAB SL PRN (01:00)
[2020-07-19] MEDS ORDERED: POTASSIUM EFFERVESENT TAB 25 MEQ PO ONE (03:45)
[2020-07-19] MEDS: IPRATROPIUM BROM 0.5 MG/2.5ML INH SOL NEB SCH ×2 (06:00→12:00)
[2020-07-19] MEDS: ALBUTEROL SULF 2.5 MG/0.5ML(0.5%) NEB SOLN NEB SCH ×3 (06:00→18:00)
[2020-07-19] MEDS ORDERED: cefTRIAXone 1GM/50ML D5W 50 ML IV SCH (09:00)
[2020-07-19] MEDS ORDERED: ENOXAPARIN SOD 40 MG/0.4 ML SYRINGE SC SCH (10:00)
[2020-07-19] MEDS ORDERED: FAMOTIDINE 20 MG TAB PO SCH (10:00)
[2020-07-19] MEDS ORDERED: methylPREDNISolone SOD SUCC 125 MG/2 ML VL IV SCH ×2 (10:00→14:00)
[2020-07-19] MEDS: BUDESONIDE (INHALATION) 0.5 MG/2 ML NEB NEB SCH ×2 (10:00→22:00)
[2020-07-19] MEDS ORDERED: DOXYCYCLINE 100 MG TAB/CAP PO SCH (11:45)
[2020-07-19] MEDS ORDERED: BUDE1AER4 PO (12:10)
[2020-07-19] MEDS ORDERED: IPRATROPIUM BROM 0.5 MG/2.5ML INH SOL NEB PRN (13:30)
[2020-07-19] MEDS ORDERED: DOX100T PO (13:34)
[2020-07-19 13:38] VITALS: BP 136/73
[2020-07-19 14:14] LABS: Basophils # (auto) 0 10 ^3/uL (0-0.2); Basophils % (auto) 0.2 % (0.0-2.0); Eosinophils # (auto) 0 10 ^3/uL (0-0.8); Hematocrit 37.6 % (36.0-46.0); Hemoglobin 12.9 g/dL (12.2-16.2); Lymphocytes # (auto) 0.3 10 ^3/uL (0.4-5.4); Lymphocytes % (auto) 11.4 % (10.0-50.0); Mean Corpuscular Hemoglobin 33.9 pg (28.0-32.0); Mean Corpuscular Hgb Conc. 34.3 g/dL (32.0-36.0); Mean Corpuscular Volume 98.8 fL (80.0-100.0); Monocytes # (auto) 0 10 ^3/uL (0-1.3); Monocytes % (auto) 1.9 % (0.0-12.0); Neutrophils # (auto) 2.1 10 ^3/uL (1.6-8.6); Neutrophils % (auto) 86.5 % (37.0-80.0); Nucleated Red Blood Cells % 0.1 %; Red Cell Distribution Width 13.8 % (11.8-14.3); White Blood Cell 2.4 10^3/uL (4.4-10.8)
[2020-07-19 14:41] LABS: BUN/Creatinine Ratio 14.3; Calcium 8.8 mg/dL (8.5-10.1); Potassium 3.7 mmol/L (3.5-5.1)
[2020-07-19] MEDS ORDERED: SUCRALFATE 1 GM TAB PO SCH (17:00)
[2020-07-19] MEDS ORDERED: TIZANIDINE 2 MG PO SCH (22:00)
[2020-07-19] MEDS ORDERED: GABAPENTIN 300 MG CAP PO SCH (22:00)
[2020-07-19] MEDS ORDERED: traZODone HCL 50 MG TAB PO SCH (22:00)
[2020-07-19] MEDS ORDERED: BUDESONIDE FORMOTEROL PO SCH (22:00)
[2020-07-20] MEDS ORDERED: ASCORBIC ACID 500 MG TAB PO SCH (10:00)
[2020-07-20] MEDS ORDERED: predniSONE 20 MG TAB PO SCH (10:00)
[2020-07-20] MEDS ORDERED: busPIRone HCL 10 MG TAB PO SCH (10:00)
[2020-07-20] MEDS ORDERED: FERROUS SULFATE 325mg EC TAB PO SCH (10:00)
[2020-07-20] MEDS ORDERED: FOLIC ACID 1 MG TAB PO SCH (10:00)
[2020-07-20] MEDS ORDERED: CHOLECALCIFEROL (VITD3) 2,000 UNIT CAP/TAB PO SCH (10:00)
[2020-07-20] MEDS ORDERED: PANTOPRAZOLE 40 MG TAB PO SCH (10:00)
[2020-07-20] MEDS ORDERED: CYANOCOBALAMIN (B-12) 1000 MCG/1 ML VIAL SUBCUT SCH (10:00)
== END 2020-07-19 16:00 | disposition home or self-care (01) | DRG 189 ==
LOC: ER 19:25 → TELE 19:26
PROVIDERS: ADMIT Nurse Practitioner; ATTEND Internal Medicine
DX: J96.01 Acute respiratory failure with hypoxia (principal); J45.902 Unspecified asthma with status asthmaticus; J01.00 Acute maxillary sinusitis, unspecified; Z20.822 Contact with and (suspected) exposure to COVID-19; F41.8 Other specified anxiety disorders; K21.9 Gastro-esophageal reflux disease without esophagitis; J98.4 Other disorders of lung; E78.5 Hyperlipidemia, unspecified; R53.81 Other malaise; Z83.3 Family history of diabetes mellitus; Z81.1 Family history of alcohol abuse and dependence; Z79.899 Other long term (current) drug therapy; Z80.0 Family history of malignant neoplasm of digestive organs
CPT/HCPCS: 36415; 36600; 71045; 71250; 80048; 80053; 82805; 83605; 83880; 84484; 85007; 85025; 85027; 85379; 85610; 85730; 87426; 87804; 93005; 94640; 94644; 96365; 96375; G0378; J0696

== ENCOUNTER 2020-10-05 10:23 | Emergency (ER) | payer OTHER ==
[~2020-10-05] VITALS: Ht 160 cm; Wt 63.5 kg
[~2020-10-05 10:23] MED LIST changes: -ALPR0.5T PO; -BUDE0.253 IN; +BUDE1AER4 PO; -CARI-277 PO; +DOX100T PO; -EPIN0.1I11 IJ; -FLUT1INH4 IN; -MELA3TAB27 PO
[2020-10-05 10:24] VITALS: BP 113/61
== END 2020-10-05 11:48 | disposition home or self-care (01) ==
LOC: ER 10:23
DX: H11.31 Conjunctival hemorrhage, right eye (principal); Z79.899 Other long term (current) drug therapy

== ENCOUNTER 2020-10-10 09:21 | Inpatient (IN) | payer OTHER ==
[~2020-10-10] VITALS: Ht 160 cm; Wt 70.6 kg
[~2020-10-10 09:21] MED LIST changes: -TIZA2TAB3 PO; +TIZA2TAB4 PO
[2020-10-10] MEDS ORDERED: IPRATROPIUM BROM 0.5 MG/2.5ML INH SOL NEB ONE ×2 (11:00→15:45)
[2020-10-10] MEDS ORDERED: ALBUTEROL SULF 2.5 MG/0.5ML(0.5%) NEB SOLN NEB ONE ×2 (11:00→15:45)
[2020-10-10] MEDS ORDERED: methylPREDNISolone SOD SUCC 125 MG/2 ML VL IV ONE (11:00)
[2020-10-10 11:22] LABS: Basophils # (auto) 0.1 10 ^3/uL (0-0.2); Basophils % (auto) 1.8 % (0.0-2.0); Eosinophils # (auto) 0.5 10 ^3/uL (0-0.8); Eosinophils % (auto) 11.7 % (0.0-7.0); Hematocrit 38.7 % (36.0-46.0); Lymphocytes # (auto) 1.2 10 ^3/uL (0.4-5.4); Lymphocytes % (auto) 27.2 % (10.0-50.0); Mean Corpuscular Hemoglobin 32.5 pg (28.0-32.0); Mean Corpuscular Hgb Conc. 33.6 g/dL (32.0-36.0); Mean Corpuscular Volume 96.9 fL (80.0-100.0); Monocytes # (auto) 0.4 10 ^3/uL (0-1.3); Monocytes % (auto) 8.7 % (0.0-12.0); Neutrophils # (auto) 2.2 10 ^3/uL (1.6-8.6); Neutrophils % (auto) 50.6 % (37.0-80.0); Nucleated Red Blood Cells % 0.1 %; Red Cell Distribution Width 13.3 % (11.8-14.3); White Blood Cell 4.4 10^3/uL (4.4-10.8)
[2020-10-10 11:31] LABS: INR 1.02 (0.9-1.15); Partial Thromboplastin Time 25.9 sec (23.0-31.2)
[2020-10-10 11:48] LABS: Albumin 3.6 g/dL (3.4-5.0); Anion Gap 7 (5-15); Blood Urea Nitrogen 13 mg/dL (7-18); Calcium 9.9 mg/dL (8.5-10.1); Carbon Dioxide 26 mmol/L (21-32); Chloride 101 mmol/L (98-107); Glucose 91 mg/dL (74-106); Potassium 3.9 mmol/L (3.5-5.1); Sodium 134 mmol/L (136-145)
[2020-10-10 11:53] LABS: Alanine Aminotransferase 21 U/L (13-56); Alkaline Phosphatase 40 U/L (45-117); Aspartate Aminotransferase 20 U/L (15-37); BUN/Creatinine Ratio 23.2; Bilirubin, Total 0.8 mg/dL (0.2-1.0); GFR African American 138 mL/min; GFR Non-African American 114 mL/min; Total Protein 5.9 g/dL (6.4-8.2)
[2020-10-10] MEDS ORDERED: PROMETHAZINE HCL 25 MG/ML 1ML ONE (15:04)
[2020-10-10] MEDS ORDERED: PROMETHAZINE HCL 25 MG/ML 1ML IV ONE (15:15)
[2020-10-10] MEDS ORDERED: FAMOTIDINE (10MG/ML) 2ML VL IV ONE (15:45)
[2020-10-10] MEDS ORDERED: traMADol HCL 50 MG TAB PO PRN (16:15)
[2020-10-10] MEDS: SODIUM CHLORIDE 0.9% 1,000 ML IV SCH (16:15)
[2020-10-10] MEDS ORDERED: MORPHINE SULFATE INJECTION 2 MG/ML SYRG IV PRN (16:15)
[2020-10-10] MEDS ORDERED: LACTULOSE 20Gm/30ML SOLN PO PRN (16:15)
[2020-10-10] MEDS: methylPREDNISolone SOD SUCC 40 MG/ML VL IV SCH (16:15)
[2020-10-10] MEDS ORDERED: NITROGLYCERIN 0.4 MG SL TAB SL PRN (16:15)
[2020-10-10] MEDS ORDERED: ACETAMINOPHEN 500 MG TAB PO PRN (16:15)
[2020-10-10] MEDS: DOXYCYCLINE 100MG/250ML 250 ML IV SCH (16:15)
[2020-10-10] MEDS ORDERED: ALBUTEROL SULF 2.5 MG/0.5ML(0.5%) NEB SOLN NEB PRN (16:15)
[2020-10-10] MEDS: ALBUTEROL SULF 2.5 MG/0.5ML(0.5%) NEB SOLN NEB SCH (17:38)
[2020-10-10] MEDS: IPRATROPIUM BROM 0.5 MG/2.5ML INH SOL NEB SCH (17:39)
[2020-10-10 17:46] VITALS: BP 138/72
[2020-10-11] MEDS: ALBUTEROL SULF 2.5 MG/0.5ML(0.5%) NEB SOLN NEB SCH ×4 (00:30→18:56)
[2020-10-11] MEDS: IPRATROPIUM BROM 0.5 MG/2.5ML INH SOL NEB SCH ×4 (00:30→18:56)
[2020-10-11] MEDS: methylPREDNISolone SOD SUCC 40 MG/ML VL IV SCH ×3 (04:50→22:00)
[2020-10-11] MEDS: DOXYCYCLINE 100MG/250ML 250 ML IV SCH ×2 (04:50→16:45)
[2020-10-11] MEDS: SODIUM CHLORIDE 0.9% 1,000 ML IV SCH ×2 (05:35→19:14)
[2020-10-11] MEDS: ENOXAPARIN SOD 40 MG/0.4 ML SYRINGE SC SCH (10:22)
[2020-10-11 17:30] VITALS: BP 116/80
[2020-10-11] MEDS: BUDESONIDE (INHALATION) 0.5 MG/2 ML NEB NEB SCH (18:56)
[2020-10-11 20:00] VITALS: BP 134/69
[2020-10-11 22:00] VITALS: BP 134/69
[2020-10-11] MEDS: TEMAZEPAM 15 MG CAP PO PRN (22:00)
[2020-10-12] VITALS (7 sets, daily range): BP systolic 122–145; BP diastolic 65–83
[2020-10-12] MEDS: DOXYCYCLINE 100MG/250ML 250 ML IV SCH (04:15)
[2020-10-12] MEDS: methylPREDNISolone SOD SUCC 40 MG/ML VL IV SCH ×3 (06:00→22:00)
[2020-10-12 06:45] LABS: Basophils # (auto) 0 10 ^3/uL (0-0.2); Basophils % (auto) 0.1 % (0.0-2.0); Eosinophils # (auto) 0 10 ^3/uL (0-0.8); Hematocrit 40.5 % (36.0-46.0); Hemoglobin 13.6 g/dL (12.2-16.2); Lymphocytes # (auto) 0.7 10 ^3/uL (0.4-5.4); Lymphocytes % (auto) 9.5 % (10.0-50.0); Mean Corpuscular Hgb Conc. 33.6 g/dL (32.0-36.0); Mean Corpuscular Volume 98.2 fL (80.0-100.0); Monocytes # (auto) 0.2 10 ^3/uL (0-1.3); Monocytes % (auto) 2.5 % (0.0-12.0); Neutrophils # (auto) 6.6 10 ^3/uL (1.6-8.6); Neutrophils % (auto) 87.9 % (37.0-80.0); Nucleated Red Blood Cells % 0.1 %; Red Blood Cells 4.13 10^6/uL (4.0-5.20); Red Cell Distribution Width 13.3 % (11.8-14.3); White Blood Cell 7.5 10^3/uL (4.4-10.8)
[2020-10-12 06:56] LABS: Calcium 9.1 mg/dL (8.5-10.1); Magnesium 2.8 mg/dL (1.6-2.6); Potassium 3.6 mmol/L (3.5-5.1)
[2020-10-12 06:59] LABS: BUN/Creatinine Ratio 31.3
[2020-10-12] MEDS: SODIUM CHLORIDE 0.9% 1,000 ML IV SCH ×2 (08:15→21:35)
[2020-10-12] MEDS: BUDESONIDE (INHALATION) 0.5 MG/2 ML NEB NEB SCH ×2 (08:53→22:18)
[2020-10-12] MEDS: IPRATROPIUM BROM 0.5 MG/2.5ML INH SOL NEB SCH ×6 (08:53→22:18)
[2020-10-12] MEDS: ALBUTEROL SULF 2.5 MG/0.5ML(0.5%) NEB SOLN NEB SCH ×6 (08:53→22:18)
[2020-10-12] MEDS: ENOXAPARIN SOD 40 MG/0.4 ML SYRINGE SC SCH (09:33)
[2020-10-12] MEDS: ONDANSETRON HCL 4 MG/2 ML VIAL IV PRN (09:33)
[2020-10-12] MEDS: TEMAZEPAM 15 MG CAP PO PRN (22:00)
[2020-10-12] MEDS ORDERED: FAMOTIDINE 20 MG TAB PO SCH (22:00)
[2020-10-12] MEDS: DOXYCYCLINE 100 MG TAB/CAP PO SCH (22:00)
[2020-10-13 05:00] VITALS: BP 131/77
[2020-10-13] MEDS: methylPREDNISolone SOD SUCC 40 MG/ML VL IV SCH ×2 (06:00→14:34)
[2020-10-13] MEDS: BUDESONIDE (INHALATION) 0.5 MG/2 ML NEB NEB SCH (07:14)
[2020-10-13] MEDS: IPRATROPIUM BROM 0.5 MG/2.5ML INH SOL NEB SCH ×3 (07:15→14:09)
[2020-10-13] MEDS: ALBUTEROL SULF 2.5 MG/0.5ML(0.5%) NEB SOLN NEB SCH ×3 (07:15→14:09)
[2020-10-13 09:00] VITALS: BP 125/63
[2020-10-13] MEDS: ENOXAPARIN SOD 40 MG/0.4 ML SYRINGE SC SCH (10:20)
[2020-10-13] MEDS: DOXYCYCLINE 100 MG TAB/CAP PO SCH (10:20)
[2020-10-13] MEDS: SODIUM CHLORIDE 0.9% 1,000 ML IV SCH (10:55)
[2020-10-13 13:00] VITALS: BP 113/61
[2020-10-13] MEDS: ONDANSETRON HCL 4 MG/2 ML VIAL IV PRN (14:34)
== END 2020-10-13 17:15 | disposition home or self-care (01) | DRG 189 ==
LOC: ER 09:21 → TELE 16:14 → TELE-WESTW 10-11 17:30
PROVIDERS: ADMIT Internal Medicine; ATTEND Internal Medicine
DX: J96.21 Acute and chronic respiratory failure with hypoxia (principal); J45.902 Unspecified asthma with status asthmaticus; E87.1 Hypo-osmolality and hyponatremia; J44.1 Chronic obstructive pulmonary disease with (acute) exacerbation; J44.0 Chronic obstructive pulmonary disease with (acute) lower respiratory infection; Z20.822 Contact with and (suspected) exposure to COVID-19; M19.90 Unspecified osteoarthritis, unspecified site; K80.20 Calculus of gallbladder without cholecystitis without obstruction; I10 Essential (primary) hypertension; E11.9 Type 2 diabetes mellitus without complications; F02.80 Dementia in other diseases classified elsewhere, unspecified severity, without behavioral disturbance, psychotic disturbance, mood disturbance, and anxiety; F51.04 Psychophysiologic insomnia; G30.9 Alzheimer's disease, unspecified; J20.9 Acute bronchitis, unspecified; Z88.8 Allergy status to other drugs, medicaments and biological substances; Z80.0 Family history of malignant neoplasm of digestive organs; Z83.3 Family history of diabetes mellitus
CPT/HCPCS: 36415; 71045; 80048; 80053; 83605; 83735; 84484; 85025; 85379; 85610; 85730; 87040; 87426; 93005; 93970; 94640; 96365; 96375; G0378; J2405; J3490

== ENCOUNTER 2020-12-29 08:05 | Inpatient (IN) | payer OTHER ==
[~2020-12-29] VITALS: Ht 160 cm; Wt 63.1 kg
[~2020-12-29 08:05] MED LIST changes: +TIZA2TAB3 PO; -TIZA2TAB4 PO
[2020-12-29] MEDS ORDERED: methylPREDNISolone SOD SUCC 125 MG/2 ML VL IV ONE (08:30)
[2020-12-29] MEDS ORDERED: IPRATROPIUM BROM 0.5 MG/2.5ML INH SOL NEB ONE ×2 (08:30→08:45)
[2020-12-29] MEDS ORDERED: ALBUTEROL SULF 2.5 MG/0.5ML(0.5%) NEB SOLN NEB ONE ×2 (08:30→08:45)
[2020-12-29] MEDS ORDERED: IPRATROPIUM BROM 0.5 MG/2.5ML INH SOL ONE (08:39)
[2020-12-29] MEDS ORDERED: ALBUTEROL SULF 2.5 MG/0.5ML(0.5%) NEB SOLN ONE (08:39)
[2020-12-29 08:59] LABS: Basophils # (auto) 0.1 10 ^3/uL (0-0.2); Eosinophils # (auto) 0.7 10 ^3/uL (0-0.8); Hematocrit 39.1 % (36.0-46.0); Neutrophils # (auto) 3.5 10 ^3/uL (1.6-8.6); Red Cell Distribution Width 14.2 % (11.8-14.3)
[2020-12-29] MEDS ORDERED: SODIUM CHLORIDE 0.9% 1,000 ML IV ONE ×2 (09:00→12:15)
[2020-12-29 09:01] LABS: Basophils % (auto) 1.9 % (0.0-2.0); Hemoglobin 13.8 g/dL (12.2-16.2); Lymphocytes # (auto) 1.5 10 ^3/uL (0.4-5.4); Lymphocytes % (auto) 24.2 % (10.0-50.0); Mean Corpuscular Hemoglobin 34.6 pg (28.0-32.0); Mean Corpuscular Hgb Conc. 35.3 g/dL (32.0-36.0); Mean Corpuscular Volume 98.1 fL (80.0-100.0); Monocytes # (auto) 0.5 10 ^3/uL (0-1.3); Monocytes % (auto) 7.5 % (0.0-12.0); Neutrophils % (auto) 55.4 % (37.0-80.0); Platelet Count (auto) 243 10^3/uL (140-450); Red Blood Cells 3.99 10^6/uL (4.0-5.20); White Blood Cell 6.2 10^3/uL (4.4-10.8)
[2020-12-29 09:15] LABS: Albumin 3.8 g/dL (3.4-5.0); Anion Gap 7 (5-15); Blood Urea Nitrogen 11 mg/dL (7-18); Calcium 8.3 mg/dL (8.5-10.1); Carbon Dioxide 25 mmol/L (21-32); Chloride 102 mmol/L (98-107); Glucose 93 mg/dL (74-106); Potassium 3.4 mmol/L (3.5-5.1); Sodium 134 mmol/L (136-145)
[2020-12-29 09:21] LABS: Alanine Aminotransferase 23 U/L (13-56); Alkaline Phosphatase 51 U/L (45-117); Aspartate Aminotransferase 17 U/L (15-37); BUN/Creatinine Ratio 19.6; Bilirubin, Total 0.7 mg/dL (0.2-1.0); GFR African American 138 mL/min; GFR Non-African American 114 mL/min; Total Protein 6.4 g/dL (6.4-8.2)
[2020-12-29] MEDS ORDERED: HYDROcodone-ACET 5/325MG TAB PO PRN (12:15)
[2020-12-29] MEDS ORDERED: CALCIUM CARB 500 MG CHEW TAB PO PRN (12:15)
[2020-12-29] MEDS ORDERED: MORPHINE SULF INJ 2 MG/ML SYRINGE 1ML IV PRN ×2 (12:15)
[2020-12-29] MEDS ORDERED: ONDANSETRON HCL 4 MG/2 ML VIAL IV PRN (12:15)
[2020-12-29] MEDS ORDERED: NITROGLYCERIN 0.4 MG SL TAB SL PRN (12:15)
[2020-12-29] MEDS ORDERED: ACETAMINOPHEN 500 MG TAB PO PRN (12:15)
[2020-12-29 12:22] VITALS: BP 131/65
[2020-12-29] MEDS: PANTOPRAZOLE 40 MG TAB PO SCH (13:45)
[2020-12-29] MEDS: ALBUTEROL SULF 2.5 MG/0.5ML(0.5%) NEB SOLN NEB SCH ×3 (14:30→22:38)
[2020-12-29] MEDS: IPRATROPIUM BROM 0.5 MG/2.5ML INH SOL NEB SCH ×3 (14:30→22:38)
[2020-12-29 16:49] VITALS: BP 129/61
[2020-12-29 17:00] VITALS: BP 129/61
[2020-12-29] MEDS ORDERED: PRED10TA PO (17:39)
[2020-12-29] MEDS: BUDESONIDE (INHALATION) 0.5 MG/2 ML NEB NEB SCH (18:54)
[2020-12-29] MEDS: guaiFENesin 200 MG/10 ML UD PO PRN (21:25)
[2020-12-29] MEDS: methylPREDNISolone SOD SUCC 40 MG/ML VL IV SCH (21:25)
[2020-12-29 22:00] VITALS: BP 135/76
[2020-12-29] MEDS ORDERED: traZODone HCL 50 MG TAB PO SCH (22:00)
[2020-12-29 23:19] LABS: Urine Amorphous Crystal FEW /hpf (None Seen); Urine Bacteria FEW /hpf (None Seen); Urine Blood Negative /uL (Negative); Urine Specific Gravity 1.005 (1.001-1.035); Urine WBC 44 /hpf (0 - 5)
[2020-12-30] MEDS: guaiFENesin 200 MG/10 ML UD PO PRN ×3 (03:33→14:55)
[2020-12-30 05:00] VITALS: BP 123/67
[2020-12-30] MEDS: IPRATROPIUM BROM 0.5 MG/2.5ML INH SOL NEB SCH ×4 (06:11→18:55)
[2020-12-30] MEDS: ALBUTEROL SULF 2.5 MG/0.5ML(0.5%) NEB SOLN NEB SCH ×4 (06:11→18:55)
[2020-12-30 09:00] VITALS: BP 133/59
[2020-12-30] MEDS: PANTOPRAZOLE 40 MG TAB PO SCH (09:41)
[2020-12-30] MEDS: methylPREDNISolone SOD SUCC 40 MG/ML VL IV SCH (09:41)
[2020-12-30] MEDS ORDERED: ASCORBIC ACID 500 MG TAB PO SCH (10:00)
[2020-12-30] MEDS ORDERED: AZITHROMYCIN 250 MG TAB PO SCH (10:00)
[2020-12-30] MEDS ORDERED: busPIRone HCL 10 MG TAB PO SCH (10:00)
[2020-12-30] MEDS: BUDESONIDE (INHALATION) 0.5 MG/2 ML NEB NEB SCH ×2 (11:00→18:55)
[2020-12-30 13:00] VITALS: BP 109/71
[2020-12-30] MEDS ORDERED: POTASSIUM CHL 20 Meq TABLET PO ONE (16:15)
[2020-12-30] MEDS ORDERED: AZIT500T66 PO (16:36)
[2020-12-30] MEDS ORDERED: PRED20TA2 PO (16:36)
[2020-12-30 17:17] VITALS: BP 113/65
[2020-12-30 18:45] VITALS: BP 109/71
== END 2020-12-30 19:59 | disposition home or self-care (01) | DRG 189 ==
LOC: ER 08:05 → TELE 12:03 → TELE-CENTR 15:47
PROVIDERS: ADMIT Nurse Practitioner Acute Care; ATTEND Internal Medicine
DX: J96.21 Acute and chronic respiratory failure with hypoxia (principal); J45.901 Unspecified asthma with (acute) exacerbation; J44.1 Chronic obstructive pulmonary disease with (acute) exacerbation; E87.6 Hypokalemia; F41.9 Anxiety disorder, unspecified; F03.90 Unspecified dementia, unspecified severity, without behavioral disturbance, psychotic disturbance, mood disturbance, and anxiety; K21.9 Gastro-esophageal reflux disease without esophagitis; F32.9 Major depressive disorder, single episode, unspecified; Z20.822 Contact with and (suspected) exposure to COVID-19; Z79.899 Other long term (current) drug therapy; Z80.0 Family history of malignant neoplasm of digestive organs; Z83.3 Family history of diabetes mellitus; Z88.8 Allergy status to other drugs, medicaments and biological substances
CPT/HCPCS: 36415; 71045; 80053; 81001; 83735; 83880; 84443; 84484; 85025; 85049; 85379; 87426; 93005; 94640; 94644; 96361; 96374; G0378

== ENCOUNTER 2021-01-26 16:54 | Inpatient (IN) | payer OTHER ==
[~2021-01-26] VITALS: Ht 160 cm; Wt 66.1 kg
[~2021-01-26 16:54] MED LIST changes: +AZIT500T66 PO; -DOX100T PO; +PRED10TA PO; +PRED20TA2 PO; -TIZA2TAB3 PO; +TIZA2TAB4 PO
[2021-01-26] MEDS ORDERED: ALBUTEROL SULF 2.5 MG/0.5ML(0.5%) NEB SOLN NEB ONE ×2 (17:15→17:45)
[2021-01-26] MEDS ORDERED: methylPREDNISolone SOD SUCC 125 MG/2 ML VL IV ONE (17:15)
[2021-01-26] MEDS ORDERED: IPRATROPIUM BROM 0.5 MG/2.5ML INH SOL NEB ONE (17:15)
[2021-01-26] MEDS ORDERED: cefTRIAXone 1GM/50ML D5W 50 ML IV ONE (17:15)
[2021-01-26] MEDS ORDERED: MAGNESIUM SULFATE 1GM/100ML 100 ML IV ONE (17:15)
[2021-01-26 17:22] LABS: Basophils # (auto) 0.1 10 ^3/uL (0-0.2); Eosinophils # (auto) 0.7 10 ^3/uL (0-0.8); Hemoglobin 14.3 g/dL (12.2-16.2); Lymphocytes # (auto) 2.4 10 ^3/uL (0.4-5.4); Monocytes # (auto) 0.7 10 ^3/uL (0-1.3); Neutrophils # (auto) 3.4 10 ^3/uL (1.6-8.6); White Blood Cell 7.3 10^3/uL (4.4-10.8)
[2021-01-26 17:25] LABS: Basophils % (auto) 1.2 % (0.0-2.0); Eosinophils % (auto) 10.2 % (0.0-7.0); Hematocrit 40.8 % (36.0-46.0); Lymphocytes % (auto) 32.9 % (10.0-50.0); Mean Corpuscular Hemoglobin 34.5 pg (28.0-32.0); Mean Corpuscular Hgb Conc. 35.2 g/dL (32.0-36.0); Mean Corpuscular Volume 98.1 fL (80.0-100.0); Monocytes % (auto) 9.2 % (0.0-12.0); Neutrophils % (auto) 46.5 % (37.0-80.0); Red Blood Cells 4.16 10^6/uL (4.0-5.20); Red Cell Distribution Width 13.2 % (11.8-14.3)
[2021-01-26 17:42] LABS: Calcium 9.4 mg/dL (8.5-10.1); Chloride 105 mmol/L (98-107); Potassium 3.3 mmol/L (3.5-5.1); Sodium 139 mmol/L (136-145)
[2021-01-26 17:45] LABS: Alanine Aminotransferase 24 U/L (13-56); Anion Gap 5 (5-15); Aspartate Aminotransferase 17 U/L (15-37); BUN/Creatinine Ratio 14.7; Blood Urea Nitrogen 11 mg/dL (7-18); Carbon Dioxide 29 mmol/L (21-32); GFR African American 99 mL/min; GFR Non-African American 81 mL/min; Glucose 89 mg/dL (74-106); Magnesium 2.2 mg/dL (1.6-2.6)
[2021-01-26 17:50] LABS: Alkaline Phosphatase 49 U/L (45-117); Bilirubin, Total 0.4 mg/dL (0.2-1.0); Total Protein 6.8 g/dL (6.4-8.2)
[2021-01-26 18:13] VITALS: BP 144/73
[2021-01-26] MEDS ORDERED: ONDANSETRON HCL 4 MG/2 ML VIAL IV PRN (18:45)
[2021-01-26] MEDS ORDERED: NITROGLYCERIN 0.4 MG SL TAB SL PRN (18:45)
[2021-01-26] MEDS ORDERED: MORPHINE SULFATE INJECTION 2 MG/ML SYRG IV PRN ×2 (18:45)
[2021-01-26] MEDS ORDERED: HYDROcodone-ACET 5/325MG TAB PO PRN (18:45)
[2021-01-26] MEDS ORDERED: ACETAMINOPHEN 500 MG TAB PO PRN (18:45)
[2021-01-26] MEDS ORDERED: POTASSIUM EFFERVESENT TAB 25 MEQ PO ONE (19:30)
[2021-01-26] MEDS: GABAPENTIN 300 MG CAP PO SCH (22:00)
[2021-01-26] MEDS: IPRATROPIUM BROM 0.5 MG/2.5ML INH SOL NEB SCH (22:09)
[2021-01-26] MEDS: BUDESONIDE (INHALATION) 0.5 MG/2 ML NEB NEB SCH (22:09)
[2021-01-26] MEDS: ALBUTEROL SULF 2.5 MG/0.5ML(0.5%) NEB SOLN NEB SCH (22:09)
[2021-01-26] MEDS ORDERED: TEMAZEPAM 15 MG CAP PO ONE (22:45)
[2021-01-27] MEDS ORDERED: PANTOPRAZOLE 40 MG/10 ML VIAL INJ IV ONE (00:45)
[2021-01-27 02:17] VITALS: BP 126/57
[2021-01-27 04:46] VITALS: BP 106/55
[2021-01-27 07:07] LABS: Calcium 8.6 mg/dL (8.5-10.1)
[2021-01-27 07:14] LABS: BUN/Creatinine Ratio 20.7
[2021-01-27 07:21] LABS: Basophils # (auto) 0 10 ^3/uL (0-0.2); Eosinophils # (auto) 0 10 ^3/uL (0-0.8); Hemoglobin 13.3 g/dL (12.2-16.2); Lymphocytes # (auto) 0.6 10 ^3/uL (0.4-5.4); Mean Corpuscular Hemoglobin 34.5 pg (28.0-32.0); Monocytes # (auto) 0.1 10 ^3/uL (0-1.3)
[2021-01-27 07:22] LABS: Basophils % (auto) 1.1 % (0.0-2.0); Lymphocytes % (auto) 17.5 % (10.0-50.0); Mean Corpuscular Hgb Conc. 34.9 g/dL (32.0-36.0); Mean Corpuscular Volume 98.9 fL (80.0-100.0); Neutrophils # (auto) 2.6 10 ^3/uL (1.6-8.6); Neutrophils % (auto) 78.4 % (37.0-80.0); Red Blood Cells 3.85 10^6/uL (4.0-5.20); Red Cell Distribution Width 13.5 % (11.8-14.3); White Blood Cell 3.3 10^3/uL (4.4-10.8)
[2021-01-27] MEDS: IPRATROPIUM BROM 0.5 MG/2.5ML INH SOL NEB SCH ×4 (07:29→22:09)
[2021-01-27] MEDS: BUDESONIDE (INHALATION) 0.5 MG/2 ML NEB NEB SCH ×2 (07:30→18:41)
[2021-01-27] MEDS: ALBUTEROL SULF 2.5 MG/0.5ML(0.5%) NEB SOLN NEB SCH ×4 (07:30→22:07)
[2021-01-27 09:00] VITALS: BP 105/83
[2021-01-27] MEDS: methylPREDNISolone SOD SUCC 125 MG/2 ML VL IV SCH ×2 (09:30→21:18)
[2021-01-27] MEDS: FOLIC ACID 1 MG TAB PO SCH (09:30)
[2021-01-27] MEDS: busPIRone HCL 10 MG TAB PO SCH (09:30)
[2021-01-27] MEDS: GABAPENTIN 300 MG CAP PO SCH ×2 (09:30→21:19)
[2021-01-27] MEDS: AZITHROMYCIN 500MG/ 250ML 250 ML IV SCH (09:30)
[2021-01-27] MEDS ORDERED: MAGNESIUM SULFATE 40MG/ML 0 ML IV ONE (11:47)
[2021-01-27] MEDS ORDERED: MAGNESIUM SULFATE 0 ML IV ONE (11:47)
[2021-01-27] MEDS ORDERED: PRED20TA2 PO (11:56)
[2021-01-27] MEDS ORDERED: LEVO500T31 PO (11:56)
[2021-01-27 13:00] VITALS: BP 131/72
[2021-01-27 15:52] LABS: Urine Bacteria NONE SEEN /hpf (None Seen); Urine Blood Negative /uL (Negative); Urine Specific Gravity 1.011 (1.001-1.035); Urine WBC <1 /hpf (0 - 5)
[2021-01-27] MEDS: guaiFENesin 200 MG/10 ML UD PO PRN (20:49)
[2021-01-27] MEDS: cefTRIAXone 1GM/50ML D5W 50 ML IV SCH (21:18)
[2021-01-27 22:00] VITALS: BP 117/72
[2021-01-27] MEDS ORDERED: TEMAZEPAM 15 MG CAP PO ONE (22:30)
[2021-01-28 05:00] VITALS: BP 119/64
[2021-01-28] MEDS: guaiFENesin 200 MG/10 ML UD PO PRN ×4 (06:19→20:55)
[2021-01-28] MEDS: ALBUTEROL SULF 2.5 MG/0.5ML(0.5%) NEB SOLN NEB SCH ×5 (06:27→22:15)
[2021-01-28] MEDS: IPRATROPIUM BROM 0.5 MG/2.5ML INH SOL NEB SCH ×5 (06:27→22:15)
[2021-01-28] MEDS: BUDESONIDE (INHALATION) 0.5 MG/2 ML NEB NEB SCH ×3 (06:27→18:29)
[2021-01-28 08:15] VITALS: BP 124/68
[2021-01-28 09:02] VITALS: BP 124/68
[2021-01-28] MEDS: AZITHROMYCIN 500MG/ 250ML 250 ML IV SCH (10:28)
[2021-01-28] MEDS: methylPREDNISolone SOD SUCC 125 MG/2 ML VL IV SCH ×2 (10:28→21:14)
[2021-01-28] MEDS: FOLIC ACID 1 MG TAB PO SCH (10:29)
[2021-01-28] MEDS: busPIRone HCL 10 MG TAB PO SCH (10:29)
[2021-01-28] MEDS: GABAPENTIN 300 MG CAP PO SCH ×2 (10:29→21:14)
[2021-01-28 12:52] VITALS: BP 112/57
[2021-01-28 16:54] VITALS: BP 110/57
[2021-01-28] MEDS: cefTRIAXone 1GM/50ML D5W 50 ML IV SCH (21:13)
[2021-01-28 22:00] VITALS: BP 123/74
[2021-01-28] MEDS ORDERED: PANTOPRAZOLE 40 MG TAB PO ONE (22:00)
[2021-01-28] MEDS ORDERED: CALCIUM CARB 500 MG CHEW TAB PO PRN (22:00)
[2021-01-28] MEDS ORDERED: TEMAZEPAM 15 MG CAP PO ONE (22:00)
[2021-01-29] MEDS: guaiFENesin 200 MG/10 ML UD PO SCH ×3 (00:33→12:39)
[2021-01-29 05:00] VITALS: BP 116/65
[2021-01-29] MEDS: BUDESONIDE (INHALATION) 0.5 MG/2 ML NEB NEB SCH (06:18)
[2021-01-29] MEDS: ALBUTEROL SULF 2.5 MG/0.5ML(0.5%) NEB SOLN NEB SCH ×3 (06:18→14:15)
[2021-01-29] MEDS: IPRATROPIUM BROM 0.5 MG/2.5ML INH SOL NEB SCH ×3 (06:18→14:15)
[2021-01-29 08:15] VITALS: BP 106/59
[2021-01-29 09:00] VITALS: BP 106/59
[2021-01-29] MEDS ORDERED: PANTOPRAZOLE 40 MG TAB PO SCH (10:00)
[2021-01-29] MEDS: FOLIC ACID 1 MG TAB PO SCH (11:15)
[2021-01-29] MEDS: GABAPENTIN 300 MG CAP PO SCH (11:15)
[2021-01-29] MEDS: busPIRone HCL 10 MG TAB PO SCH (11:15)
[2021-01-29] MEDS: methylPREDNISolone SOD SUCC 125 MG/2 ML VL IV SCH (11:15)
[2021-01-29] MEDS: AZITHROMYCIN 500MG/ 250ML 250 ML IV SCH (11:15)
[2021-01-29 13:00] VITALS: BP 124/62
== END 2021-01-29 15:40 | disposition home or self-care (01) | DRG 189 ==
LOC: ER 16:54 → TELE 18:31 → TELE-CENTR 23:03
PROVIDERS: ADMIT Nurse Practitioner Acute Care; ATTEND Internal Medicine
DX: J96.21 Acute and chronic respiratory failure with hypoxia (principal); J44.1 Chronic obstructive pulmonary disease with (acute) exacerbation; J45.901 Unspecified asthma with (acute) exacerbation; F03.90 Unspecified dementia, unspecified severity, without behavioral disturbance, psychotic disturbance, mood disturbance, and anxiety; F41.9 Anxiety disorder, unspecified; K21.9 Gastro-esophageal reflux disease without esophagitis; F32.9 Major depressive disorder, single episode, unspecified; Z20.822 Contact with and (suspected) exposure to COVID-19; Z79.899 Other long term (current) drug therapy; Z80.0 Family history of malignant neoplasm of digestive organs; Z83.3 Family history of diabetes mellitus; Z88.2 Allergy status to sulfonamides
CPT/HCPCS: 36415; 71045; 80048; 80053; 81001; 83605; 83735; 84484; 85025; 87040; 87426; 93005; 94640; 94644; 96365; 96368; 96375; C9113; G0378; J0696; J2405

== ENCOUNTER 2021-10-20 04:38 | Inpatient (IN) | payer MEDICARE, OTHER ==
[~2021-10-20] VITALS: Ht 160 cm; Wt 71.5 kg
[~2021-10-20 04:38] MED LIST changes: -AZIT500T66 PO; +LEVO500T31 PO
[2021-10-20] MEDS ORDERED: ALBUTEROL SULF 2.5 MG/0.5ML(0.5%) NEB SOLN NEB STA (04:43)
[2021-10-20] MEDS ORDERED: IPRATROPIUM BROM 0.5 MG/2.5ML INH SOL NEB ONE ×2 (04:45→06:45)
[2021-10-20 05:14] LABS: Hematocrit 37.3 % (36.0-46.0); Hemoglobin 12.6 g/dL (12.2-16.2); Mean Corpuscular Hemoglobin 30.6 pg (28.0-32.0); Mean Corpuscular Hgb Conc. 33.7 g/dL (32.0-36.0); Red Cell Distribution Width 14.2 % (11.8-14.3); White Blood Cell 5.2 10^3/uL (4.4-10.8)
[2021-10-20 05:23] LABS: Basophils % (manual) 0 (0.0-2.0); Blast Cells 0; Metamyelocytes % 0; Myelocytes % 0; Promyelocytes % 0; Reactive Lymphocytes 0
[2021-10-20 05:27] LABS: Albumin 3.7 g/dL (3.4-5.0); Calcium 9.9 mg/dL (8.5-10.1)
[2021-10-20 05:30] LABS: BUN/Creatinine Ratio 17.9; Bilirubin, Total 0.4 mg/dL (0.2-1.0); Total Protein 6.5 g/dL (6.4-8.2)
[2021-10-20] MEDS ORDERED: predniSONE 20 MG TAB PO ONE (06:45)
[2021-10-20] MEDS ORDERED: ALBUTEROL SULF 2.5 MG/0.5ML(0.5%) NEB SOLN NEB ONE (06:45)
[2021-10-20 07:04] LABS: Band Neutrophils % (manual) 3; Eosinophils % (manual) 18 (0-7); Lymphocytes % (manual) 42 (10.0-50.0); Monocytes % (manual) 2 (0-12)
[2021-10-20] MEDS ORDERED: TERBUTALINE SULFATE 1 MG/ML 1ML VIAL SC ONE (11:30)
[2021-10-20] MEDS ORDERED: MORPHINE SULFATE INJECTION 2 MG/ML SYRG IV PRN ×2 (12:15→14:45)
[2021-10-20] MEDS ORDERED: NITROGLYCERIN 0.4 MG SL TAB SL PRN (12:15)
[2021-10-20] MEDS: MAGNESIUM SULFATE 1GM/100ML 100 ML IV SCH ×2 (12:17→13:51)
[2021-10-20] MEDS ORDERED: HYDROcodone-ACET 5/325MG TAB PO PRN (14:45)
[2021-10-20] MEDS ORDERED: DOCUSATE SOD 100 MG CAP PO PRN (14:45)
[2021-10-20] MEDS ORDERED: hydrALAZINE HCL 20 MG/ML VL IV PRN (14:45)
[2021-10-20] MEDS ORDERED: ACETAMINOPHEN 325 MG TAB PO PRN (14:45)
[2021-10-20 15:29] VITALS: BP 119/47
[2021-10-20] MEDS ORDERED: levoFLOXacin 500MG 100 ML IV ONE (15:30)
[2021-10-20 17:00] VITALS: BP 127/66
[2021-10-20] MEDS: SUCRALFATE 1 GM/10 ML ORAL SUSP PO SCH ×2 (17:46→21:42)
[2021-10-20 18:17] LABS: INR 0.99 (0.9-1.15); Partial Thromboplastin Time 25.9 sec (23.6-33.0)
[2021-10-20 18:26] LABS: Magnesium 2.6 mg/dL (1.6-2.6); Phosphorus 2.3 mg/dL (2.5-4.90)
[2021-10-20] MEDS: BUDESONIDE (INHALATION) 0.5 MG/2 ML NEB NEB SCH (20:02)
[2021-10-20] MEDS: IPRATROPIUM BROM 0.5 MG/2.5ML INH SOL NEB SCH ×2 (20:02→22:05)
[2021-10-20] MEDS: methylPREDNISolone SOD SUCC 40 MG/ML VL IV SCH (20:44)
[2021-10-20] MEDS: MONTELUKAST SODIUM 10 MG TAB PO SCH (20:45)
[2021-10-20] MEDS: ATORVASTATIN 20 MG TAB PO SCH (21:43)
[2021-10-20] MEDS: LORazepam 0.5 MG TAB PO PRN (21:43)
[2021-10-20 22:00] VITALS: BP 118/60
[2021-10-20] MEDS: ALBUTEROL SULF 2.5 MG/0.5ML(0.5%) NEB SOLN NEB PRN (23:25)
[2021-10-21] MEDS ORDERED: TEMAZEPAM 15 MG CAP PO ONE (00:45)
[2021-10-21 01:21] LABS: Alcohol, Urine < 3.0 mg/dL (0-10); Amphetamine Screen, Urine NEGATIVE (NEGATIVE); Barbiturate Scree,Urine NEGATIVE (NEGATIVE); Benzodiazephine Screen, Urine NEGATIVE (NEGATIVE); Cannabinoid Screen, Urine NEGATIVE (NEGATIVE); Cocaine Screen, Urine NEGATIVE (NEGATIVE); Phencyclidine Screen, Urine NEGATIVE (NEGATIVE)
[2021-10-21 01:33] LABS: Opiate Scree,Urine NEGATIVE (NEGATIVE)
[2021-10-21 01:34] LABS: Urine Bacteria MOD /hpf (None Seen); Urine Blood Negative /uL (Negative); Urine Specific Gravity 1.016 (1.001-1.035); Urine WBC 9 /hpf (0 - 5)
[2021-10-21 02:14] LABS: Protein, Urine 10.4 mg/dL (0.0-11.9)
[2021-10-21] MEDS: IPRATROPIUM BROM 0.5 MG/2.5ML INH SOL NEB SCH ×6 (02:55→23:44)
[2021-10-21] MEDS: ALBUTEROL SULF 2.5 MG/0.5ML(0.5%) NEB SOLN NEB PRN ×4 (04:10→23:44)
[2021-10-21 05:00] VITALS: BP 106/53
[2021-10-21] MEDS: methylPREDNISolone SOD SUCC 40 MG/ML VL IV SCH (05:30)
[2021-10-21] MEDS: SUCRALFATE 1 GM/10 ML ORAL SUSP PO SCH ×4 (05:30→21:36)
[2021-10-21 06:16] LABS: Basophils # (auto) 0 10 ^3/uL (0-0.2); Basophils % (auto) 0.2 % (0.0-2.0); Eosinophils # (auto) 0 10 ^3/uL (0-0.8); Hematocrit 33.7 % (36.0-46.0); Hemoglobin 11.2 g/dL (12.2-16.2); Lymphocytes # (auto) 0.6 10 ^3/uL (0.4-5.4); Lymphocytes % (auto) 12.3 % (10.0-50.0); Mean Corpuscular Hemoglobin 30.2 pg (28.0-32.0); Mean Corpuscular Hgb Conc. 33.2 g/dL (32.0-36.0); Mean Corpuscular Volume 90.9 fL (80.0-100.0); Monocytes # (auto) 0.1 10 ^3/uL (0-1.3); Monocytes % (auto) 2.1 % (0.0-12.0); Neutrophils # (auto) 4.3 10 ^3/uL (1.6-8.6); Neutrophils % (auto) 85.4 % (37.0-80.0); Nucleated Red Blood Cells % 0.1 %; Red Blood Cells 3.71 10^6/uL (4.0-5.20); Red Cell Distribution Width 14.1 % (11.8-14.3)
[2021-10-21] MEDS: BUDESONIDE (INHALATION) 0.5 MG/2 ML NEB NEB SCH ×2 (06:16→18:23)
[2021-10-21 06:25] LABS: Potassium 4.1 mmol/L (3.5-5.1)
[2021-10-21 06:30] LABS: INR 1.02 (0.9-1.15); Partial Thromboplastin Time 26.2 sec (23.6-33.0)
[2021-10-21 06:37] LABS: Albumin 3.2 g/dL (3.4-5.0); BUN/Creatinine Ratio 23.4; Bilirubin, Total 0.3 mg/dL (0.2-1.0); CRP High Sensitivity 0.23 mg/dL (< 0.3); Calcium 8.8 mg/dL (8.5-10.1); Magnesium 2.4 mg/dL (1.6-2.6); Phosphorus 2.4 mg/dL (2.5-4.90); Uric Acid 5.7 mg/dL (2.6-6.0)
[2021-10-21 07:06] LABS: Thyroid Stimulating Hormone 0.37 uIU/mL (0.358-3.74)
[2021-10-21 09:00] VITALS: BP 115/73
[2021-10-21] MEDS ORDERED: FAMOTIDINE (10MG/ML) 2ML VL IV SCH (10:00)
[2021-10-21] MEDS ORDERED: levoFLOXacin 500MG 100 ML IV SCH (10:00)
[2021-10-21] MEDS: ASPirin 81 mg TAB PO SCH (10:01)
[2021-10-21] MEDS: ENOXAPARIN SOD 40 MG/0.4 ML SYRINGE SC SCH (10:02)
[2021-10-21 13:00] VITALS: BP_SYST 108; BP_SYST 131; BP_DIAS 53; BP_DIAS 57
[2021-10-21 17:00] VITALS: BP 123/63
[2021-10-21 20:00] VITALS: BP 117/60
[2021-10-21] MEDS: ONDANSETRON HCL 4 MG/2 ML VIAL IV PRN ×2 (20:52→21:44)
[2021-10-21] MEDS: MONTELUKAST SODIUM 10 MG TAB PO SCH (21:35)
[2021-10-21] MEDS: ATORVASTATIN 20 MG TAB PO SCH (21:35)
[2021-10-21] MEDS: LORazepam 0.5 MG TAB PO PRN (21:37)
[2021-10-21] MEDS ORDERED: methylPREDNISolone SOD SUCC 40 MG/ML VL IV SCH (22:00)
[2021-10-21 22:07] VITALS: BP 117/66
[2021-10-22] MEDS: IPRATROPIUM BROM 0.5 MG/2.5ML INH SOL NEB SCH ×5 (02:50→19:36)
[2021-10-22] MEDS: ALBUTEROL SULF 2.5 MG/0.5ML(0.5%) NEB SOLN NEB PRN ×4 (03:46→22:43)
[2021-10-22 04:57] VITALS: BP 112/63
[2021-10-22 05:33] LABS: Basophils # (auto) 0 10 ^3/uL (0-0.2); Eosinophils # (auto) 0 10 ^3/uL (0-0.8); Hematocrit 33.2 % (36.0-46.0); Hemoglobin 11.1 g/dL (12.2-16.2); Lymphocytes # (auto) 0.3 10 ^3/uL (0.4-5.4); Lymphocytes % (auto) 3.9 % (10.0-50.0); Mean Corpuscular Hemoglobin 30.2 pg (28.0-32.0); Mean Corpuscular Hgb Conc. 33.4 g/dL (32.0-36.0); Mean Corpuscular Volume 90.4 fL (80.0-100.0); Monocytes # (auto) 0.2 10 ^3/uL (0-1.3); Monocytes % (auto) 2.3 % (0.0-12.0); Neutrophils % (auto) 93.8 % (37.0-80.0); Red Blood Cells 3.67 10^6/uL (4.0-5.20); Red Cell Distribution Width 14.4 % (11.8-14.3); White Blood Cell 8.5 10^3/uL (4.4-10.8)
[2021-10-22 06:17] LABS: Potassium 4.2 mmol/L (3.5-5.1)
[2021-10-22 06:32] LABS: BUN/Creatinine Ratio 32.5; Calcium 9.2 mg/dL (8.5-10.1)
[2021-10-22] MEDS: BUDESONIDE (INHALATION) 0.5 MG/2 ML NEB NEB SCH ×2 (06:43→19:36)
[2021-10-22] MEDS: SUCRALFATE 1 GM/10 ML ORAL SUSP PO SCH ×4 (06:50→21:10)
[2021-10-22 08:00] VITALS: BP 116/65
[2021-10-22] MEDS: ASPirin 81 mg TAB PO SCH (11:12)
[2021-10-22] MEDS: levoFLOXacin 250MG 50 ML IV SCH (11:12)
[2021-10-22] MEDS: ENOXAPARIN SOD 40 MG/0.4 ML SYRINGE SC SCH (11:12)
[2021-10-22 12:00] VITALS: BP 97/56
[2021-10-22] MEDS: LEVALBUTEROL HCL 1.25 MG/3 ML NEB NEB SCH ×2 (14:31→19:36)
[2021-10-22 16:00] VITALS: BP 127/67
[2021-10-22 20:00] VITALS: BP 117/60
[2021-10-22] MEDS: guaiFENesin-DM 100/10mg/5ml SYR PO PRN (20:41)
[2021-10-22] MEDS: methylPREDNISolone SOD SUCC 40 MG/ML VL IV SCH (21:10)
[2021-10-22] MEDS: ATORVASTATIN 20 MG TAB PO SCH (21:11)
[2021-10-22] MEDS: MONTELUKAST SODIUM 10 MG TAB PO SCH (21:11)
[2021-10-22 21:42] VITALS: BP 122/71
[2021-10-22] MEDS: TEMAZEPAM 15 MG CAP PO PRN (22:56)
[2021-10-23] MEDS: IPRATROPIUM BROM 0.5 MG/2.5ML INH SOL NEB SCH ×4 (00:18→18:56)
[2021-10-23] MEDS: LEVALBUTEROL HCL 1.25 MG/3 ML NEB NEB SCH ×4 (00:18→18:56)
[2021-10-23 05:07] VITALS: BP 124/72
[2021-10-23] MEDS: BUDESONIDE (INHALATION) 0.5 MG/2 ML NEB NEB SCH ×2 (06:14→18:56)
[2021-10-23] MEDS: SUCRALFATE 1 GM/10 ML ORAL SUSP PO SCH ×4 (06:24→21:43)
[2021-10-23 09:00] VITALS: BP 120/66
[2021-10-23] MEDS ORDERED: FAMOTIDINE (10MG/ML) 2ML VL IV SCH (10:00)
[2021-10-23] MEDS: levoFLOXacin 250MG 50 ML IV SCH (10:09)
[2021-10-23] MEDS: methylPREDNISolone SOD SUCC 40 MG/ML VL IV SCH ×2 (10:09→21:43)
[2021-10-23] MEDS: ASPirin 81 mg TAB PO SCH (10:10)
[2021-10-23] MEDS: ENOXAPARIN SOD 40 MG/0.4 ML SYRINGE SC SCH (10:10)
[2021-10-23 14:00] VITALS: BP 135/61
[2021-10-23 17:00] VITALS: BP 140/65
[2021-10-23] MEDS: guaiFENesin-DM 100/10mg/5ml SYR PO PRN (18:50)
[2021-10-23] MEDS: LORazepam 0.5 MG TAB PO PRN (18:50)
[2021-10-23] MEDS: ALBUTEROL SULF 2.5 MG/0.5ML(0.5%) NEB SOLN NEB PRN (18:56)
[2021-10-23] MEDS: MONTELUKAST SODIUM 10 MG TAB PO SCH (21:44)
[2021-10-23] MEDS: ATORVASTATIN 20 MG TAB PO SCH (21:44)
[2021-10-23] MEDS: TEMAZEPAM 15 MG CAP PO PRN (21:44)
[2021-10-23 22:00] VITALS: BP 133/74
[2021-10-24] MEDS: IPRATROPIUM BROM 0.5 MG/2.5ML INH SOL NEB SCH ×3 (00:46→11:38)
[2021-10-24] MEDS: LEVALBUTEROL HCL 1.25 MG/3 ML NEB NEB SCH ×3 (00:46→11:38)
[2021-10-24 02:26] VITALS: BP 133/74
[2021-10-24 05:00] VITALS: BP 136/53
[2021-10-24 05:48] LABS: Basophils # (auto) 0 10 ^3/uL (0-0.2); Eosinophils # (auto) 0 10 ^3/uL (0-0.8); Hematocrit 32.1 % (36.0-46.0); Hemoglobin 10.8 g/dL (12.2-16.2); Lymphocytes # (auto) 0.7 10 ^3/uL (0.4-5.4); Lymphocytes % (auto) 8.9 % (10.0-50.0); Mean Corpuscular Hemoglobin 30.4 pg (28.0-32.0); Mean Corpuscular Hgb Conc. 33.8 g/dL (32.0-36.0); Mean Corpuscular Volume 89.8 fL (80.0-100.0); Monocytes # (auto) 0.3 10 ^3/uL (0-1.3); Monocytes % (auto) 4.1 % (0.0-12.0); Neutrophils # (auto) 6.5 10 ^3/uL (1.6-8.6); Red Blood Cells 3.57 10^6/uL (4.0-5.20); Red Cell Distribution Width 13.6 % (11.8-14.3); White Blood Cell 7.5 10^3/uL (4.4-10.8)
[2021-10-24] MEDS: SUCRALFATE 1 GM/10 ML ORAL SUSP PO SCH ×2 (06:30→10:22)
[2021-10-24 06:33] LABS: Potassium 3.7 mmol/L (3.5-5.1)
[2021-10-24 06:37] LABS: BUN/Creatinine Ratio 31.7; Calcium 9.1 mg/dL (8.5-10.1)
[2021-10-24] MEDS: BUDESONIDE (INHALATION) 0.5 MG/2 ML NEB NEB SCH (06:45)
[2021-10-24 08:00] VITALS: BP 138/95
[2021-10-24] MEDS: ASPirin 81 mg TAB PO SCH (10:00)
[2021-10-24] MEDS: levoFLOXacin 250MG 50 ML IV SCH (10:00)
[2021-10-24] MEDS: methylPREDNISolone SOD SUCC 40 MG/ML VL IV SCH (10:00)
[2021-10-24] MEDS: ENOXAPARIN SOD 40 MG/0.4 ML SYRINGE SC SCH (10:01)
[2021-10-24] MEDS ORDERED: PRED20TA2 PO (10:28)
== END 2021-10-24 12:20 | disposition home or self-care (01) | DRG 189 ==
LOC: ER 04:38 → OVERFLOW 12:11 → EAST 16:36
PROVIDERS: ADMIT Hospitalist; ATTEND Internal Medicine Pulmonary Disease
DX: J96.21 Acute and chronic respiratory failure with hypoxia (principal); M35.1 Other overlap syndromes; J44.1 Chronic obstructive pulmonary disease with (acute) exacerbation; F32.9 Major depressive disorder, single episode, unspecified; E78.5 Hyperlipidemia, unspecified; F41.9 Anxiety disorder, unspecified; J43.9 Emphysema, unspecified; Z20.822 Contact with and (suspected) exposure to COVID-19; K21.9 Gastro-esophageal reflux disease without esophagitis; K29.70 Gastritis, unspecified, without bleeding; Z79.52 Long term (current) use of systemic steroids; Z83.3 Family history of diabetes mellitus; Z79.899 Other long term (current) drug therapy; Z80.0 Family history of malignant neoplasm of digestive organs
CPT/HCPCS: 36415; 71045; 80048; 80053; 80061; 80307; 81001; 82550; 82728; 83036; 83615; 83690; 83735; 83880; 84100; 84156; 84443; 84484; 84550; 85007; 85025; 85027; 85379; 85610; 85652; 85730; 86141; 87040; 87086; 87205; 93005; 94640; 96365; 96367; 96372; G0378; J1956; J2405; J3490

== ENCOUNTER → 2022-10-12 | Outpatient (CLI) | payer MEDICARE, BC ==
[~2022-10-12] MED LIST changes: -LEVO500T31 PO; -PRED10TA PO
[2022-10-12 07:40] LABS: Basophils # (auto) 0 10 ^3/uL (0-0.2); Eosinophils # (auto) 0 10 ^3/uL (0-0.8); Hemoglobin 9.5 g/dL (12.2-16.2); Lymphocytes # (auto) 1.6 10 ^3/uL (0.4-5.4); Neutrophils # (auto) 1.4 10 ^3/uL (1.6-8.6); White Blood Cell 3.4 10^3/uL (4.4-10.8)
[2022-10-12 07:42] LABS: Basophils % (auto) 1.1 % (0.0-2.0); Hematocrit 29.7 % (36.0-46.0); Lymphocytes % (auto) 47.9 % (10.0-50.0); Monocytes # (auto) 0.3 10 ^3/uL (0-1.3); Monocytes % (auto) 10.3 % (0.0-12.0); Neutrophils % (auto) 40.7 % (37.0-80.0); Nucleated Red Blood Cells % 0.1 %; Red Cell Distribution Width 17.8 % (11.8-14.3)
[2022-10-12 07:57] LABS: Urine Bacteria NONE SEEN /hpf (None Seen); Urine Blood Negative /uL (Negative); Urine Specific Gravity 1.018 (1.001-1.035); Urine WBC 6 /hpf (0 - 5)
[2022-10-12 08:01] LABS: Albumin 3.4 g/dL (3.4-5.0); Calcium 9.4 mg/dL (8.5-10.1)
[2022-10-12 08:05] LABS: BUN/Creatinine Ratio 17.1 (10.0-20.0); Bilirubin, Total 0.6 mg/dL (0.2-1.0); Total Protein 6.3 g/dL (6.4-8.2)
== END | disposition home or self-care (01) ==
LOC: LAB 07:22
PROVIDERS: ATTEND Internal Medicine
DX: Z12.11 Encounter for screening for malignant neoplasm of colon (principal); J44.9 Chronic obstructive pulmonary disease, unspecified; D64.9 Anemia, unspecified; E11.9 Type 2 diabetes mellitus without complications
CPT/HCPCS: 36415; 80053; 80061; 81001; 84443; 85025

== ENCOUNTER → 2022-10-16 | Outpatient (CLI) | payer MEDICARE, BC | END | disposition home or self-care (01) | LOC: LAB 14:06 | PROVIDERS: ATTEND Internal Medicine | DX: Z12.11 Encounter for screening for malignant neoplasm of colon (principal); J44.9 Chronic obstructive pulmonary disease, unspecified; D64.9 Anemia, unspecified | CPT/HCPCS: 82270 ==

== ENCOUNTER → 2022-12-25 | Outpatient (CLI) | payer MEDICARE, BC ==
[~2022-12-25] MED LIST changes: +FOLI-119 PO; -FOLI1TAB6 PO; +GABA-1250 PO; -GABA300C10 PO; +TIZA-326 PO; -TIZA2TAB4 PO; +TRAZ-228 PO; -TRAZ100T3 PO
== END | disposition home or self-care (01) ==
LOC: LAB 13:26
PROVIDERS: ATTEND Internal Medicine
DX: Z12.11 Encounter for screening for malignant neoplasm of colon (principal); R06.02 Shortness of breath
CPT/HCPCS: 83880

== ENCOUNTER → 2023-01-16 | Outpatient (CLI) | payer MEDICARE, BC | END | disposition home or self-care (01) | LOC: XYW 14:30 | PROVIDERS: ATTEND Internal Medicine | DX: I07.1 Rheumatic tricuspid insufficiency (principal); R06.02 Shortness of breath | CPT/HCPCS: 93306 ==

== ENCOUNTER → 2023-05-07 | Outpatient (CLI) | payer MEDICARE, BC ==
[2023-05-07 12:24] LABS: Basophils # (auto) 0 10 ^3/uL (0-0.2); Basophils % (auto) 0.4 % (0.0-2.0); Eosinophils # (auto) 0 10 ^3/uL (0-0.8); Hematocrit 38.1 % (36.0-46.0); Hemoglobin 12.6 g/dL (12.2-16.2); Lymphocytes # (auto) 1.2 10 ^3/uL (0.4-5.4); Lymphocytes % (auto) 24.2 % (10.0-50.0); Mean Corpuscular Hemoglobin 29.2 pg (28.0-32.0); Mean Corpuscular Hgb Conc. 33.1 g/dL (32.0-36.0); Mean Corpuscular Volume 88.2 fL (80.0-100.0); Monocytes # (auto) 0.3 10 ^3/uL (0-1.3); Monocytes % (auto) 6.9 % (0.0-12.0); Neutrophils # (auto) 3.3 10 ^3/uL (1.6-8.6); Neutrophils % (auto) 68.5 % (37.0-80.0); Nucleated Red Blood Cells % 0.1 %; Red Blood Cells 4.32 10^6/uL (4.0-5.20); White Blood Cell 4.8 10^3/uL (4.4-10.8)
[2023-05-07 12:25] LABS: Red Cell Distribution Width 24.5 % (11.8-14.3)
[2023-05-07 13:56] LABS: Alanine Aminotransferase 16 U/L (7-40); Albumin 4.2 g/dL (3.2-4.8); Alkaline Phosphatase 68 U/L (46-116); Anion Gap 5 (5-15); Aspartate Aminotransferase 18 U/L (13-40); BUN/Creatinine Ratio 18.2 (10.0-20.0); Bilirubin, Total 0.4 mg/dL (0.2-1.0); Blood Urea Nitrogen 14 mg/dL (9-23); Calcium 9.2 mg/dL (8.7-10.4); Carbon Dioxide 29 mmol/L (20-30); Chloride 103 mmol/L (98-107); Glucose 91 mg/dL (74-106); Potassium 3.9 mmol/L (3.5-5.1); Sodium 137 mmol/L (136-145); Total Protein 6.2 g/dL (5.7-8.2)
[2023-05-07 14:09] LABS: % Iron Saturation 46.8 % (15-50)
== END | disposition home or self-care (01) ==
LOC: LAB 12:02
PROVIDERS: ATTEND Internal Medicine
DX: D64.9 Anemia, unspecified (principal)
CPT/HCPCS: 36415; 80053; 83540; 83550; 85025

== ENCOUNTER → 2023-06-11 | Outpatient (CLI) | payer MEDICARE, BC | END | disposition home or self-care (01) | LOC: LAB 16:34 | PROVIDERS: ATTEND Internal Medicine | DX: N39.0 Urinary tract infection, site not specified (principal) | CPT/HCPCS: 87086; 87088; 87186 ==

== ENCOUNTER → 2023-08-07 | Outpatient (CLI) | payer MEDICARE, BC ==
[2023-08-07 15:37] LABS: Urine Bacteria NONE SEEN /hpf (None Seen); Urine Blood Negative /uL (Negative); Urine Clarity Clear (Clear); Urine Color Yellow (Yellow); Urine Mucus FEW (None Seen); Urine Protein, UAD Negative (Negative); Urine Specific Gravity 1.022 (1.001-1.035); Urine Urobilinogen Normal (Negative); Urine WBC 3 /hpf (0 - 5)
[2023-08-07 15:40] LABS: Basophils # (auto) 0 10 ^3/uL (0-0.2); Basophils % (auto) 0.4 % (0.0-2.0); Eosinophils # (auto) 0 10 ^3/uL (0-0.8); Hematocrit 41.2 % (36.0-46.0); Hemoglobin 13.8 g/dL (12.2-16.2); Lymphocytes # (auto) 1.5 10 ^3/uL (0.4-5.4); Lymphocytes % (auto) 30.2 % (10.0-50.0); Mean Corpuscular Hgb Conc. 33.6 g/dL (32.0-36.0); Mean Corpuscular Volume 98.5 fL (80.0-100.0); Monocytes # (auto) 0.5 10 ^3/uL (0-1.3); Monocytes % (auto) 9.8 % (0.0-12.0); Neutrophils % (auto) 59.6 % (37.0-80.0); Nucleated Red Blood Cells % 0.1 %; Red Blood Cells 4.18 10^6/uL (4.0-5.20); Red Cell Distribution Width 13.7 % (11.8-14.3); White Blood Cell 5.1 10^3/uL (4.4-10.8)
[2023-08-07 16:45] LABS: Chloride 100 mmol/L (98-107); Potassium 4.1 mmol/L (3.5-5.1); Sodium 132 mmol/L (136-145)
[2023-08-07 16:46] LABS: Anion Gap 4 (5-15); Calcium 9.6 mg/dL (8.5-10.1); Carbon Dioxide 28 mmol/L (20-30)
[2023-08-07 16:50] LABS: Creatinine, Urine 137.03 mg/dL (30.0-125.0)
[2023-08-07 16:51] LABS: BUN/Creatinine Ratio 15.6 (10.0-20.0); Blood Urea Nitrogen 10 mg/dL (9-23); Glucose 77 mg/dL (74-106)
== END | disposition home or self-care (01) ==
LOC: LAB 14:51
PROVIDERS: ATTEND Internal Medicine
DX: J44.9 Chronic obstructive pulmonary disease, unspecified (principal); K73.0 Chronic persistent hepatitis, not elsewhere classified; F03.90 Unspecified dementia, unspecified severity, without behavioral disturbance, psychotic disturbance, mood disturbance, and anxiety
CPT/HCPCS: 36415; 80048; 81001; 82043; 82570; 85025

== ENCOUNTER → 2023-10-15 | Outpatient (CLI) | payer MEDICARE, BC ==
[~2023-10-15] MED LIST changes: -TIZA-326 PO; +TIZA1TAB20 PO
[2023-10-15 10:45] LABS: Folate (Folic Acid) 32.49 ng/mL (>5.38)
== END | disposition home or self-care (01) ==
LOC: LAB 07:13
PROVIDERS: ATTEND Internal Medicine
DX: J44.9 Chronic obstructive pulmonary disease, unspecified (principal); K57.90 Diverticulosis of intestine, part unspecified, without perforation or abscess without bleeding; R73.03 Prediabetes; I67.82 Cerebral ischemia; G30.9 Alzheimer's disease, unspecified; E55.9 Vitamin D deficiency, unspecified
CPT/HCPCS: 36415; 82306; 82607; 82746; 83036; 84443

== ENCOUNTER → 2024-01-14 | Outpatient (CLI) | payer MEDICARE, BC ==
[2024-01-14 08:20] LABS: Anion Gap 2 (5-15); Carbon Dioxide 30 mmol/L (20-30); Chloride 101 mmol/L (98-107); Potassium 4.6 mmol/L (3.5-5.1); Sodium 133 mmol/L (136-145)
[2024-01-14 08:22] LABS: Calcium 9.8 mg/dL (8.7-10.4)
[2024-01-14 08:26] LABS: BUN/Creatinine Ratio 14.5 (10.0-20.0); Blood Urea Nitrogen 10 mg/dL (9-23); Glucose 89 mg/dL (74-106)
[2024-01-14 08:59] LABS: Uric Acid 4.1 mg/dL (3.1-7.8)
[2024-01-14 10:12] LABS: Erythrocyte Sedimentation Rate 8 mm/hr (0-20)
== END | disposition home or self-care (01) ==
LOC: LAB 07:18
PROVIDERS: ATTEND Internal Medicine
DX: M79.642 Pain in left hand (principal); M85.80 Other specified disorders of bone density and structure, unspecified site
CPT/HCPCS: 36415; 80048; 84550; 85652; 86431

== ENCOUNTER 2024-01-29 15:12 | Inpatient (IN) | payer MEDICARE, BC ==
[~2024-01-29] VITALS: Ht 160 cm; Wt 69.3 kg
[2024-01-29 16:22] LABS: Basophils # (auto) 0 10 ^3/uL (0-0.2); Basophils % (auto) 0.7 % (0.0-2.0); Eosinophils # (auto) 0 10 ^3/uL (0-0.8); Hemoglobin 15.3 g/dL (12.2-16.2); Lymphocytes # (auto) 1.2 10 ^3/uL (0.4-5.4); Lymphocytes % (auto) 22.5 % (10.0-50.0); Mean Corpuscular Hemoglobin 33.1 pg (28.0-32.0); Mean Corpuscular Hgb Conc. 34.8 g/dL (32.0-36.0); Mean Corpuscular Volume 95.1 fL (80.0-100.0); Monocytes # (auto) 0.5 10 ^3/uL (0-1.3); Monocytes % (auto) 8.9 % (0.0-12.0); Neutrophils # (auto) 3.6 10 ^3/uL (1.6-8.6); Neutrophils % (auto) 67.9 % (37.0-80.0); Nucleated Red Blood Cells % 0.1 %; Red Blood Cells 4.63 10^6/uL (4.0-5.20); Red Cell Distribution Width 12.8 % (11.8-14.3); White Blood Cell 5.3 10^3/uL (4.4-10.8)
[2024-01-29 16:32] VITALS: PULSE 64; RESP 18; O2SAT 100
[2024-01-29 16:44] LABS: Chloride 92 mmol/L (98-107)
[2024-01-29 16:45] LABS: Carbon Dioxide 26 mmol/L (20-30)
[2024-01-29 16:46] LABS: Calcium 9.8 mg/dL (8.7-10.4)
[2024-01-29 16:50] LABS: Blood Urea Nitrogen 12 mg/dL (9-23); Glucose 90 mg/dL (74-106)
[2024-01-29 16:52] LABS: Anion Gap 8 (5-15); Sodium 126 mmol/L (136-145)
[2024-01-29] MEDS: ONDANSETRON HCL 4 MG/2 ML VIAL IV ONE (17:41)
[2024-01-29] MEDS: SODIUM CHLORIDE 0.9% 1,000 ML IVB ONE (17:44)
[2024-01-29] MEDS ORDERED: ALBUTEROL SULF 2.5 MG/0.5ML(0.5%) NEB SOLN NEB PRN (18:15)
[2024-01-29] MEDS ORDERED: IPRATROPIUM BROM 0.5 MG/2.5ML INH SOL NEB PRN (18:15)
[2024-01-29] MEDS ORDERED: DOCUSATE SOD 100 MG CAP PO PRN (18:30)
[2024-01-29] MEDS ORDERED: SENNA 8.6 MG TAB PO PRN (18:30)
[2024-01-29] MEDS: cefTRIAXone 1GM/50ML D5W 50 ML IV SCH (18:34)
[2024-01-29] MEDS: SODIUM CHLORIDE 0.9% 1,000 ML IV ONE (18:34)
[2024-01-29 18:44] VITALS: O2SAT 98
[2024-01-29 18:46] LABS: Urine Bacteria FEW /hpf (None Seen); Urine Blood TRACE /uL (Negative); Urine Clarity Clear (Clear); Urine Color Yellow (Yellow); Urine Mucus FEW (None Seen); Urine Protein, UAD Negative (Negative); Urine Specific Gravity 1.014 (1.001-1.035); Urine Urobilinogen Normal (Negative); Urine WBC 4 /hpf (0 - 5)
[2024-01-29 20:00] VITALS: PULSE 66; RESP 12; O2SAT 97
[2024-01-29] MEDS: HYDROmorphone HCL 2 MG/ML VL/or syr IV PRN (21:08)
[2024-01-29] MEDS: ONDANSETRON HCL 4 MG/2 ML VIAL IV PRN (21:08)
[2024-01-29] MEDS: SODIUM CHLOR 0.9% PF (SALINE LOCK) 10ML VIAL/SYR IV SCH (22:00)
[2024-01-29] MEDS: BUDESONIDE PO SCH (22:00)
[2024-01-29] MEDS: [UNRECOGNIZED DRUG - OTHER] PO SCH (22:00)
[2024-01-29] MEDS: GABAPENTIN 300 MG CAP PO SCH (22:00)
[2024-01-29] MEDS: TIZANIDINE HYDROCHLORIDE 2 MG PO SCH (22:00)
[2024-01-29 23:30] VITALS: BP 130/49; PULSE 75; RESP 13; TEMP 98.1; O2SAT 97
[2024-01-30 01:08] VITALS: BP 140/72; PULSE 93; RESP 17; TEMP 97.5; O2SAT 95
[2024-01-30 08:00] VITALS: PULSE 70; RESP 18; O2SAT 0
[2024-01-30] MEDS: SODIUM CHLORIDE 0.9% 1,000 ML IV SCH (08:50)
[2024-01-30 09:00] VITALS: BP 124/60; PULSE 78; RESP 18; TEMP 97.6; O2SAT 92
[2024-01-30 10:00] LABS: Basophils # (auto) 0 10 ^3/uL (0-0.2); Basophils % (auto) 0.7 % (0.0-2.0); Eosinophils # (auto) 0 10 ^3/uL (0-0.8); Hematocrit 42.7 % (36.0-46.0); Hemoglobin 14.9 g/dL (12.2-16.2); Lymphocytes # (auto) 0.9 10 ^3/uL (0.4-5.4); Lymphocytes % (auto) 16.7 % (10.0-50.0); Mean Corpuscular Hemoglobin 33.3 pg (28.0-32.0); Mean Corpuscular Hgb Conc. 34.8 g/dL (32.0-36.0); Mean Corpuscular Volume 95.7 fL (80.0-100.0); Monocytes # (auto) 0.4 10 ^3/uL (0-1.3); Monocytes % (auto) 8.2 % (0.0-12.0); Neutrophils # (auto) 3.8 10 ^3/uL (1.6-8.6); Neutrophils % (auto) 74.4 % (37.0-80.0); Red Blood Cells 4.46 10^6/uL (4.0-5.20); White Blood Cell 5.1 10^3/uL (4.4-10.8)
[2024-01-30] MEDS: CHOLECALCIFEROL (VITD3) 1,000UNIT=25mCg TAB PO SCH (10:00)
[2024-01-30 10:09] LABS: Alanine Aminotransferase 18 U/L (7-40); Albumin 4.4 g/dL (3.2-4.8); Alkaline Phosphatase 92 U/L (46-116); Anion Gap 9 (5-15); Aspartate Aminotransferase 19 U/L (13-40); BUN/Creatinine Ratio 11.7 (10.0-20.0); Bilirubin, Total 0.8 mg/dL (0.2-1.0); Blood Urea Nitrogen 7 mg/dL (9-23); Calcium 9.5 mg/dL (8.7-10.4); Carbon Dioxide 26 mmol/L (20-30); Chloride 98 mmol/L (98-107); Glucose 65 mg/dL (74-106); Total Protein 6.5 g/dL (5.7-8.2)
[2024-01-30 10:20] LABS: Sodium 133 mmol/L (136-145)
[2024-01-30] MEDS: ENOXAPARIN SOD 40 MG/0.4 ML SYRINGE SC SCH (10:47)
[2024-01-30] MEDS: ASCORBIC ACID 500 MG TAB PO SCH (10:48)
[2024-01-30] MEDS: PANTOPRAZOLE 40 MG TAB PO SCH (10:49)
[2024-01-30] MEDS: FERROUS SULFATE 325mg EC TAB PO SCH (10:49)
[2024-01-30] MEDS: SUCRALFATE 1 GM TAB PO SCH (10:49)
[2024-01-30] MEDS: busPIRone HCL 10 MG TAB PO SCH (10:49)
[2024-01-30] MEDS: CHOLECALCIFEROL (VITD3) 1,000UNIT=25mCg TAB PO ONE (11:30)
[2024-01-30 13:00] VITALS: BP 130/55; PULSE 70; RESP 18; TEMP 97.7; O2SAT 95
[2024-01-30 14:41] VITALS: O2SAT 95
[2024-01-30] MEDS: HYDROcodone-ACET 5/325MG TAB PO PRN (14:55)
[2024-01-30] MEDS: POTASSIUM CHL 20 Meq TABLET PO ONE (14:55)
[2024-01-30 17:00] VITALS: BP 135/50; PULSE 71; RESP 18; TEMP 97.5; O2SAT 94
[2024-01-30] MEDS ORDERED: traZODone HCL 50 MG TAB PO SCH ×2 (18:00→21:00)
[2024-01-30] MEDS: CITALOPRAM HYDROBR 20 MG TAB PO ONE (19:30)
[2024-01-30] MEDS: D5W/SOD CHLO 0.9% 1,000 ML IV ONE (19:30)
[2024-01-30 20:06] LABS: Creatinine, Urine 29.75 mg/dL (30.0-125.0)
[2024-01-30] MEDS: MELATONIN 5 MG TAB PO SCH (21:06)
[2024-01-31] VITALS (11 sets, daily range): BP systolic 112–135; BP diastolic 61–68; PULSE 64–88; RESP 16–65; TEMP 97.5–98; O2SAT 94–98
[2024-01-31] MEDS: CITALOPRAM HYDROBR 20 MG TAB PO SCH (10:19)
[2024-01-31 11:08] LABS: Basophils # (auto) 0 10 ^3/uL (0-0.2); Basophils % (auto) 0.8 % (0.0-2.0); Eosinophils # (auto) 0 10 ^3/uL (0-0.8); Hemoglobin 14.6 g/dL (12.2-16.2); Lymphocytes # (auto) 1.1 10 ^3/uL (0.4-5.4); Lymphocytes % (auto) 24.1 % (10.0-50.0); Mean Corpuscular Hemoglobin 33.3 pg (28.0-32.0); Mean Corpuscular Hgb Conc. 34.8 g/dL (32.0-36.0); Mean Corpuscular Volume 95.7 fL (80.0-100.0); Monocytes # (auto) 0.3 10 ^3/uL (0-1.3); Monocytes % (auto) 7.5 % (0.0-12.0); Neutrophils % (auto) 67.6 % (37.0-80.0); Red Blood Cells 4.39 10^6/uL (4.0-5.20); Red Cell Distribution Width 12.6 % (11.8-14.3); White Blood Cell 4.4 10^3/uL (4.4-10.8)
[2024-01-31 11:16] LABS: Alanine Aminotransferase 20 U/L (7-40); Alkaline Phosphatase 86 U/L (46-116); Anion Gap 6 (5-15); Aspartate Aminotransferase 25 U/L (13-40); Calcium 9.1 mg/dL (8.7-10.4); Carbon Dioxide 24 mmol/L (20-30); Chloride 91 mmol/L (98-107); Glucose 78 mg/dL (74-106); Potassium 3.2 mmol/L (3.5-5.1)
[2024-01-31 11:17] LABS: Bilirubin, Total 1.2 mg/dL (0.2-1.0); Total Protein 6.2 g/dL (5.7-8.2)
[2024-01-31 11:22] LABS: BUN/Creatinine Ratio 9.3 (10.0-20.0); Blood Urea Nitrogen < 5 mg/dL (9-23); Sodium 121 mmol/L (136-145)
[2024-01-31 15:00] LABS: Folate (Folic Acid) > 24.00 ng/mL (>5.38)
[2024-01-31 16:49] LABS: Free T3 2.19 pg/mL (2.3-4.2)
[2024-01-31 16:50] LABS: Free T4 (Free Thyroxine) 1.46 ng/dL (0.89-1.76)
[2024-01-31] MEDS: POTASSIUM EFFERVESENT TAB 25 MEQ PO ONE (20:53)
[2024-02-01] VITALS (8 sets, daily range): BP systolic 110–131; BP diastolic 54–70; PULSE 64–94; RESP 16–20; TEMP 97.9–98.5; O2SAT 93–97
[2024-02-01 06:52] LABS: Basophils # (auto) 0 10 ^3/uL (0-0.2); Basophils % (auto) 0.4 % (0.0-2.0); Eosinophils # (auto) 0 10 ^3/uL (0-0.8); Hematocrit 36.5 % (36.0-46.0); Hemoglobin 13.1 g/dL (12.2-16.2); Lymphocytes % (auto) 26.1 % (10.0-50.0); Mean Corpuscular Hemoglobin 33.6 pg (28.0-32.0); Mean Corpuscular Hgb Conc. 35.9 g/dL (32.0-36.0); Mean Corpuscular Volume 93.6 fL (80.0-100.0); Monocytes # (auto) 0.4 10 ^3/uL (0-1.3); Monocytes % (auto) 10.2 % (0.0-12.0); Neutrophils # (auto) 2.4 10 ^3/uL (1.6-8.6); Neutrophils % (auto) 63.3 % (37.0-80.0); Nucleated Red Blood Cells % 0.1 %; Red Cell Distribution Width 12.6 % (11.8-14.3); White Blood Cell 3.7 10^3/uL (4.4-10.8)
[2024-02-01 07:05] LABS: Alanine Aminotransferase 15 U/L (7-40); Albumin 3.5 g/dL (3.2-4.8); Alkaline Phosphatase 70 U/L (46-116); Anion Gap 7 (5-15); Aspartate Aminotransferase 18 U/L (13-40); Calcium 8.6 mg/dL (8.7-10.4); Carbon Dioxide 26 mmol/L (20-30); Chloride 93 mmol/L (98-107); Glucose 67 mg/dL (74-106); Potassium 3.6 mmol/L (3.5-5.1); Sodium 126 mmol/L (136-145)
[2024-02-01 07:06] LABS: Total Protein 5.1 g/dL (5.7-8.2)
[2024-02-01 07:08] LABS: Blood Urea Nitrogen < 5 mg/dL (9-23)
[2024-02-01] MEDS: Ensure HIGH Protein Chocolate 8oz Bottle PO SCH (12:00)
[2024-02-01 15:32] LABS: Alanine Aminotransferase 18 U/L (7-40); Alkaline Phosphatase 73 U/L (46-116); Anion Gap 6 (5-15); Aspartate Aminotransferase 17 U/L (13-40); Calcium 8.7 mg/dL (8.7-10.4); Carbon Dioxide 24 mmol/L (20-30); Chloride 94 mmol/L (98-107); Glucose 92 mg/dL (74-106); Sodium 124 mmol/L (136-145)
[2024-02-01 15:33] LABS: Albumin 3.6 g/dL (3.2-4.8); Total Protein 5.7 g/dL (5.7-8.2)
[2024-02-01 15:35] LABS: BUN/Creatinine Ratio 10.6 (10.0-20.0); Blood Urea Nitrogen < 5 mg/dL (9-23)
[2024-02-01] MEDS ORDERED: POTASSIUM CHL 20 Meq TABLET PO STA ×2 (15:52→16:02)
[2024-02-01] MEDS ORDERED: CLINIMIX PER PHARMACY 0 ML IV SCH (16:30)
[2024-02-01 16:35] LABS: Basophils # (auto) 0 10 ^3/uL (0-0.2); Basophils % (auto) 0.6 % (0.0-2.0); Eosinophils # (auto) 0 10 ^3/uL (0-0.8); Hematocrit 37.6 % (36.0-46.0); Hemoglobin 13.3 g/dL (12.2-16.2); Lymphocytes # (auto) 1.1 10 ^3/uL (0.4-5.4); Lymphocytes % (auto) 25.7 % (10.0-50.0); Mean Corpuscular Hemoglobin 33.5 pg (28.0-32.0); Mean Corpuscular Hgb Conc. 35.5 g/dL (32.0-36.0); Mean Corpuscular Volume 94.4 fL (80.0-100.0); Monocytes # (auto) 0.4 10 ^3/uL (0-1.3); Monocytes % (auto) 8.5 % (0.0-12.0); Neutrophils # (auto) 2.8 10 ^3/uL (1.6-8.6); Neutrophils % (auto) 65.2 % (37.0-80.0); Nucleated Red Blood Cells % 0.2 %; Red Blood Cells 3.98 10^6/uL (4.0-5.20); Red Cell Distribution Width 12.8 % (11.8-14.3); White Blood Cell 4.4 10^3/uL (4.4-10.8)
[2024-02-01] MEDS: POTASSIUM EFFERVESENT TAB 25 MEQ PO STA (17:00)
[2024-02-01] MEDS ORDERED: DEXTROSE (50%) 50ML SYRG IV SCH (17:00)
[2024-02-01] MEDS: InsuLIN REG 1unit/0.01ml Soln (100units/ml) SC SCH (18:00)
[2024-02-01] MEDS: ACCU-CHEK COMFORT CURVE STRIP VI SCH (18:23)
[2024-02-01] MEDS ORDERED: ONDANSETRON ODT 4 MG TAB PO PRN (18:45)
[2024-02-01] MEDS: AMINO ACID INFUSION IN D10W 1,000 ML IV SCH (20:54)
[2024-02-02 05:00] VITALS: BP 122/63; PULSE 65; RESP 18; TEMP 98.2; O2SAT 95
[2024-02-02 07:42] LABS: Basophils # (auto) 0 10 ^3/uL (0-0.2); Basophils % (auto) 1.2 % (0.0-2.0); Eosinophils # (auto) 0 10 ^3/uL (0-0.8); Hematocrit 38.8 % (36.0-46.0); Hemoglobin 13.8 g/dL (12.2-16.2); Lymphocytes # (auto) 1.1 10 ^3/uL (0.4-5.4); Mean Corpuscular Hemoglobin 33.3 pg (28.0-32.0); Mean Corpuscular Hgb Conc. 35.5 g/dL (32.0-36.0); Mean Corpuscular Volume 93.8 fL (80.0-100.0); Monocytes # (auto) 0.4 10 ^3/uL (0-1.3); Monocytes % (auto) 10.6 % (0.0-12.0); Neutrophils # (auto) 2.4 10 ^3/uL (1.6-8.6); Neutrophils % (auto) 60.2 % (37.0-80.0); Nucleated Red Blood Cells % 0.1 %; Red Blood Cells 4.13 10^6/uL (4.0-5.20); Red Cell Distribution Width 12.6 % (11.8-14.3)
[2024-02-02 08:02] LABS: Alanine Aminotransferase 17 U/L (7-40); Albumin 3.7 g/dL (3.2-4.8); Alkaline Phosphatase 70 U/L (46-116); Anion Gap 6 (5-15); Aspartate Aminotransferase 14 U/L (13-40); BUN/Creatinine Ratio 12.2 (10.0-20.0); Bilirubin, Total 0.9 mg/dL (0.2-1.0); Blood Urea Nitrogen < 5 mg/dL (9-23); Calcium 9.2 mg/dL (8.7-10.4); Carbon Dioxide 29 mmol/L (20-30); Chloride 92 mmol/L (98-107); Glucose 113 mg/dL (74-106); Magnesium 1.7 mg/dL (1.6-2.6); Phosphorus 1.6 mg/dL (2.4-5.1); Potassium 3.2 mmol/L (3.5-5.1); Sodium 127 mmol/L (136-145); Total Protein 5.5 g/dL (5.7-8.2)
[2024-02-02 08:09] VITALS: BP 119/69; PULSE 61; RESP 18; TEMP 98.1; O2SAT 94
[2024-02-02] MEDS: ACETAMINOPHEN 325 MG TAB PO PRN (09:18)
[2024-02-02] MEDS ORDERED: POTASSIUM CHL 20 Meq TABLET PO ONE (09:30)
[2024-02-02] MEDS: POTASSIUM EFFERVESENT TAB 25 MEQ PO ONE (11:57)
[2024-02-02] MEDS: MAGNESIUM SULFATE 1GM/100ML 100 ML IV ONE (11:57)
[2024-02-02 12:00] VITALS: BP 136/75; PULSE 65; RESP 18; TEMP 97.8; O2SAT 95
[2024-02-02] MEDS: POTASSIUM PHOSPHATE 44 MEQ in D5W 5% 250 ML IV ONE (13:11)
[2024-02-02] MEDS ORDERED: CLINIMIX PER PHARMACY 0 ML IV SCH (13:30)
[2024-02-02 15:33] LABS: Potassium 3.9 mmol/L (3.5-5.1)
[2024-02-02 16:00] VITALS: BP 127/52; PULSE 62; RESP 18; TEMP 98; O2SAT 97
[2024-02-02 20:00] VITALS: PULSE 66
[2024-02-02] MEDS: AMINO ACID INFUSION IN D10W 1,000 ML IV SCH (20:16)
[2024-02-02] MEDS: SODIUM CHL 3% 200 ML IV ONE (20:19)
[2024-02-02 21:00] VITALS: BP 125/66; PULSE 63; RESP 20; TEMP 97.8; O2SAT 96
[2024-02-03] VITALS (8 sets, daily range): BP systolic 96–127; BP diastolic 46–67; PULSE 56–78; RESP 16–20; TEMP 97.8–98.4; O2SAT 96–97
[2024-02-03 06:40] LABS: Basophils # (auto) 0 10 ^3/uL (0-0.2); Basophils % (auto) 1.1 % (0.0-2.0); Eosinophils # (auto) 0 10 ^3/uL (0-0.8); Hematocrit 38.7 % (36.0-46.0); Hemoglobin 13.4 g/dL (12.2-16.2); Lymphocytes # (auto) 1.4 10 ^3/uL (0.4-5.4); Lymphocytes % (auto) 39.3 % (10.0-50.0); Mean Corpuscular Hemoglobin 33.5 pg (28.0-32.0); Mean Corpuscular Hgb Conc. 34.7 g/dL (32.0-36.0); Mean Corpuscular Volume 96.5 fL (80.0-100.0); Monocytes # (auto) 0.4 10 ^3/uL (0-1.3); Monocytes % (auto) 10.7 % (0.0-12.0); Neutrophils # (auto) 1.7 10 ^3/uL (1.6-8.6); Neutrophils % (auto) 48.9 % (37.0-80.0); Nucleated Red Blood Cells % 0.1 %; Red Blood Cells 4.01 10^6/uL (4.0-5.20); Red Cell Distribution Width 12.6 % (11.8-14.3); White Blood Cell 3.4 10^3/uL (4.4-10.8)
[2024-02-03 07:43] LABS: Alanine Aminotransferase 15 U/L (7-40); Alkaline Phosphatase 62 U/L (46-116); Anion Gap 6 (5-15); Blood Urea Nitrogen 5 mg/dL (9-23); Calcium 8.8 mg/dL (8.7-10.4); Carbon Dioxide 28 mmol/L (20-30); Chloride 99 mmol/L (98-107); Glucose 104 mg/dL (74-106); Potassium 3.3 mmol/L (3.5-5.1)
[2024-02-03 07:44] LABS: Albumin 3.3 g/dL (3.2-4.8); Aspartate Aminotransferase 12 U/L (13-40)
[2024-02-03 07:45] LABS: Bilirubin, Total 0.6 mg/dL (0.2-1.0); Phosphorus 2.6 mg/dL (2.4-5.1); Total Protein 5.1 g/dL (5.7-8.2)
[2024-02-03 07:48] LABS: BUN/Creatinine Ratio 10.9 (10.0-20.0)
[2024-02-03 07:51] LABS: Sodium 133 mmol/L (136-145)
[2024-02-03] MEDS: PANTOPRAZOLE 40 MG TAB PO SCH (10:23)
[2024-02-03] MEDS ORDERED: POTASSIUM EFFERVESENT TAB 25 MEQ GT STA (12:29)
[2024-02-03] MEDS: POTASSIUM EFFERVESENT TAB 25 MEQ PO STA (14:32)
[2024-02-03] MEDS: LACTULOSE 20Gm/30ML SOLN PO PRN (14:33)
[2024-02-03] MEDS: SODIUM CHLORIDE 1 GM TAB PO SCH (22:26)
[2024-02-04 01:00] VITALS: BP 120/68; PULSE 60; RESP 20; TEMP 97.8; O2SAT 97
[2024-02-04 05:10] VITALS: BP 127/78; PULSE 88; RESP 20; TEMP 97.8; O2SAT 96
[2024-02-04 06:00] LABS: Basophils # (auto) 0 10 ^3/uL (0-0.2); Basophils % (auto) 0.5 % (0.0-2.0); Eosinophils # (auto) 0 10 ^3/uL (0-0.8); Hematocrit 39.9 % (36.0-46.0); Hemoglobin 13.8 g/dL (12.2-16.2); Lymphocytes % (auto) 42.7 % (10.0-50.0); Mean Corpuscular Hemoglobin 32.9 pg (28.0-32.0); Mean Corpuscular Hgb Conc. 34.7 g/dL (32.0-36.0); Mean Corpuscular Volume 94.9 fL (80.0-100.0); Monocytes # (auto) 0.4 10 ^3/uL (0-1.3); Monocytes % (auto) 9.5 % (0.0-12.0); Neutrophils # (auto) 2.2 10 ^3/uL (1.6-8.6); Neutrophils % (auto) 47.3 % (37.0-80.0); Red Blood Cells 4.21 10^6/uL (4.0-5.20); Red Cell Distribution Width 12.8 % (11.8-14.3); White Blood Cell 4.6 10^3/uL (4.4-10.8)
[2024-02-04 06:03] LABS: Anion Gap 6 (5-15); Carbon Dioxide 26 mmol/L (20-30); Chloride 96 mmol/L (98-107); Potassium 3.8 mmol/L (3.5-5.1); Sodium 128 mmol/L (136-145)
[2024-02-04 06:04] LABS: Calcium 9.5 mg/dL (8.7-10.4)
[2024-02-04 06:09] LABS: BUN/Creatinine Ratio 15.4 (10.0-20.0); Blood Urea Nitrogen 8 mg/dL (9-23); Glucose 84 mg/dL (74-106)
[2024-02-04 08:00] VITALS: PULSE 59; PULSE 61; RESP 16; O2SAT 96
[2024-02-04 08:42] VITALS: BP 107/67; PULSE 69; RESP 16; TEMP 97.7; O2SAT 95
[2024-02-04] MEDS: BUDESONIDE PO SCH (11:21)
[2024-02-04] MEDS: GLYCOPYRROLATE PO SCH (11:21)
[2024-02-04] MEDS: [UNRECOGNIZED DRUG - OTHER] PO SCH (11:21)
[2024-02-04 12:54] VITALS: BP 98/60; PULSE 61; RESP 16; TEMP 97.7; O2SAT 96
[2024-02-04 13:16] VITALS: BP 98/60; PULSE 61; RESP 16; TEMP 97.7; O2SAT 96
[2024-02-04] MEDS ORDERED: [UNRECOGNIZED DRUG - OTHER] PO SCH (22:00)
[2024-02-04] MEDS ORDERED: BUDESONIDE PO SCH (22:00)
[2024-02-04] MEDS ORDERED: GLYCOPYRROLATE PO SCH (22:00)
== END 2024-02-04 14:42 | disposition home or self-care (01) | DRG 643 ==
LOC: ER 15:12 → OVERFLOW 17:51 → CENTRAL 01-30 00:52 → TELE-CENTR 02-02 10:04
PROVIDERS: ADMIT Internal Medicine Pulmonary Disease; ATTEND Internal Medicine Pulmonary Disease
DX: E22.2 Syndrome of inappropriate secretion of antidiuretic hormone (principal); G93.41 Metabolic encephalopathy; N30.00 Acute cystitis without hematuria; K80.20 Calculus of gallbladder without cholecystitis without obstruction; K59.00 Constipation, unspecified; R62.7 Adult failure to thrive; K57.30 Diverticulosis of large intestine without perforation or abscess without bleeding; N18.2 Chronic kidney disease, stage 2 (mild); E07.81 Sick-euthyroid syndrome; G30.9 Alzheimer's disease, unspecified; F02.80 Dementia in other diseases classified elsewhere, unspecified severity, without behavioral disturbance, psychotic disturbance, mood disturbance, and anxiety; J44.89 Other specified chronic obstructive pulmonary disease; E83.42 Hypomagnesemia; E11.22 Type 2 diabetes mellitus with diabetic chronic kidney disease; E87.6 Hypokalemia; G47.00 Insomnia, unspecified; E03.9 Hypothyroidism, unspecified; Z83.3 Family history of diabetes mellitus; Z80.0 Family history of malignant neoplasm of digestive organs
CPT/HCPCS: 36415; 71045; 74176; 76775; 80048; 80053; 81001; 82140; 82533; 82570; 82607; 82746; 82962; 83735; 83935; 84100; 84132; 84156; 84295; 84300; 84439; 84443; 84481; 84484; 85025; 87040; 87086; G0378; J1815; J2405; J7060

== ENCOUNTER → 2024-06-03 | Outpatient (CLI) | payer MEDICARE, BC ==
[2024-06-03 10:53] LABS: Chloride 100 mmol/L (98-107); Potassium 3.7 mmol/L (3.5-5.1); Sodium 137 mmol/L (136-145)
[2024-06-03 10:54] LABS: Anion Gap 7 (5-15); Calcium 10.1 mg/dL (8.7-10.4); Carbon Dioxide 30 mmol/L (20-31)
[2024-06-03 10:58] LABS: Uric Acid 3.2 mg/dL (3.1-7.8)
[2024-06-03 10:59] LABS: BUN/Creatinine Ratio 25.4 (10.0-20.0); Blood Urea Nitrogen 15 mg/dL (9-23); Glucose 94 mg/dL (74-106)
== END | disposition home or self-care (01) ==
LOC: LAB 09:57
PROVIDERS: ATTEND Internal Medicine
DX: J98.4 Other disorders of lung (principal); M81.0 Age-related osteoporosis without current pathological fracture; E87.1 Hypo-osmolality and hyponatremia
CPT/HCPCS: 36415; 80048; 84550

== ENCOUNTER 2024-12-22 06:29 | Outpatient (CLI) | payer MEDICARE, BC ==
[2024-12-22 07:16] LABS: Basophils # (auto) 0 10 ^3/uL (0-0.2); Basophils % (auto) 0.3 % (0.0-2.0); Eosinophils # (auto) 0 10 ^3/uL (0-0.8); Hematocrit 39.8 % (36.0-46.0); Hemoglobin 13.4 g/dL (12.2-16.2); Lymphocytes # (auto) 1.5 10 ^3/uL (0.4-5.4); Lymphocytes % (auto) 40.6 % (10.0-50.0); Mean Corpuscular Hemoglobin 31.3 pg (28.0-32.0); Mean Corpuscular Hgb Conc. 33.8 g/dL (32.0-36.0); Mean Corpuscular Volume 92.9 fL (80.0-100.0); Monocytes # (auto) 0.4 10 ^3/uL (0-1.3); Monocytes % (auto) 10.7 % (0.0-12.0); Neutrophils # (auto) 1.8 10 ^3/uL (1.6-8.6); Neutrophils % (auto) 48.4 % (37.0-80.0); Platelet Count (auto) 228 10^3/uL (140-450); Red Blood Cells 4.29 10^6/uL (4.0-5.20); White Blood Cell 3.7 10^3/uL (4.4-10.8)
[2024-12-22 08:13] LABS: Alanine Aminotransferase 9 U/L (7-40); Albumin 4.5 g/dL (3.2-4.8); Alkaline Phosphatase 80 U/L (46-116); Anion Gap 6 (5-15); Aspartate Aminotransferase 18 U/L (<34); BUN/Creatinine Ratio 19.5 (10.0-20.0); Blood Urea Nitrogen 16 mg/dL (9-23); Calcium 9.9 mg/dL (8.7-10.4); Carbon Dioxide 29 mmol/L (20-31); Chloride 104 mmol/L (98-107); Glucose 75 mg/dL (74-106); LDL Cholesterol 107 mg/dL (< 100); Sodium 139 mmol/L (136-145); Total Protein 6.4 g/dL (5.7-8.2); Triglycerides 69 mg/dL (< 150)
[2024-12-22 08:14] LABS: Bilirubin, Total 0.6 mg/dL (0.2-1.0); HDL Cholesterol 61 mg/dL (40-59)
[2024-12-22 09:15] LABS: Cholesterol 169 mg/dL (< 200)
== END 2024-12-22 17:00 | disposition home or self-care (01) ==
LOC: LAB 06:29
PROVIDERS: ATTEND Internal Medicine
DX: R73.03 Prediabetes (principal); M19.90 Unspecified osteoarthritis, unspecified site; Z79.899 Other long term (current) drug therapy
CPT/HCPCS: 36415; 80053; 80061; 83036; 85025

== ENCOUNTER → 2025-02-20 | Outpatient (CLI) | payer MEDICARE, BC ==
[2025-02-20 07:37] LABS: Hematocrit 36.5 % (36.0-46.0); Hemoglobin 12.5 g/dL (12.2-16.2); Mean Corpuscular Hemoglobin 33.2 pg (28.0-32.0); Mean Corpuscular Volume 97.0 fL (80.0-100.0); Nucleated Red Blood Cells % 0.0 %
== END | disposition home or self-care (01) ==
LOC: LAB 07:00
PROVIDERS: ATTEND Internal Medicine
DX: D72.819 Decreased white blood cell count, unspecified (principal)
CPT/HCPCS: 36415; 85025